=== PATIENT | female | born 1960 | race Caucasian/White ===

== ENCOUNTER 2016-07-09 17:07 | Emergency (ER) | payer MEDICAID ==
[~2016-07-09] VITALS: Ht 160 cm; Wt 125.0 kg
[~2016-07-09 17:07] MED LIST changes: -ACET-2890 PO; -ACET-62 PO; -CHLO25TA2 PO; -DOXY100T2 PO; -FISH1CAP2 PO; -HYDR25TA85 PO; -INSU100I3 SQ; -METF500T4 PO; -METH500C8 PO; -METO25TA6 PO; -TRIA15CR4 TOP; -[UNRECOGNIZED DRUG - CODE] PO
--- OUTSIDE RECORDS SUMMARY | 2016-07-09 17:11 | XMS REPORT ---
Author Author Shanta Wang Organization [employer] Address Unknown Phone Unavailable Care Team Providers Care Member Services Coordinator Name Role Phone Shanta Wang CP Unavailable Allergies No Known Allergies Problems Problem Type Condition Code Onset Dates Condition Status Problem Morbid obesity 278.01 Active Problem Atherosclerosis of other arteries I70.8 Active Problem Atherosclerosis of other specified arteries 440.8 Active Problem Pain in right knee M25.561 Active Problem Atherosclerotic heart disease of [place] coronary artery without angina pectoris I25.10 Active Problem Postprocedural hypertension I97.3 Active Problem Type 2 diabetes mellitus without complications E11.9 Active Problem Morbid (severe) obesity due to excess calories E66.01 Active Problem Essential (primary) hypertension I10 Active Problem Mixed hyperlipidemia E78.2 Active Problem 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 Active Problem Pain in joint, pelvic region and thigh 719.45 Active Problem Mixed hyperlipidemia 272.2 Active Problem Diabetes Mellitus Type 2, not stated as uncontrolled 250.00 Active Problem Hypertension, benign 401.1 Active Problem Unspecified hearing loss 389.9 Active Medications No Known Medications Results No Known Results Summary Purpose [employer]Clinical[employer] Submission
--- OUTSIDE RECORDS SUMMARY | 2016-07-09 17:11 | XMS REPORT ---
Author Author Shanta Wang [facility] e[employer] Address Unknown Phone Unavailable Care Team Providers Care Real Estate Processor Name Role Phone Shanta Wang CP Unavailable Allergies No Known Allergies Problems Problem Type Condition ICD-9 Code Onset Dates Condition Status Problem Mixed hyperlipidemia 272.2 Active Assessment Diabetes Mellitus Type 2, not stated as uncontrolled 250.00 Active Problem Morbid obesity 278.01 Active Problem Unspecified hearing loss 389.9 Active Problem Atherosclerosis of other specified arteries 440.8 Active Problem 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 Active Problem Hypertension, benign 401.1 Active Problem Diabetes Mellitus Type 2, not stated as uncontrolled 250.00 Active Problem Pain in joint, pelvic region and thigh 719.45 Active Medications Medication Code System Code Instructions Start Date End Date Status Dosage Levemir Flexpen [facility] [address]-30 100 UNIT/ML Subcutaneous at bedtime May 27, 2013 33 units at bedtime daily Results No Known Results Summary Purpose [employer]Clinical[employer] Submission
--- OUTSIDE RECORDS SUMMARY | 2016-07-09 17:11 | XMS REPORT ---
Author Author Shanta Wang Organization [employer] Address Unknown Phone Unavailable Care Team Providers Care Microsoft Dynamics Developer Name Role Phone Shanta Wang CP Unavailable Allergies No Known Allergies Problems Problem Type Condition Code Onset Dates Condition Status Problem Mixed hyperlipidemia 272.2 Active Problem Morbid obesity 278.01 Active Problem Unspecified hearing loss 389.9 Active Problem Atherosclerosis of other specified arteries 440.8 Active Problem 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 Active Problem Hypertension, benign 401.1 Active Problem Diabetes Mellitus Type 2, not stated as uncontrolled 250.00 Active Problem Pain in joint, pelvic region and thigh 719.45 Active Medications No Known Medications Results No Known Results Summary Purpose [employer]Clinical[employer] Submission
--- OUTSIDE RECORDS SUMMARY | 2016-07-09 17:11 | XMS REPORT ---
Author Abram Bear Organization [employer] Address Unknown Phone Unavailable Care Team Providers Care Field Nurse Case Manager Name Role Phone Abram Sutton CP Unavailable Allergies No Known Allergies Problems Problem Type Condition Code Onset Dates Condition Status Problem Morbid obesity 278.01 Active Problem Atherosclerosis of other arteries I70.8 Active Problem Atherosclerosis of other specified arteries 440.8 Active Problem Pain in right knee M25.561 Active Problem Atherosclerotic heart disease of [place] coronary artery without angina pectoris I25.10 Active Problem Postprocedural hypertension I97.3 Active Problem Type 2 diabetes mellitus without complications E11.9 Active Problem Morbid (severe) obesity due to excess calories E66.01 Active Problem Essential (primary) hypertension I10 Active Problem Mixed hyperlipidemia E78.2 Active Assessment Postprocedural hypertension I97.3 Active Assessment Type 2 diabetes mellitus without complications E11.9 Active Assessment Atherosclerosis of [place] arteries of extremities with intermittent claudication, bilateral legs I70.213 Active Assessment Hyperlipidemia, mixed E78.2 Active Problem 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 Active Problem Pain in joint, pelvic region and thigh 719.45 Active Problem Mixed hyperlipidemia 272.2 Active Problem Diabetes Mellitus Type 2, not stated as uncontrolled 250.00 Active Problem Hypertension, benign 401.1 Active Problem Unspecified hearing loss 389.9 Active Medications Medication Code System Code Instructions Start Date End Date Status Dosage Metoprolol Tartrate [facility] [address]-02 25 MG Orally Twice a day 1/ 2 tablet Lisinopril [facility] [address]-66 10 MG Orally Once a day 1 tablet MSM [facility] [address] 1500 MG Orally 2 in am, 1 hs as directed Fish Oil [facility] [address]-85 1000 MG Orally Once a day 1 capsule Levemir FlexTouch [facility] 3434[address]-25 100 units/mL Subcutaneous Once a day Feb 13, 2015 36 units at bedtime Multivitamins [facility] [address]-56 Orally as directed Tylenol Extra Strength [facility] [address]-97 500 MG Orally every 6 hrs 1 tablet as needed Simvastatin [facility] [address]-81 40 MG Orally Once a day 1 tablet in the evening OneTouch Ultra 2 [facility] [address]-65 w/Device Dx E11.9 qid. Include strips, glucometer June 12, 2015 as directed Aspirin [facility] [address]-71 325 MG Orally Once a day 1 tablet Vitamin C [facility] [address]00 500 MG Orally as directed NovoLog Flexpen [facility] [address]-49 100 UNIT/ML Subcutaneous three times a day May 27, 2013 14 units with breakfast and lunch and 25 units with supper Chlorthalidone [facility] [address]-15 25 MG Orally Once a day 1 tablet in the morning Metformin HCl [facility] [address]-39 500 MG Orally Twice a day Mar 23, 2015 1 tablet with meals Procedures Procedure Coding System Code Date IH MicroAlb/Creat Ratio, Urine CPT-4 85398 Dec 10, 2015 COMPLETE CBC W/AUTO DIFF WBC CPT-4 66740 Dec 10, 2015 IH MicroAlb/Creat Ratio, Urine CPT-4 59316 Dec 10, 2015 IH CMP CPT-4 84545 Dec 10, 2015 URINALYSIS WITH MICROSCOPIC CPT-4 25813 Dec 10, 2015 IH LIPID PANEL CPT-4 88247 Dec 10, 2015 Results No Known Results Summary Purpose eClinicalWorks Submission
--- OUTSIDE RECORDS SUMMARY | 2016-07-09 17:11 | XMS REPORT ---
Author Author Shanta aWng Organization [employer] Address Unknown Phone Unavailable Care Team Providers Care Newswriter Name Role Phone Shanta Wang CP Unavailable Allergies No Known Allergies Problems Problem Type Condition Code Onset Dates Condition Status Problem Morbid obesity 278.01 Active Problem Atherosclerosis of other arteries I70.8 Active Problem Atherosclerosis of other specified arteries 440.8 Active Problem Pain in right knee M25.561 Active Problem Atherosclerotic heart disease of [place] coronary artery without angina pectoris I25.10 Active [...]
--- OUTSIDE RECORDS SUMMARY | 2016-07-09 17:11 | XMS REPORT ---
Author Author Shanta Wang [facility] eClinicalWorks Address Unknown Phone Unavailable Care Team Providers Care Fountain Waitress/Waiter Name Role Phone Shanta Wang CP Unavailable Allergies No Known Allergies Problems Problem Type Condition Code Onset Dates Condition Status Problem Pain in joint, pelvic region and thigh 719.45 Active Problem Unspecified hearing loss 389.9 Active Problem Diabetes Mellitus Type 2, not stated as uncontrolled 250.00 Active Problem Mixed hyperlipidemia E78.2 Active Problem Type 2 diabetes mellitus without complications E11.9 Active Problem Essential (primary) hypertension I10 Active Problem Atherosclerosis of other specified arteries 440.8 Active Problem Morbid obesity 278.01 Active Problem Morbid (severe) obesity due to excess calories E66.01 Active Problem Atherosclerosis of other arteries I70.8 Active Problem Mixed hyperlipidemia 272.2 Active Problem Hypertension, benign 401.1 Active Problem 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
--- OUTSIDE RECORDS SUMMARY | 2016-07-09 17:11 | XMS REPORT ---
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
--- OUTSIDE RECORDS SUMMARY | 2016-07-09 17:12 | XMS REPORT | Continuity of Care Document ---
Author Author [facility] Organization [facility] Address Unknown Phone Unavailable Care Team Providers Care Mortgage Operations Manager Name Role Phone LEN RENE Primary Care Physician [phone] Insurance Providers Payer Name Policy Number Subscriber Name Relationship [facility] Plan [id number] Latisha Felder 16 Self Advance Directives Directive Response Recorded Date/Time Advanced Directives Type None 02/03/14 9:30pm Problems Medical Problems Problem Onset Date Status Cellulitis Unknown Active Medications Medication Dose Route Sig Days/Qty Instructions Order Date Discontinued Date Status Insulin Glargine 10 Unit SQ BEDTIME 08/26/10 11/10/11 Discontinued Insulin Aspart 12-23 U SQ DIRECTED 12 WITH BREAKFAST 08/26/10 Active Simvastatin 40 Mg PO BEDTIME 08/26/10 Active Aspirin 325 Mg PO DAILY 11/10/11 Active Insulin Detemir 33 U SQ BEDTIME 11/10/11 Active Lisinopril 5 Mg PO DAILY 11/10/11 Active Multivitamins 1 Tab PO DAILY 11/10/11 Active Ascorbic Acid 1,000 Mg PO DAILY 11/10/11 Active [place]-3 Fatty Acids/Fish Oil 1,000 Mg PO DAILY 01/10/14 Active Gluc HCl/MSM/C/Mn/Greer/Ging 1 Tab PO TWICE A DAY 01/10/14 Active Amoxicillin/Potassium Clav 1 Tab PO Q12H 10 Days 02/03/14 Active Social History Social History Problem Response Recorded Date/Time Chewing Tobacco Status No 11/11/2011 9:40am Hx Substance Use No 02/03/2014 9:30pm Hx Alcohol Use No 02/03/2014 9:30pm Has the pt used tobacco in the last 12 months No 01/10/2014 10:30am Query Response Start Date Stop Date Smoking Status Never smoker Hospital Discharge Instructions No hospital discharge instructions. Plan of Care No plan of care. Functional Status Query Response Date Recorded Physical Hygiene Self February 03, 2014 9:30pm Disabilities Visual February 03, 2014 9:30pm Devices Used Glasses Walker February 03, 2014 9:30pm Dressing Self February 03, 2014 9:30pm Ambulation Self February 03, 2014 9:30pm Diet Self February 03, 2014 9:30pm Mental Status Alert Oriented February 03, 2014 9:30pm Disabilities Visual February 03, 2014 9:30pm Devices Used Glasses Walker February 03, 2014 9:30pm Physical Hygiene Self February 03, 2014 9:30pm Dressing Self February 03, 2014 9:30pm Ambulation Self February 03, 2014 9:30pm Diet Self February 03, 2014 9:30pm Allergies, Adverse Reactions, Alerts Allergen Type Severity Reaction Status Last Updated Ibuprofen Allergy Intermediate KIDNEY FAILURE Active 02/03/14 Immunizations Name Given Type Hx Influenza Vaccination Y FALL 2013 Historical Hx Pneumococcal Vaccination No Historical Hx Influenza Vaccination Y FALL 2013 Historical Vital Signs Acute Vital Signs Vital Response Date/Time Temperature (Fahrenheit) 97.6 deg F (96.8 - 99.1) Temperature (Calculated Celsius) 36.37613 degrees C (36.0 - 37.3) Pulse Rate (adult) 88 bpm (60 - 100) Respiratory Rate 20 breaths/min (10 - 20) O2 Sat by Pulse Oximetry 96 % (90 - 100) Blood Pressure 140/76 mm Hg Height 5 ft 4 in Weight 279 lb Body Mass Index 47.0 kg/m^2 Results Test Source Date Result Interp. Ref. Range Comments Activated Partial Thromboplast Time August 26, 2010 10:35am 26.5 SEC N 24- 36 Alanine Aminotransferase (ALT/SGPT) January 21, 2012 10:15am 31 U/L N 9 -52 Albumin January 21, 2012 10:15am 4.0 G/DL N 3.5-5.0 Albumin/Globulin Ratio January 21, 2012 10:15am 1.4 RATIO N 1.1-2.2 Alkaline Phosphatase January 21, 2012 10:15am 113 U/L N 38-126 Amylase Level August 26, 2010 10:40am 36 U/L N 30-110 Anion Gap January 21, 2012 10:15am 10 MEQ/L N 5-15 Aspartate Amino Transf (AST/SGOT) January 21, 2012 10:15am 31 U/L N 14- 36 B-Type Natriuretic Peptide August 26, 2010 10:35am 406 PG/ML H 15-100 BUN/Creatinine Ratio January 21, 2012 10:15am 29 RATIO H 6-26 Basophils # (Auto) November 11, 2011 10:09am 0.0 T/MM3 N 0-0.2 COMMENT will call when pt arrives Basophils (%) (Auto) November 11, 2011 10:09am 0.9 % N 0-2 COMMENT will call when pt arrives Blood Urea Nitrogen January 21, 2012 10:15am 29.0 MG/DL H 7-17 Calcium Level January 21, 2012 10:15am 9.2 MG/DL N 8.4-10.2 Calculated Osmolality January 21, 2012 10:15am 279 MOSM/KG N 261-280 Carbon Dioxide Level January 21, 2012 10:15am 26 MEQ/L N 22-30 Chloride Level January 21, 2012 10:15am 105 MEQ/L N 98-107 Cholesterol Level January 21, 2012 10:15am 144 MG/DL N 132-199 Cholesterol/HDL Ratio January 21, 2012 10:15am 3.2 RATIO N 0-4.0 Conjugated Bilirubin October 25, 2010 10:00am 0.00 MG/DL N 0.00-0.30 Creatine Kinase MB August 26, 2010 1:50pm 66.8 NG/ML H 0-3.4 Creatinine January 21, 2012 10:15am 1.0 MG/DL N 0.7-1.2 Eosinophils # (Auto) November 11, 2011 10:09am 0.2 T/MM3 N 0-0.5 COMMENT will call when pt arrives Eosinophils (%) (Auto) November 11, 2011 10:09am 6.0 % H 0-4 COMMENT will call when pt arrives Globulin January 21, 2012 10:15am 2.8 G/DL N 2.4-3.6 Glucose Level January 21, 2012 10:15am 130 MG/DL H 65-110 Hematocrit November 11, 2011 10:09am 39.7 % N 36-46 COMMENT will call when pt arrives Hemoglobin November 11, 2011 10:09am 13.0 GM/DL N 12-16 COMMENT will call when pt arrives Hemoglobin A1c January 21, 2012 10:15am 5.9 % DL 6-7 <6.0 NON- DIABETIC RANGE6.0-7.0 ADA THERAPEUTIC RANGE >7.0 ACTION SUGGESTED LDL Cholesterol, Calculated January 21, 2012 10:15am 99 N 66-159 Lipase August 26, 2010 10:40am 77 U/L N 23-300 Lymphocytes # (Auto) November 11, 2011 10:09am 1.2 T/MM3 N 1-4.8 COMMENT will call when pt arrives Lymphocytes (%) (Auto) November 11, 2011 10:09am 33.0 % N 23-45 COMMENT will call when pt arrives Mean Corpuscular Hemoglobin November 11, 2011 10:09am 28.4 UUG N 26-34 COMMENT will call when pt arrives Mean Corpuscular Hemoglobin Concent November 11, 2011 10:09am 32.7 GM/DL N 31-37 COMMENT will call when pt arrives Mean Corpuscular Volume November 11, 2011 10:09am 86.9 UM3 N 80-100 COMMENT will call when pt arrives Mean Platelet Volume November 11, 2011 10:09am 8.9 UM3 L 9.4-12.4 COMMENT will call when pt arrives Monocytes # (Auto) November 11, 2011 10:09am 0.3 T/MM3 N 0-0.8 COMMENT will call when pt arrives Monocytes (%) (Auto) November 11, 2011 10:09am 7.7 % N 0-9.0 COMMENT will call when pt arrives Neutrophils # (Auto) November 11, 2011 10:09am 1.8 T/MM3 N 1.8-7.7 COMMENT will call when pt arrives Neutrophils (%) (Auto) November 11, 2011 10:09am 52.1 % N 33-66 COMMENT will call when pt arrives Platelet Count November 11, 2011 10:09am 154 T/MM3 N 130-400 COMMENT will call when pt arrives Potassium Level January 21, 2012 10:15am 4.9 MEQ/L N 3.6-5 Prothromb Time International Ratio August 26, 2010 10:35am 1.11 H 0.86- 1.10 THERAPUTIC RANGE=2.00-3.00 FOR ANTI-THROMBOSIS THERAPUTIC RANGE=2.50- 3.50 FOR IMPLANTED VALVE RDW Standard Deviation November 11, 2011 10:09am 42.0 FL N 36.9-50.2 COMMENT will call when pt arrives Red Blood Count November 11, 2011 10:09am 4.57 M/MM3 N 4.00-5.20 COMMENT will call when pt arrives Sodium Level January 21, 2012 10:15am 141 MEQ/L N 134-144 Thyroid Stimulating Hormone (TSH) October 23, 2011 12:55pm 0.99 MIU/L N 0.47-4.68 Total Bilirubin January 21, 2012 10:15am 0.30 MG/DL N 0.20-1.30 Total Creatine Kinase August 26, 2010 1:50pm 667 U/L H 30-135 Total Protein January 21, 2012 10:15am 6.8 G/DL N 6.3-8.2 Triglycerides Level January 21, 2012 10:15am 116 MG/DL N 35-135 Troponin I August 26, 2010 1:50pm 9.270 ng/ml DPH 0-0.12 Unconjugated Bilirubin October 25, 2010 10:00am 0.30 MG/DL N 0.00- 1.10 Urine Microalbumin January 26, 2012 12:15pm < 5.0 MG/L 0-17 Urine Random Microalbumin January 31, 2011 10:42am Ref lab rpt scanned - --- 02/03/11914 ---ALBR previously reported as: SEND OUT VLDL Cholesterol January 21, 2012 10:15am 23.2 MG/DL N 0-28 White Blood Count November 11, 2011 10:09am 3.5 T/MM3 L 4.5-11.0 COMMENT will call when pt arrives Glucometer January 11, 2014 7:32am 111 mg/dL H 65-110 Lab Scanned Report January 26, 2012 9:09pm LAB TEST FORM REQUEST [id number] - HDL Cholesterol Direct January 21, 2012 10:15am 45 MG/DL N 40-60 Glomerular Filtration Rate Calc January 21, 2012 10:15am 58 - Immature Granulocyte # (Auto) November 11, 2011 10:09am 0.01 T/MM3 N 0.00-0.03 COMMENT will call when pt arrives Immature Granulocyte % (Auto) November 11, 2011 10:09am 0.3 % N 0.0- 0.5 COMMENT will call when pt arrives Procedures Procedure Status Date Provider(s) COMP SCREEN MAMMOGRAM ADD-ON completed 12/28/13 MAMMOGRAM SCREENING completed 12/28/13 LESION REMOVE COLONOSCOPY completed 01/11/14 SCOTT CALDERON MD REAGENT STRIP/BLOOD GLUCOSE completed 01/11/14 [id number]"RINGERS LACTATE INFUSION, UP TO 1000 CC" completed 01/11/14 Encounters Encounter Location Date/Time Departed Emergency Room [facility] 02/03/14 7:17pm Registered Clinic [facility] 12/28/13 9:22am Registered [facility] 12/22/13 9:30am Registered Clinic [facility] 11/28/13 11:28am Recent Diagnosis
--- OUTSIDE RECORDS SUMMARY | 2016-07-09 17:12 | XMS REPORT | Continuity of Care Document ---
Author Author [facility] Organization [facility] Address Unknown Phone Unavailable Care Team Providers Care Brick Mason Name Role Phone David MELLO MD Primary Care Physician [phone] Insurance Providers Guarantor Latisha Felder Address [address] [id number] C Email DENIED/NO TO PT PORTAL Payer [facility] Community Plan Policy Number [id number] Subscriber's Name JaxonAzulLatisha Slick Relationship 18 Self Effective Date 15 Expiration Date 15 Advance Directives Directive Response Recorded Date/Time Ordered Resuscitation Status Full Code 10/16/15 10:37am Resuscitation Documents on File No 10/16/15 12:13pm DPOA for Healthcare Only No 10/16/15 12:13pm Living Will No 10/16/15 12:13pm Problems Active Problems Medical Problem Onset Date Status Cellulitis Unknown Acute Cellulitis Unknown Acute Medications Current Home Medications Medication Dose Units Route Directions Days Qty Instructions Start Date Ascorbic Acid (Vitamin C) 500 Mg Tablet 1 Tab Oral Daily 10/16/15 Aspirin 325 Mg Tablet 325 Mg Oral Daily 11/10/11 Gluc Hcl/Msm/C/Mn/[place]/Ging (Msm Glucosamine Complex Tab) 1 Each Tablet 1 Tab Oral Twice A Day 01/10/14 Insulin Aspart (Novolog) 100 U/Ml Cartridge 12-23 U Sub-Q As Directed 14 WITH BREAKFAST 14 WITH LUNCH 23 WITH DINNER 08/26/10 Insulin Detemir (Levemir) 100 U/Ml Insuln.pen 35 U Sub-Q Bedtime 11/10/11 Lisinopril 10 Mg Tablet 10 Mg Oral Daily for Hypertension Multivitamins (Multivitamin) 1 Tab Tablet 1 Tab Oral Daily [place]-3S/Dha/Epa/Fish Oil (Fish Oil 1,200 Mg Softgel) 1 Each Capsule 1,200 Mg Oral Daily 10/16/15 Simvastatin 40 Mg Tablet 40 Mg Oral Bedtime 08/26/10 Past Home Medications Medication Directions Ordered Status Insulin Glargine (Lantus Solostar) 1 Unit Pen, 10 Unit Sub-Q Bedtime Discontinued Social History Social History Problem Response Recorded Date/Time Onset Date Status Reason for Hospitalization [facility] 10/16/2015 6:54pm Not Applicable Not Applicable Chewing Tobacco Status No 11/11/2011 9:40am Not Applicable Not Applicable Hx Substance Use No 10/16/2015 12:22pm Not Applicable Not Applicable Hx Alcohol Use No 10/16/2015 12:22pm Not Applicable Not Applicable Has the pt used tobacco in the last 12 months No 10/16/2015 12:22pm Not Applicable Not Applicable Query Response Start Date Stop Date Smoking Status Former smoker Hospital Discharge Instructions Instructions: Care Instructions: Reason for Hospitalization: [facility] I was in the hospital because (patient own words): "CHECK MY ARTERIES" Discharge Activity: Light Activity for: 1 week Lift no more than 10 pounds for: 1 week (includes no pulling, pushing, tugging) Follow Up Appointments: FOLLOW UP WITH DR. BULLOCK IN HIS OFFICE ON 11/13/2015 AT 11:50 AM. Pending Lab / Results: No Pending Lab Patient Instructions: Do not drive, operate machinery, drink alcohol for: 1 week Wound/Incision Care: Keep clean and dry Notify Physician If: develop redness, swelling or drainage at site or for fever more than 101.5 degrees Condition at time of discharge: Good Plan of Care Discharge Date 10/16/15 8:10pm Instructions/Education Provided [facility] [place] Heart Cath Prescriptions See Medication Section Functional Status Query Response Date Recorded Mobility Status Ambulatory October 16, 2015 12:18pm Assistive Devices Standard Walker October 16, 2015 12:18pm Activity Limitations None October 16, 2015 12:18pm Feeding Ability Independent October 16, 2015 12:18pm Toileting Ability Independent October 16, 2015 12:18pm Grooming Ability Independent October 16, 2015 12:18pm Dressing Ability Independent October 16, 2015 12:18pm Driving Ability Independent October 16, 2015 12:18pm Housework Ability Assist October 16, 2015 12:18pm Meal Preparation Ability Assist October 16, 2015 12:18pm Stair Climbing Ability Assist October 16, 2015 12:18pm Ability to complete ADL's impeded by No change October 16, 2015 12:18pm Cognitive/Perceptual Impairments Impaired vision October 16, 2015 12:18pm Visual Assistive Devices Glasses October 16, 2015 12:18pm Preferred Method of Learning Reading Listening October 16, 2015 12:18pm Allergies, Adverse Reactions, Alerts Allergen Type Severity Reaction Status Last Updated Ibuprofen Allergy Intermediate KIDNEY FAILURE Active 10/16/15 Immunizations Query Response on File Recorded Date/Time Hx Influenza Vaccination Y fall 201410/16/15 12:22pm Hx Pneumococcal Vaccination No 10/16/15 12:22pm Hx Influenza Vaccination Y fall 201410/16/15 12:22pm Influenza Vaccine Hx fall 201410/16/15 12:21pm Vital Signs Acute Vital Signs Vital Response Date/Time Temperature (Fahrenheit) 97.4 deg F (96.8 - 99.1) 10/16/2015 7:42pm Temperature (Calculated Celsius) 36.48766 degrees C (36.0 - 37.3) 10/16/2015 7:42pm Temperature Source Oral 10/16/2015 7:42pm Pulse Rate (adult) 97 bpm (60 - 100) 10/16/2015 7:42pm Respiratory Rate 25 breaths/min (10 - 20) 10/16/2015 7:42pm O2 Sat by Pulse Oximetry 96 % (90 - 100) 10/16/2015 7:42pm Oxygen Delivery Method Room Air 10/16/2015 7:42pm Oxygen Delivery Method Room Air 10/16/2015 12:29pm Blood Pressure 115/59 mm Hg 10/16/2015 7:42pm Blood Pressure Source Automatic Cuff 10/16/2015 7:42pm Height (Feet) 5 feet 10/16/2015 12:12pm Height (Inches) 4.00 inches 10/16/2015 12:12pm Weight (Kilograms) 126.000 kg 10/16/2015 12:21pm Body Mass Index (BMI) 47.7 10/16/2015 12:12pm Results Laboratory Results Test Name Result Units Flags Reference Collection Date/Time Result Date/ Time Comments White Blood Count 4.0 T/MM3 L 4.5-11.0 10/16/2015 12:50pm 10/16/2015 1: 18pm Red Blood Count 4.13 M/MM3 4.00-5.20 10/16/2015 12:50pm 10/16/2015 1: 18pm Hemoglobin 12.3 GM/DL 12-16 10/16/2015 12:50pm 10/16/2015 1:18pm Hematocrit 38.3 % 36-46 10/16/2015 12:50pm 10/16/2015 1:18pm Mean Corpuscular Volume 92.7 UM3 80-100 10/16/2015 12:50pm 10/16/2015 1 :18pm Mean Corpuscular Hemoglobin 29.8 UUG 26-34 10/16/2015 12:50pm 2015 1:18pm Mean Corpuscular Hemoglobin Concent 32.1 GM/DL 31-37 10/16/2015 12:50pm 10/16/2015 1:18pm RDW Standard Deviation 45.5 FL 36.9-50.2 10/16/2015 12:50pm 10/16/2015 1:18pm Platelet Count 170 T/MM3 130-400 10/16/2015 12:50pm 10/16/2015 1:18pm Mean Platelet Volume 9.4 UM3 9.4-12.4 10/16/2015 12:50pm 10/16/2015 1: 18pm Neutrophils (%) (Auto) 53.4 % 33-66 10/16/2015 12:50pm 10/16/2015 1: 18pm Lymphocytes (%) (Auto) 34.7 % 23-45 10/16/2015 12:50pm 10/16/2015 1: 18pm Monocytes (%) (Auto) 7.3 % 0-9.0 10/16/2015 12:50pm 10/16/2015 1:18pm Eosinophils (%) (Auto) 3.5 % 0-4 10/16/2015 12:50pm 10/16/2015 1:18pm Basophils (%) (Auto) 0.8 % 0-2 10/16/2015 12:50pm 10/16/2015 1:18pm Immature Granulocyte % (Auto) 0.3 % 0.0-0.5 10/16/2015 12:50pm 2015 1:18pm Absolute Neutrophils (auto) 2.1 T/MM3 1.8-7.7 10/16/2015 12:50pm 2015 1:18pm Absolute Lymphocytes (auto) 1.4 T/MM3 1-4.8 10/16/2015 12:50pm 2015 1:18pm Absolute Monocytes (auto) 0.3 T/MM3 0-0.8 10/16/2015 12:50pm 2015 1:18pm Absolute Eosinophils (auto) 0.1 T/MM3 0-0.5 10/16/2015 12:50pm 2015 1:18pm Absolute Basophils (auto) 0.0 T/MM3 0-0.2 10/16/2015 12:50pm 2015 1:18pm Absolute Immature Granulocyte (auto 0.01 T/MM3 0.00-0.03 10/16/2015 12: 50pm 10/16/2015 1:18pm Icterus Index < 2 0-7 10/16/2015 12:50pm 10/16/2015 1:26pm Chemistry Specimen Hemolysis < 15 0-25 10/16/2015 12:50pm 10/16/2015 1:26pm 0-25: Specimen Exhibited No Hemolysis. Turbidity < 20 0-20 10/16/2015 12:50pm 10/16/2015 1:26pm Sodium Level 143 MEQ/L 134-144 10/16/2015 12:50pm 10/16/2015 1:26pm Potassium Level 4.4 MEQ/L 3.6-5 10/16/2015 12:50pm 10/16/2015 1:26pm Chloride Level 106 MEQ/L 98-107 10/16/2015 12:50pm 10/16/2015 1:26pm Carbon Dioxide Level 24 MEQ/L 22-30 10/16/2015 12:50pm 10/16/2015 1: 26pm Anion Gap 13 MEQ/L 5-15 10/16/2015 12:50pm 10/16/2015 1:26pm Blood Urea Nitrogen 19.0 MG/DL H 7-17 10/16/2015 12:50pm 10/16/2015 1: 26pm Creatinine 0.8 MG/DL 0.7-1.2 10/16/2015 12:50pm 10/16/2015 1:26pm BUN/Creatinine Ratio 24 RATIO 6-26 10/16/2015 12:50pm 10/16/2015 1: 26pm Glomerular Filtration Rate Calc 74 10/16/2015 12:50pm 10/16/2015 1: 26pm Glucose Level 130 MG/DL H 65-110 10/16/2015 12:50pm 10/16/2015 1:26pm Calculated Osmolality 279 MOSM/KG 261-280 10/16/2015 12:50pm 2015 1:26pm Calcium Level 9.5 MG/DL 8.4-10.2 10/16/2015 12:50pm 10/16/2015 1:26pm Procedures Procedure Status Date Provider(s) LOWER EXTREMITY STUDY Completed 08/15/15 EXTREMITY STUDY Completed 08/15/15 Encounters Encounter Location Arrival/Admit Date Discharge/Depart Date Attending Provider Departed [facility] 10/16/15 11:55am 10/16/15 8:10pm MARCE BULLOCK MD Registered [facility] 08/15/15 2:35pm DANI CALIX DO
--- OUTSIDE RECORDS SUMMARY | 2016-07-09 17:12 | XMS REPORT ---
Author Author Shanta Wang [facility] eClinicalWorks Address Unknown Phone Unavailable Care Team Providers Care Jewelry Setter Name Role Phone Shanta Wang CP Unavailable [...] Instructions Start Date End Date Status Dosage oger Blood Glucose Test [facility] [address] none In Vitro Four times a day Dx E11.9 Jan 17, 2015 as directed Results No Known Results Summary Purpose Your Energy[employer] Submission
--- OUTSIDE RECORDS SUMMARY | 2016-07-09 17:12 | XMS REPORT ---
Author Author Shanta Wang eClinicalWorks Address Unknown Phone Unavailable Care Team Providers Care Clerical Dentist Assistant Name Role Phone Shanta Wang CP Unavailable Allergies, Adverse Reactions, Alerts Substance Reaction Event Type Ibuprofen kidney failure Drug Allergy Problems Problem Type Condition Code Onset Dates [...] Atherosclerosis of other arteries I70.8 Active Assessment Atherosclerosis of other arteries I70.8 Active Assessment Morbid (severe) obesity due to excess calories E66.01 Active Assessment Encounter for screening for malignant neoplasm of cervix Z12.4 Active Assessment Encounter for immunization Z23 Active Assessment Essential (primary) hypertension I10 Active Problem Mixed hyperlipidemia 272.2 Active Assessment Type 2 diabetes mellitus without complications E11.9 Active Problem Hypertension, benign 401.1 Active Assessment Mixed hyperlipidemia E78.2 Active Problem 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 Active Medications Medication Code System Code Instructions Start Date End Date Status Dosage Metoprolol Tartrate [facility] [address]-96 25 MG Orally Twice a day 1/ 2 tablet Simvastatin [facility] [address]-18 40 MG Orally Once a day 1 tablet in the evening NovoLog Flexpen [facility] [address]-71 100 UNIT/ML Subcutaneous three times a day May 27, 2013 14 units with breakfast and lunch and 23 units with supper MSM [facility] [address] 1500 MG Orally 2 in am, 1 hs as directed [employer] Blood Glucose Test [facility] [address] none In Vitro Four times a day Dx E11.9 Jan 17, 2015 as directed Aspirin [facility] [address]-66 325 MG Orally Once a day 1 tablet Victoza [facility] [address]-11 18 MG/3ML Subcutaneous Once a day Mar 05, 2015 July 03, 2015 0.6mg for 1 week then 1.2 mg for 1 week then 1.8 mg daily Levemir FlexTouch [facility] 1639-4[address]-77 100 units/mL Subcutaneous Once a day Feb 13, 2015 35 units at bedtime Vitamin C [facility] [address] 500 MG Orally as directed Multivitamins [facility] [address]-91 Orally as directed Tylenol Extra Strength [facility] [address]-49 500 MG Orally every 6 hrs 1 tablet as needed Fish Oil [facility] [address]-29 1000 MG Orally Once a day 1 capsule Chlorthalidone [facility] [address]-73 25 MG Orally Once a day 1 tablet in the morning Lisinopril [facility] [address]-45 10 MG Orally Once a day 1 tablet Procedures Procedure Coding System Code Date OFFICE VISIT, EST-MOD. COMPLEXITY (25 MIN) CPT-4 61559 Mar 05, 2015 URINALYSIS, IN HOUSE CPT-4 66413 Mar 05, 2015 HEMOGLOBIN A1C, IN [place] CPT-4 00066 Mar 05, 2015 IH LIPID PANEL CPT-4 16797 Mar 05, 2015 IH CMP CPT-4 98192 Mar 05, 2015 ADMINISTRATION, 1ST IMMUNIZATION CPT-4 28955 Mar 05, 2015 FLU VACCINE NO PRESERV 3 & > CPT-4 91712 Mar 05, 2015 Vital Signs Date/Time: Mar 05, 2015 Height 65 in Weight 260 lbs Temperature 97.5 F Blood Pressure Diastolic 67 mm Hg Blood Pressure Systolic 104 mm Hg Cardiac Monitoring Heart Rate 79 /min BMI 43.26 Index Respiratory Rate 16 /min Results Name Result Date Reference Range Unit Abnormality Flag In House CMP ----AST 21 20150306 11 - 38 u/L ----ALT 26 20150306 10 - 47 u/L ----CO2 26 20150306 18 - 33 mmol/L ----Chloride 102 20150306 98 - 108 mmol/L ----Glucose 176* 20150306 73 - 118 mg/DL ----Calcium 9.5 20150306 8.0 - 10.3 mg/DL ----BUN 25* 20150306 7 - 22 mg/DL ----Total Protein 7.3 20150306 6.4 - 8.1 G/DL ----Creatinine 1.0 59542143 0.6 - 1.2 mg/DL ----Sodium 149* 20150306 128 - 145 mmol/L ----Alkaline Phosphatase 96 20150306 53 - 128 u/L ----Albumin 3.7 58308357 3.3 - 5.5 g/DL ----Potassium >8.5* 16695501 3.6 - 5.1 mmol/L ----Total Bilirubin 0.6 21209499 0.2 - 1.6 mg/DL In House Lipid Panel ----Chol/HDL Ratio 3.6 20150306 ----nHDLc 112 20150306 ----VLDL 47 20150306 ----LDL 66 20150306 ----Cholesterol 156 20150306 ----Triglycerides 234 20150306 ----HDL 43 20150306 In House HB A1c ----Hemoglobin A1c 7.7 20150305 In [place] Urinalysis, automated ----ANY small 20150305 ----BLO negative 20150305 ----NIT negative 20150305 ----SG >=1.030 20150305 ----PRO 30 20150305 ----URO 0.2 20150305 ----pH 5.0 20150305 ----CHANELLE negative 20150305 ----KET negative 20150305 ----Clarity clear 20150305 ----GLU negative 20150305 ----Color yellow 20150305 Immunizations Vaccine Administration Date Influenza shot 4 y.o. and older Mar 05, 2015 Summary Purpose eClinicalWorks Submission
--- OUTSIDE RECORDS SUMMARY | 2016-07-09 17:12 | XMS REPORT ---
Author Author Shanta Wang [facility] eClinicalWorks Address Unknown Phone Unavailable Care Team Providers Care Calculating Machine Operator Name Role Phone Shanta Wang CP Unavailable [...] Instructions Start Date End Date Status Dosage Metformin HCl [facility] [address]-04 500 MG Orally Twice a day Mar 23, 2015 1 tablet with meals Results No Known Results Summary Purpose eClinicalWorks Submission
--- OUTSIDE RECORDS SUMMARY | 2016-07-09 17:12 | XMS REPORT | Continuity of Care Document ---
Author Author [facility] Organization [facility] Address Unknown Phone Unavailable Care Team Providers Care Bottom Liner Name Role Phone LEN RENE Primary Care Physician [phone] Insurance Providers Payer Name Policy Number Subscriber Name Relationship [facility] Community Plan [id number] Latisha Felder 18 Self Advance Directives Directive [...] Acid 1,000 Mg PO DAILY 11/10/11 Active [place]-3 Fatty Acids/Fish Oil 1,000 Mg PO DAILY 01/10/14 Active Gluc HCl/MSM/C/Mn/[place]/Ging 1 Tab PO TWICE A DAY 01/10/14 [...] F (96.8 - 99.1) Temperature (Calculated Celsius) 36.14268 degrees C (36.0 - 37.3) Pulse Rate [...] 26, 2012 9:09pm LAB TEST FORM REQUEST [id number] - HDL Cholesterol Direct January 21, 2012 [...] CALDERON MD REAGENT STRIP/BLOOD GLUCOSE completed 01/11/14 [id number]"RINGERS LACTATE INFUSION, UP TO 1000 CC" completed 01/11/14 Encounters Encounter Location Date/Time Departed Emergency Room [facility] 02/03/14 7:17pm Registered Clinic [facility] 12/28/13 9:22am Discharged Recurring [facility] 12/22/13 9:30am Registered Clinic [facility] 11/28/13 11:28am Recent Diagnosis
--- OUTSIDE RECORDS SUMMARY | 2016-07-09 17:12 | XMS REPORT | Continuity of Care Document ---
Author Author [facility] Organization [facility] Address Unknown Phone Unavailable Care Team Providers Care Junior Software Developer Name Role Phone LEN RENE Primary Care Physician [phone] Insurance Providers Payer Name Policy Number Subscriber Name Relationship [facility] Community Plan [id number] Latisha Felder 16 Self Advance Directives Directive Response Recorded Date/Time Ordered Resuscitation Status Full Code 01/10/14 12:08pm Resuscitation Documents on File No 01/10/14 10:30am Problems No known problems or medical conditions. Medications Medication Dose Route Sig Days/Qty Instructions [...] Acid 1,000 Mg PO DAILY 11/10/11 Active [place]-3 Fatty Acids/Fish Oil 1,000 Mg PO DAILY 01/10/14 Active Gluc HCl/MSM/C/Mn/[place]/Ging 1 Tab PO TWICE A DAY 01/10/14 Active Social History Social History Problem Response Recorded Date/Time Smoking Status Former smoker 01/10/2014 10:30am When did patient STOP smoking? AGE 48 01/10/2014 10:30am Chewing Tobacco Status No 11/11/2011 9:40am Hx Substance Use No 01/10/2014 10:30am Hx Alcohol Use No 01/10/2014 10:30am Has the pt used tobacco in the last 12 months No 01/10/2014 10:30am Query Response Start Date Stop Date Smoking Status Former smoker Hospital Discharge Instructions No hospital discharge instructions. Plan of Care No plan of care. Functional Status No functional status results. Allergies, Adverse Reactions, Alerts Allergen Type Severity Reaction Status Last Updated Ibuprofen Allergy Intermediate KIDNEY FAILURE Active 08/26/10 Immunizations Name Given Type Hx Influenza Vaccination Y FALL 2013 Historical Hx Pneumococcal Vaccination No Historical Hx Influenza Vaccination Y FALL 2013 Historical Vital Signs Acute Vital Signs Vital Response Date/Time Temperature (Fahrenheit) 98.8 deg F (96.8 - 99.1) Temperature (Calculated Celsius) 37.42181 degrees C (36.0 - 37.3) Temperature Source Temporal Pulse Rate (adult) 95 bpm (60 - 100) Respiratory Rate 16 breaths/min (10 - 20) O2 Sat by Pulse Oximetry 95 % (90 - 100) Oxygen Delivery Method Room Air Blood Pressure 117/77 mm Hg Blood Pressure Source Automatic Cuff Height 5 ft 4 in Weight 273 lb Body Mass Index 46.0 kg/m^2 Results Test Source Date Result Interp. [...] 21, 2012 10:15am 2.8 G/DL N 2.4-3.6 Glomerular Filtration Rate Calc January 21, 2012 10:15am 58 - Glucometer January 11, 2014 7:32am 111 mg/dL H 65-110 Glucose Level January 21, 2012 10:15am 130 MG/DL H 65-110 HDL Cholesterol Direct January 21, 2012 10:15am 45 MG/DL N 40-60 Hematocrit November 11, 2011 10:09am 39.7 % N 36-46 COMMENT will call when pt arrives Hemoglobin November 11, 2011 10:09am 13.0 GM/DL N 12-16 COMMENT will call when pt arrives Hemoglobin A1c January 21, 2012 10:15am 5.9 % DL 6-7 <6.0 NON- DIABETIC RANGE6.0-7.0 ADA THERAPEUTIC RANGE >7.0 ACTION SUGGESTED Immature Granulocyte # (Auto) November 11, 2011 10:09am 0.01 T/MM3 N 0.00-0.03 COMMENT will call when pt arrives Immature Granulocyte % (Auto) November 11, 2011 10:09am 0.3 % N 0.0- 0.5 COMMENT will call when pt arrives LDL Cholesterol, Calculated January 21, 2012 10:15am 99 N 66-159 Lab Scanned Report January 26, 2012 9:09pm LAB TEST FORM REQUEST [id number] - Lipase August 26, 2010 10:40am 77 U/L [...] Ref lab rpt scanned - --- 02/03/11914 ---UMALBR previously reported as: SEND OUT VLDL Cholesterol January 21, 2012 10:15am 23.2 MG/DL N 0-28 White Blood Count November 11, 2011 10:09am 3.5 T/MM3 L 4.5-11.0 COMMENT will call when pt arrives Procedures Procedure Status Date Provider(s) COMP SCREEN MAMMOGRAM ADD-ON completed 12/28/13 MAMMOGRAM SCREENING completed 12/28/13 Colonoscopy completed 01/11/14 SCOTT CALDERON MD Encounters Encounter Location Date/Time Registered [facility] 12/28/13 9:22am Registered [facility] 11/28/13 11:28am
--- OUTSIDE RECORDS SUMMARY | 2016-07-09 17:12 | XMS REPORT ---
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 Problem Mixed hyperlipidemia E78.2 Active Problem Type 2 diabetes mellitus without complications E11.9 Active Problem Atherosclerotic heart disease of [place] coronary artery without angina pectoris I25.10 Active Problem Essential (primary) hypertension I10 Active Assessment Dysuria R30.0 Active Problem Mixed hyperlipidemia 272.2 Active Problem Pain in joint, pelvic region and thigh 719.45 Active Problem Diabetes Mellitus Type 2, not stated as uncontrolled 250.00 Active Problem Hypertension, benign 401.1 Active Problem Unspecified hearing loss 389.9 Active Problem 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
--- OUTSIDE RECORDS SUMMARY | 2016-07-09 17:12 | XMS REPORT ---
Author Author Shanta Wang eClinicalWorks Address Unknown Phone Unavailable Care Team Providers Care Physicist Astrophysics Name Role Phone Shanta Wang CP Unavailable Allergies, Adverse Reactions, Alerts Substance Reaction Event Type Ibuprofen kidney failure Drug Allergy Problems Problem Type Condition ICD-9 Code Onset Dates Condition Status Assessment Hypertension, benign 401.1 Active Problem Mixed hyperlipidemia 272.2 Active Assessment Mixed hyperlipidemia 272.2 Active Assessment Atherosclerosis of other specified arteries 440.8 Active Assessment Diabetes Mellitus Type 2, not [...] Instructions Start Date End Date Status Dosage NovoLog Flexpen [facility] [address]-67 100 UNIT/ML Subcutaneous three times a day May 27, 2013 14 units with breakfast and lunch and 23 units with supper Lisinopril [facility] [address]-84 10 MG Orally Once a day 1 tablet MSM [facility] [address] 1500 MG Orally 2 in am, 1 hs as directed Tylenol Extra Strength [facility] [address]-45 500 MG Orally every 6 hrs 1 tablet as needed Aspirin [facility] [address]-80 325 MG Orally Once a day 1 tablet Multivitamins [facility] [address]-46 Orally as directed Vitamin C [facility] [address] 500 MG Orally as directed Amlodipine Besylate [facility] [address]-12 5 MG Orally Twice a day 1/2 tablet Fish Oil [facility] [address]-95 1000 MG Orally Once a day 1 capsule Levemir Flexpen [facility] [address]-12 100 UNIT/ML Subcutaneous at bedtime May 27, 2013 35 units at bedtime daily Simvastatin [facility] [address]-02 40 MG Orally Once a day 1 tablet in the evening Procedures Procedure Coding System Code Date OFFICE VISIT, EST-LOW COMPLEXITY (15 MIN.) CPT-4 25189 September 12, 2014 HEMOGLOBIN A1C, IN HOUSE CPT-4 47787 September 12, 2014 Vital Signs Date/Time: September 12, 2014 Height 65 in Weight 267 lbs Temperature 97.8 F Blood Pressure Diastolic 64 mm Hg Blood Pressure Systolic 107 mm Hg Cardiac Monitoring Heart Rate 81 /min BMI 44.43 Index Respiratory Rate 16 /min Results Name Result Date Reference Range Unit Abnormality Flag In House HB A1c Summary Purpose eClinicalWorks Submission
--- OUTSIDE RECORDS SUMMARY | 2016-07-09 17:12 | XMS REPORT ---
Author Shanta Braswell e[employer] Address Unknown Phone Unavailable Care Team Providers Care Molder Hand Name Role Phone Shanta Wang CP Unavailable Allergies, Adverse Reactions, Alerts Substance Reaction Event Type Ibuprofen kidney failure Drug Allergy Problems Problem Type Condition Code Onset Dates Condition Status Assessment Hypertension, benign 401.1 Active Problem Mixed hyperlipidemia 272.2 Active Assessment Diabetes [...] joint, pelvic region and thigh 719.45 Active Assessment Morbid obesity 278.01 Active Assessment Atherosclerosis of other specified arteries 440.8 Active Assessment Pain in joint, multiple sites 719.49 Active Assessment Mixed hyperlipidemia 272.2 Active Medications Medication Code System Code Instructions Start Date End Date Status Dosage Fish Oil [facility] [address]-15 1000 MG Orally Once a day 1 capsule Levemir Flexpen [facility] [address]-96 100 UNIT/ML Subcutaneous at bedtime May 27, 2013 33 units at bedtime daily Lisinopril [facility] [address]-87 10 MG Orally Once a day 1 tablet Vitamin C [facility] 35903-[address]90 500 MG Orally as directed Simvastatin [facility] [address]-28 40 MG Orally Once a day 1 tablet in the evening Multivitamins [facility] [address]-34 Orally as directed MSM [facility] [address]31[address] 1500 MG Orally 2 in am, 1 hs as directed Tylenol Extra Strength [facility] [address]-64 500 MG Orally every 6 hrs 1 tablet as needed NovoLog Flexpen [facility] [address]-68 100 UNIT/ML Subcutaneous three times a day May 27, 2013 12 units with breakfast and lunch and 23 units with supper Aspirin [facility] [address]-25 325 MG Orally Once a day 1 tablet Procedures Procedure Coding System Code Date OFFICE VISIT, EST-LOW COMPLEXITY (15 MIN.) CPT-4 25247 June 08, 2014 [facility] MicroAlb/Creat Ratio, Urine CPT-4 23725 June 08, 2014 HEMOGLOBIN A1C, IN HOUSE CPT-4 52236 June 08, 2014 URINALYSIS, IN HOUSE CPT-4 60872 June 08, 2014 [facility] MicroAlb/Creat Ratio, Urine CPT-4 83285 June 08, 2014 [facility] RENAL FUNCTION PANEL CPT-4 88301 June 08, 2014 LIPID PANEL CPT-4 23406 June 08, 2014 Vital Signs Date/Time: June 08, 2014 Height 65 in Weight 266.0 lbs Temperature 97.6 F Blood Pressure Diastolic 78 mm Hg Blood Pressure Systolic 114 mm Hg Cardiac Monitoring Heart Rate 85 /min BMI 44.26 Index Respiratory Rate 16 /min Results No Known Results Summary Purpose eClinicalWorks Submission
--- OUTSIDE RECORDS SUMMARY | 2016-07-09 17:12 | XMS REPORT ---
Author Abram Bear Organization [employer] Address Unknown Phone Unavailable Care Team Providers Care Radio Interference Expert Name Role Phone Abram Sutton CP Unavailable Allergies, Adverse Reactions, Alerts Substance Reaction Event Type Ibuprofen kidney failure Drug Allergy Problems Problem Type Condition Code Onset Dates Condition Status Problem Diabetes Mellitus Type 2, not stated as uncontrolled 250.00 Active Assessment Osteoarthritis of knee, unspecified M17.9 Active Problem Unspecified hearing loss 389.9 Active Assessment Osteoarthritis of hip, unspecified M16.9 Active Problem Morbid obesity 278.01 Active Problem Atherosclerosis of other arteries I70.8 Active Problem Atherosclerosis of other specified arteries 440.8 Active Problem Pain in right knee M25.561 Active Problem Atherosclerotic heart disease of [place] coronary artery without angina pectoris I25.10 Active Assessment Pain in right hip M25.551 Active Assessment Pain in right knee M25.561 Active Problem Postprocedural hypertension I97.3 Active Assessment Encounter for screening mammogram for malignant neoplasm of breast Z12.31 Active Problem Type 2 diabetes mellitus without complications E11.9 Active Problem Morbid (severe) obesity due to excess calories E66.01 Active Problem Essential (primary) hypertension I10 Active Problem Mixed hyperlipidemia E78.2 Active Assessment Postprocedural hypertension I97.3 Active Assessment Type 2 diabetes mellitus without complications E11.9 Active Assessment Atherosclerosis of [place] arteries of extremities with intermittent claudication, bilateral legs I70.213 Active Assessment Hyperlipidemia, mixed E78.2 Active Problem 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 Active Problem Pain in joint, pelvic region and thigh 719.45 Active Problem Mixed hyperlipidemia 272.2 Active Problem Hypertension, benign 401.1 Active Medications Medication Code System Code Instructions Start Date End Date Status Dosage MSM [facility] [address] 1500 MG Orally 2 in am, 1 hs as directed Multivitamins [facility] [address]-03 Orally as directed Metformin HCl [facility] [address]-32 500 MG Orally Twice a day Mar 23, 2015 1 tablet with meals Chlorthalidone [facility] [address]-96 25 MG Orally Once a day 1 tablet in the morning Vitamin C [facility] [address] 500 MG Orally as directed Simvastatin [facility] [address]-26 40 MG Orally Once a day 1 tablet in the evening Lisinopril [facility] [address]-39 10 MG Orally Once a day [address] [facility] [address]-89 25 MG Orally Twice a day 1/ [address] [facility] [address]-25 1000 MG Orally Once a day [address] [facility] [address]-62 100 UNIT/ML Subcutaneous three times a day May 27, 2013 14 units with breakfast and lunch and 25 units with supper OneTouch Ultra 2 [facility] [address]-30 w/Device Dx E11.9 qid. Include strips, glucometer June 12, 2015 as directed Tylenol Extra Strength [facility] [address]-05 500 MG Orally every 6 hrs 1 tablet as needed Aspirin [facility] [address]-81 325 MG Orally Once a day [address] [facility] 1445[address]-73 100 units/mL Subcutaneous Once a day Feb 13, 2015 36 units at bedtime Procedures Procedure Coding System Code Date OFFICE VISIT, EST-LOW COMPLEXITY (15 MIN.) CPT-4 99581 September 12, 2015 Vital Signs Date/Time: September 12, 2015 Temperature 97.0 F Height 65 in Weight 283.4 lbs Blood Pressure Diastolic 72 mm Hg Blood Pressure Systolic 126 mm Hg Cardiac Monitoring Heart Rate 72 /min BMI 47.16 Index Oximetry 92 % Respiratory Rate 22 /min Results No Known Results Summary Purpose eClinicalWorks Submission
--- OUTSIDE RECORDS SUMMARY | 2016-07-09 17:12 | XMS REPORT ---
Author Author Shanta Wang [facility] eClinicalWorks Address Unknown Phone Unavailable Care Team Providers Care Embroidery Supervisor Name Role Phone Shanta Wang CP [...] Instructions Start Date End Date Status Dosage OneTouch Ultra 2 [facility] [address]-88 w/Device Dx E11.9 qid. Include strips, glucometer June 12, 2015 as directed Results No Known Results Summary Purpose eClinicalWorks Submission
--- OUTSIDE RECORDS SUMMARY | 2016-07-09 17:12 | XMS REPORT ---
Author Author Shanta Wang Organization [employer] Address Unknown Phone Unavailable Care Team Providers Care Corporate Sales Manager Name Role Phone Shanta Wang CP Unavailable Allergies No Known Allergies Problems Problem Type Condition Code Onset Dates Condition Status Problem Morbid obesity 278.01 Active Problem Atherosclerosis of other arteries I70.8 Active Problem Atherosclerosis of other specified arteries 440.8 Active Problem Pain in right knee M25.561 Active Problem Atherosclerotic heart disease of [place] coronary artery without angina pectoris I25.10 Active [...]
--- OUTSIDE RECORDS SUMMARY | 2016-07-09 17:12 | XMS REPORT ---
Author Author Shanta Wang Organization [employer] Address Unknown Phone Unavailable Care Team Providers Care Metallurgist Helper Name Role Phone Shanta Wang CP Unavailable [...]
--- OUTSIDE RECORDS SUMMARY | 2016-07-09 17:12 | XMS REPORT ---
Author Author Shanta Wang [facility] eClinicalWorks Address Unknown Phone Unavailable Care Team Providers Care Field Examiner Name Role Phone Shanta Wang CP Unavailable Allergies No Known Allergies Problems Problem Type Condition ICD-9 Code Onset Dates Condition Status Assessment Mixed hyperlipidemia 272.2 Active Problem Mixed hyperlipidemia 272.2 Active Assessment Hypertension, benign 401.1 Active Problem Morbid obesity 278.01 Active Problem [...] Instructions Start Date End Date Status Dosage Lisinopril [facility] [address]-92 10 MG Orally Once a day 1 tablet Simvastatin [facility] [address]-62 40 MG Orally Once a day 1 tablet in the evening Results No Known Results Summary Purpose eClinicalWorks Submission
--- OUTSIDE RECORDS SUMMARY | 2016-07-09 17:12 | XMS REPORT ---
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 Problem Postprocedural hypertension I97.3 Active 15845606 Problem Essential (primary) hypertension I10 Active 74707675 Problem Mixed hyperlipidemia E78.2 Active 065260254 Problem Pain in right knee M25.561 Active 565021375609277 Problem Atherosclerotic heart disease of [place] coronary artery without angina pectoris I25.10 Active 295827195944126 Problem Mixed hyperlipidemia 272.2 Active 453659676 Problem Hypertension, benign 401.1 Active 31000471 Assessment Hematuria, unspecified R31.9 13 Jan, 2016 Active 14275153 Problem Diabetes Mellitus Type 2, not stated as uncontrolled 250.00 Active 929004502 Problem Unspecified hearing loss 389.9 Active 78063306 Problem 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 Active 42458149 Problem Morbid obesity 278.01 Active 341049294 Problem Pain in joint, pelvic region and thigh 719.45 Active 357329431 Problem Atherosclerosis of other specified arteries 440.8 Active 70090986 ALLERGIES Unknown Allergies SOCIAL HISTORY No smoking Hx information available PLAN OF CARE Activity Details Pending Test Urine Culture ,Reason: VITAL SIGNS MEDICATIONS Medication Instructions Dosage Frequency Start Date End Date Duration Status Tylenol Extra Strength 500 MG Orally every 6 hrs 1 tablet as needed 6h Active Metoprolol Tartrate 25 MG Orally Twice a day 1/2 tablet 12h Active Vitamin C 500 MG as directed Active MSM 1500 MG Orally 2 in am, 1 hs as directed Active Fish Oil 1000 MG Orally Once a day 1 capsule 24h Active Lisinopril 10 MG Orally Once a day 1 tablet 24h 90 days Active Pushing InnovationTouch Ultra 2 w/Device Dx E11.9 qid. Include strips, glucometer as directed May, 90 days Active Aspirin 325 MG Orally Once a day 1 tablet 24h 30 day(s) Active Chlorthalidone 25 MG Orally Once a day 1 tablet in the morning 24h Active Levemir FlexTouch 100 units/mL Subcutaneous Once a day 36 units at bedtime 24h Jan, Active Metformin HCl 500 MG Orally Twice a day 1 tablet with meals 12h Feb, 30 day(s) Active Multivitamins as directed Active NovoLog Flexpen 100 UNIT/ML Subcutaneous three times a day 14 units with breakfast and lunch and 25 units with supper 8h May, Active Simvastatin 40 MG Orally Once a day 1 tablet in the evening 24h 90 days Active RESULTS Name Result Date Reference Range Urine Culture 2016-02-05 Urine Culture Source: Urine Collected: 02/05/16 15:32 PROCEDURES Procedure Date Ordered Related Diagnosis Body Site URINE CULTURE Feb 05, 2016 IMMUNIZATIONS No Known Immunizations
--- OUTSIDE RECORDS SUMMARY | 2016-07-09 17:12 | XMS REPORT ---
Author Author Shanta Wang [facility] eClinicalWorks Address Unknown Phone Unavailable Care Team Providers Care Tour Sales Representative Name Role Phone Shanta Wang Unavailable Allergies No Known Allergies Problems Problem Type Condition ICD-9 Code Onset Dates Condition Status Problem Unspecified hearing loss 389.9 Active Problem Diabetes Mellitus Type 2, not stated as uncontrolled 250.00 Active Problem Morbid obesity 278.01 Active Problem Hypertension, benign 401.1 Active Problem Mixed hyperlipidemia 272.2 Active Problem Pain in joint, pelvic region and thigh 719.45 Active Problem 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 Active Medications Medication Code System Code Instructions Start Date End Date Status Dosage NovoLog Flexpen [facility] [address]-54 100 UNIT/ML Subcutaneous three times a day May 27, 2013 12 units with breakfast and lunch and 23 units with supper Results No Known Results Summary Purpose eClinicalWorks Submission
--- OUTSIDE RECORDS SUMMARY | 2016-07-09 17:13 | XMS REPORT ---
Author Author Abram Sutton Organization [employer] Address Unknown Phone Unavailable Care Team Providers Care Design Printing Machine Set Up Operator Name Role Phone Abram Sutton CP Unavailable Allergies No Known Allergies Problems Problem Type Condition Code Onset Dates Condition Status Problem Morbid obesity 278.01 Active Problem Atherosclerosis of other arteries I70.8 Active Problem Atherosclerosis of other specified arteries 440.8 Active Problem Pain in right knee M25.561 Active Problem Atherosclerotic heart disease of [place] coronary artery without angina pectoris I25.10 Active [...] Date End Date Status Dosage Metformin HCl [facility] [address]-39 500 MG Orally Twice a day Mar 23, 2015 1 tablet with meals Results No Known Results Summary Purpose eClinicalWorks Submission
--- OUTSIDE RECORDS SUMMARY | 2016-07-09 17:13 | XMS REPORT ---
Author Author Shanta Wang [facility] eClinicalWorks Address Unknown Phone Unavailable Care Team Providers Care Radial Arm Saw Operator Name Role Phone Shanta Wang CP [...] Instructions Start Date End Date Status Dosage Simvastatin [facility] [address]-87 40 MG Orally Once a day 1 tablet in the evening Lisinopril [facility] [address]-16 10 MG Orally Once a day 1 tablet Results No Known Results Summary Purpose eClinicalWorks Submission
--- OUTSIDE RECORDS SUMMARY | 2016-07-09 17:13 | XMS REPORT ---
Author Author Shanta Wang [facility] eClinicalWorks Address Unknown Phone Unavailable Care Team Providers Care Podiatry Teacher Name Role Phone Shanta Wang CP Unavailable [...] Date End Date Status Dosage NovoLog Flexpen [facility] [address]-84 100 UNIT/ML Subcutaneous three times a day May 27, 2013 12 units with breakfast and lunch and 23 units with supper Results No Known Results Summary Purpose eClinicalWorks Submission
--- OUTSIDE RECORDS SUMMARY | 2016-07-09 17:13 | XMS REPORT ---
Author Abram Bear Organization [employer]ClinicalWorks Address Unknown Phone Unavailable Care Team Providers Care Mill Order Scheduler Name Role Phone Abram Sutton CP Unavailable Allergies, Adverse Reactions, Alerts Substance Reaction Event Type Ibuprofen kidney failure Drug Allergy Problems Problem Type Condition Code Onset Dates Condition Status Problem Unspecified hearing loss 389.9 Active Assessment Polyp of colon K63.5 Active Problem Morbid obesity 278.01 Active Assessment Encounter for screening mammogram for malignant neoplasm of breast Z12.31 Active Problem Atherosclerosis of other specified arteries 440.8 Active Problem Morbid (severe) obesity due to excess calories E66.01 Active Problem Atherosclerosis of other arteries I70.8 Active Problem Postprocedural hypertension I97.3 Active Problem Pain in right knee M25.561 Active Assessment Atherosclerotic heart disease of [place] coronary artery without angina pectoris I25.10 Active Assessment Hematuria, unspecified R31.9 Active Problem 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 Assessment Encounter for immunization Z23 Active Problem Mixed hyperlipidemia E78.2 Active Problem Type 2 diabetes mellitus without complications E11.9 Active Problem Atherosclerotic heart disease of [place] coronary artery without angina pectoris I25.10 Active Problem Essential (primary) hypertension I10 Active Assessment Type 2 diabetes mellitus without complications E11.9 Active Problem Mixed hyperlipidemia 272.2 Active Assessment 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 Assessment Essential (primary) hypertension I10 Active Problem Pain in joint, pelvic region and thigh 719.45 Active Problem Diabetes Mellitus Type 2, not stated as uncontrolled 250.00 Active Problem Hypertension, benign 401.1 Active Problem 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 Active Medications Medication Code System Code Instructions Start Date End Date Status Dosage Lisinopril [facility] [address]-17 10 MG Orally Once a day 1 tablet Metoprolol Tartrate [facility] [address]-42 25 MG Orally Twice a day 1/ 2 tablet Aspirin [facility] [address]-29 325 MG Orally Once a day 1 tablet Fish Oil [facility] [address]-09 1000 MG Orally Once a day 1 capsule Simvastatin [facility] [address]-35 40 MG Orally Once a day 1 tablet in the evening Levemir FlexTouch [facility] [address]86[address]-73 100 units/mL Subcutaneous Once a day Feb 13, 2015 36 units at bedtime NovoLog Flexpen [facility] [address]-41 100 UNIT/ML Subcutaneous three times a day May 27, 2013 14 units with breakfast and lunch and 25 units with supper Tylenol Extra Strength [facility] [address]-11 500 MG Orally every 6 hrs 1 tablet as needed MSM [facility] [address] 1500 MG Orally 2 in am, 1 hs as directed Multivitamins [facility] [address]-61 Orally as directed Chlorthalidone [facility] [address]-83 25 MG Orally Once a day 1 tablet in the morning OneTouch Ultra 2 [facility] [address]-61 w/Device Dx E11.9 qid. Include strips, glucometer June 12, 2015 as directed Metformin HCl [facility] [address]-44 500 MG Orally Twice a day Mar 23, 2015 1 tablet with meals Vitamin C [facility] [address] 500 MG Orally as directed Procedures Procedure Coding System Code Date OFFICE VISIT, EST-LOW COMPLEXITY (15 MIN.) CPT-4 03300 Dec 26, 2015 Fluzone/Fluarix IIV4 Pfree (age 3yr & older) CPT-4 91038 Dec 26, 2015 HEMOGLOBIN A1C, IN HOUSE CPT-4 22384 Dec 26, 2015 ADMINISTRATION, 1ST IMMUNIZATION CPT-4 77550 Dec 26, 2015 Vital Signs Date/Time: Dec 26, 2015 Temperature 97.0 F Height 65 in Weight 273.8 lbs Blood Pressure Diastolic 76 mm Hg Blood Pressure Systolic 120 mm Hg Cardiac Monitoring Heart Rate 68 /min BMI 45.56 Index Oximetry 98 % Respiratory Rate 18 /min Results Name Result Date Reference Range Unit Abnormality Flag In House HB A1c ----Hemoglobin A1c 6.9 [id number] Immunizations Vaccine Administration Date Fluzone/Fluarix IIV4 Pfree (age 3yr & older) Dec 26, 2015 Summary Purpose eClinicalWorks Submission
--- OUTSIDE RECORDS SUMMARY | 2016-07-09 17:13 | XMS REPORT ---
Author Author Annie Moreno [facility] eClinicalWorks Address Unknown Phone Unavailable Care Team Providers Care Exhibit Cleaner Name Role Phone Annie Moreno CP Unavailable Allergies, Adverse Reactions, Alerts Substance Reaction Event Type Ibuprofen kidney failure Drug Allergy Problems Problem Type Condition Code Onset Dates Condition Status Problem Morbid obesity 278.01 Active Problem Atherosclerosis of other arteries I70.8 Active Problem Atherosclerosis of other specified arteries 440.8 Active Problem Pain in right knee M25.561 Active Problem Atherosclerotic heart disease of [place] coronary artery without angina pectoris I25.10 Active Problem Postprocedural hypertension I97.3 Active Problem Type 2 diabetes mellitus without complications E11.9 Active Problem Morbid (severe) obesity due to excess calories E66.01 Active Problem Essential (primary) hypertension I10 Active Problem Mixed hyperlipidemia E78.2 Active Assessment Atherosclerotic heart disease of [place] coronary artery without angina pectoris I25.10 Active Assessment Type 2 diabetes mellitus without complications E11.9 Active Assessment Corns and callosities L84 Active Assessment Tinea unguium B35.1 Active Problem 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 Active Problem Pain in joint, pelvic region and thigh 719.45 Active Problem Mixed hyperlipidemia 272.2 Active Problem Diabetes Mellitus Type 2, not stated as uncontrolled 250.00 Active Problem Hypertension, benign 401.1 Active Problem Unspecified hearing loss 389.9 Active Medications Medication Code System Code Instructions Start Date End Date Status Dosage Lisinopril [facility] [address]-26 10 MG Orally Once a day 1 tablet NovoLog Flexpen [facility] [address]-78 100 UNIT/ML Subcutaneous three times a day May 27, 2013 14 units with breakfast and lunch and 25 units with supper MSM [facility] [address] 1500 MG Orally 2 in am, 1 hs as directed Vitamin C [facility] [address] 500 MG Orally as directed Levemir FlexTouch [facility] [address]01[address]-50 100 units/mL Subcutaneous Once a day Feb 13, 2015 36 units at bedtime Fish Oil [facility] [address]-60 1000 MG Orally Once a day 1 capsule Tylenol Extra Strength [facility] [address]-68 500 MG Orally every 6 hrs 1 tablet as needed Metformin HCl [facility] [address]-30 500 MG Orally Twice a day Mar 23, 2015 1 tablet with meals Aspirin [facility] [address]-64 325 MG Orally Once a day 1 tablet Simvastatin [facility] [address]-92 40 MG Orally Once a day 1 tablet in the evening Multivitamins [facility] [address]-03 Orally as directed Metoprolol Tartrate [facility] [address]-63 25 MG Orally Twice a day 1/ 2 tablet Chlorthalidone [facility] [address]-04 25 MG Orally Once a day 1 tablet in the morning OneTo[place] Ultra 2 [facility] [address]-67 w/Device Dx E11.9 qid. Include strips, glucometer June 12, 2015 as directed Procedures Procedure Coding System Code Date OFFICE VISIT, EST-LOW COMPLEXITY (15 MIN.) CPT-4 80651 Oct 22, 2015 REDUCTION OF CALLOUS, 1-4 CPT-4 78254 Oct 22, 2015 Vital Signs Date/Time: Oct 22, 2015 Temperature 97.4 F Height 65 in Weight 278.5 lbs Blood Pressure Diastolic 80 mm Hg Blood Pressure Systolic 132 mm Hg Cardiac Monitoring Heart Rate 74 /min BMI 46.34 Index Oximetry 94 % Respiratory Rate 20 /min Results No Known Results Summary Purpose eClinicalWorks Submission
--- OUTSIDE RECORDS SUMMARY | 2016-07-09 17:13 | XMS REPORT ---
Author Author Shanta Wang [facility] eClinicalWorks Address Unknown Phone Unavailable Care Team Providers Care Electric Shovel Operator Name Role Phone Shanta Wang Unavailable Allergies No Known Allergies Problems Problem Type Condition ICD-9 Code Onset Dates Condition Status Assessment Other abnormal blood chemistry 790.6 Active Problem Unspecified hearing loss 389.9 Active Problem Diabetes Mellitus Type 2, not stated as uncontrolled 250.00 Active Problem Morbid obesity 278.01 Active Problem Hypertension, benign 401.1 Active Problem Mixed hyperlipidemia 272.2 Active Problem Pain in joint, pelvic region and thigh 719.45 Active Problem 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 Active Medications Medication Code System Code Instructions Start Date End Date Status Dosage Multivitamins [facility] [address] Orally as directed MSM [facility] [address] 1500 MG Orally 2 in am, 1 hs as directed Lisinopril [facility] [address]-16 10 MG Orally Once a day 1 tablet Levemir Flexpen [facility] [address]-73 100 UNIT/ML Subcutaneous at bedtime May 27, 2013 33 units at bedtime daily Vitamin C [facility] [address] 500 MG Orally as directed Tylenol Extra Strength [facility] [address]-02 500 MG Orally every 6 hrs 1 tablet as needed Simvastatin [facility] [address]-53 40 MG Orally Once a day 1 tablet in the evening NovoLog Flexpen [facility] [address]-02 100 UNIT/ML Subcutaneous three times a day May 27, 2013 12 units with breakfast and lunch and 23 units with supper Fish Oil [facility] [address]-30 1000 MG Orally Once a day 1 capsule Aspirin [facility] [address]-35 325 MG Orally Once a day 1 tablet Procedures Procedure Coding System Code Date COMPLETE CBC W/AUTO DIFF WBC CPT-4 13236 Mar 27, 2014 Vital Signs Date/Time: Mar 09, 2014 Height 65 inches Weight 280.8 lbs Temperature 97.6 F Blood Pressure Diastolic 86 mm Hg Blood Pressure Systolic 126 mm Hg Cardiac Monitoring Heart Rate 92 Beats per Minute BMI 46.72 Index Respiratory Rate 18 per Minute Results No Known Results Summary Purpose eClinicalWorks Submission
--- OUTSIDE RECORDS SUMMARY | 2016-07-09 17:13 | XMS REPORT ---
Author Author Shanta Wang [facility] eClinicalWorks Address Unknown Phone Unavailable Care Team Providers Care Laborer Carpentry Dock Name Role Phone Shanta Wang CP Unavailable [...] Start Date End Date Status Dosage Levemir FlexTouch [facility] 4531-5661-32 100 units/mL Subcutaneous Once a day Feb 13, 2015 35 units at bedtime Results No Known Results Summary Purpose eClinicalWorks Submission
--- OUTSIDE RECORDS SUMMARY | 2016-07-09 17:13 | XMS REPORT ---
Author Author Annie Moreno [facility] eClinicalWorks Address Unknown Phone Unavailable Care Team Providers Care Sock Drier Name Role Phone Annie Moreno CP Unavailable Allergies, Adverse Reactions, Alerts Substance Reaction Event Type Ibuprofen kidney failure Drug Allergy Problems Problem Type Condition Code Onset Dates Condition Status Problem Morbid obesity 278.01 Active Problem Atherosclerosis of other arteries I70.8 Active Problem Atherosclerosis of other specified arteries 440.8 Active Problem Pain in right knee M25.561 Active Problem Atherosclerotic heart disease of [place] coronary artery without angina pectoris I25.10 Active Problem Postprocedural hypertension I97.3 Active Problem Type 2 diabetes mellitus without complications E11.9 Active Problem Morbid (severe) obesity due to excess calories E66.01 Active Problem Essential (primary) hypertension I10 Active Problem Mixed hyperlipidemia E78.2 Active Assessment Tinea unguium B35.1 Active Assessment Type 2 diabetes mellitus without complications E11.9 Active Assessment Corns and callosities L84 Active Problem 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 Active Problem Pain in joint, pelvic region and thigh 719.45 Active Problem Mixed hyperlipidemia 272.2 Active Problem Diabetes Mellitus Type 2, not stated as uncontrolled 250.00 Active Problem Hypertension, benign 401.1 Active Problem Unspecified hearing loss 389.9 Active Medications Medication Code System Code Instructions Start Date End Date Status Dosage Simvastatin [facility] [address]-07 40 MG Orally Once a day 1 tablet in the evening Metoprolol Tartrate [facility] [address]-42 25 MG Orally Twice a day 1/ 2 tablet Tylenol Extra Strength [facility] [address]-02 500 MG Orally every 6 hrs 1 tablet as needed Levemir FlexTouch [facility] 1108-0205-76 100 units/mL Subcutaneous Once a day Feb 13, 2015 36 units at bedtime Lisinopril [facility] [address]-47 10 MG Orally Once a day 1 tablet NovoLog Flexpen [facility] [address]-87 100 UNIT/ML Subcutaneous three times a day May 27, 2013 14 units with breakfast and lunch and 25 units with supper Fish Oil [facility] [address]-16 1000 MG Orally Once a day 1 capsule Multivitamins [facility] [address]-12 Orally as directed Vitamin C [facility] 30106-[address]44 500 MG Orally as directed MSM [facility] [address]39-[address]167 1500 MG Orally 2 in am, 1 hs as directed Chlorthalidone [facility] [address]-94 25 MG Orally Once a day 1 tablet in the morning Metformin HCl [facility] [address]-79 500 MG Orally Twice a day Mar 23, 2015 1 tablet with meals OneTouch Ultra 2 [facility] [address]-13 w/Device Dx E11.9 qid. Include strips, glucometer June 12, 2015 as directed Aspirin [facility] [address]-85 325 MG Orally Once a day 1 tablet Procedures Procedure Coding System Code Date OFFICE VISIT, EST-LOW COMPLEXITY (15 MIN.) CPT-4 17891 Dec 24, 2015 REDUCTION OF CALLOUS, 1-4 CPT-4 52894 Dec 24, 2015 Vital Signs Date/Time: Dec 24, 2015 Cardiac Monitoring Heart Rate 63 /min Temperature 97.3 F Height 65 in Oximetry 94 % Respiratory Rate 18 /min Blood Pressure Diastolic 68 mm Hg Blood Pressure Systolic 120 mm Hg Results No Known Results Summary Purpose eClinicalWorks Submission
--- OUTSIDE RECORDS SUMMARY | 2016-07-09 17:13 | XMS REPORT ---
Author Author Kay Ledesma [facility] eClinicalWorks Address Unknown Phone Unavailable Care Team Providers Care Infection Control Rn Name Role Phone Kay Ledesma CP Unavailable Allergies No Known Allergies Problems [...] status V45.81 Active Medications No Known Medications Vital Signs Date/Time: Dec 19, 2013 Height 65 inches Weight 279.1 lbs Temperature 97.5 F Blood Pressure Diastolic 82 mm Hg Blood Pressure Systolic 128 mm Hg Cardiac Monitoring Heart Rate 94 Beats per Minute BMI 46.44 Index Respiratory Rate 22 per Minute Results No Known Results Summary Purpose eClinicalWorks Submission
--- OUTSIDE RECORDS SUMMARY | 2016-07-09 17:13 | XMS REPORT ---
Author Author Shanta Wang Organization eClinicalWorks Address Unknown Phone Unavailable Care Team Providers Care Intranet Specialist Name Role Phone Shanta Wang CP Unavailable [...] Date End Date Status Dosage Levemir Flexpen [facility] [address]-35 100 UNIT/ML Subcutaneous at bedtime May 27, 2013 33 units at bedtime daily MSM [facility] [address] 1500 MG Orally 2 in am, 1 hs as directed Simvastatin [facility] [address]-46 40 MG Orally Once a day 1 tablet in the evening Aspirin [facility] [address]-86 325 MG Orally Once a day 1 tablet Tylenol Extra Strength [facility] [address]-50 500 MG Orally every 6 hrs 1 tablet as needed Multivitamins [facility] [address]-90 Orally as directed Lisinopril [facility] [address]-01 10 MG Orally Once a day 1 tablet Fish Oil [facility] [address]-38 1000 MG Orally Once a day 1 capsule NovoLog Flexpen [facility] [address]-69 100 UNIT/ML Subcutaneous three times a day May 27, 2013 12 units with breakfast and lunch and 23 units with supper Vitamin C [facility] [address]3420 500 MG Orally as directed Procedures Procedure Coding System Code Date COMPLETE CBC W/AUTO DIFF WBC CPT-4 37894 June 08, 2014 Results No Known Results Summary Purpose eClinicalWorks Submission
--- OUTSIDE RECORDS SUMMARY | 2016-07-09 17:13 | XMS REPORT ---
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 Active Medications Medication Code System Code Instructions Start Date End Date Status Dosage Anh Contour Test [facility] [address]-61 1 strip in meter QID June 05, 2015 1 strip Metformin HCl [facility] [address]-31 500 MG Orally Twice a day Mar 23, 2015 1 tablet with meals Metoprolol Tartrate [facility] [address]-45 25 MG Orally Twice a day 1/ 2 tablet Tylenol Extra Strength [facility] [address]-80 500 MG Orally every 6 hrs 1 tablet as needed Fish Oil [facility] [address]-58 1000 MG Orally Once a day 1 capsule Chlorthalidone [facility] [address]-13 25 MG Orally Once a day 1 tablet in the morning Levemir FlexTouch [facility] [address]-54 100 units/mL Subcutaneous Once a day Feb 13, 2015 36 units at bedtime Vitamin C [facility] 33[address]47 500 MG Orally as directed MSM [facility] 985[address]2338 1500 MG Orally 2 in am, 1 hs as directed Aspirin [facility] [address]-53 325 MG Orally Once a day 1 tablet NovoLog Flexpen [facility] [address]-30 100 UNIT/ML Subcutaneous three times a day May 27, 2013 14 units with breakfast and lunch and 25 units with supper Simvastatin [facility] [address]-79 40 MG Orally Once a day 1 tablet in the evening Lisinopril [facility] [address]-65 10 MG Orally Once a day 1 tablet Multivitamins [facility] [address]-33 Orally as directed Procedures Procedure Coding System Code Date OFFICE VISIT, EST-LOW COMPLEXITY (15 MIN.) CPT-4 46499 June 05, 2015 Vital Signs Date/Time: June 05, 2015 Temperature 97.4 F Height 65 in Weight 289.25 lbs Blood Pressure Diastolic 80 mm Hg Blood Pressure Systolic 120 mm Hg Cardiac Monitoring Heart Rate 93 /min BMI 48.13 Index Respiratory Rate 20 /min Results No Known Results Summary Purpose eClinicalWorks Submission
--- OUTSIDE RECORDS SUMMARY | 2016-07-09 17:13 | XMS REPORT ---
Author Author Kay Ledesma eClinicalWorks Address Unknown Phone Unavailable Care Team Providers Care Instrumentation Manager Name Role Phone Kay Ledesma CP Unavailable Allergies, Adverse Reactions, Alerts Substance Reaction Event Type Ibuprofen Info Not Available Drug Allergy Problems Problem Type Condition ICD-9 Code Onset Dates Condition Status Assessment Candidiasis of skin and nails 112.3 Active Assessment Routine gynecological examination V72.31 Active Assessment Colon cancer screening V76.51 Active Assessment Need for prophylactic vaccination and inoculation, Influenza V04.81 Active Problem Unspecified hearing loss 389.9 Active Problem Diabetes Mellitus Type 2, not stated as uncontrolled 250.00 Active Problem Morbid obesity 278.01 Active Problem Hypertension, benign 401.1 Active Problem Mixed hyperlipidemia 272.2 Active Problem Pain in joint, pelvic region and thigh 719.45 Active Problem 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 Active Medications Medication Code System Code Instructions Start Date End Date Status Dosage Multivitamins [facility] [address] Orally Active as directed Vitamin C [facility] 78[address] 500 MG Orally Active as directed Levemir Flexpen [facility] [address]-79 100 UNIT/ML Subcutaneous at bedtime May 27, 2013 Active 33 units at bedtime daily NovoLog Flexpen [facility] [address]-40 100 UNIT/ML Subcutaneous three times a day May 27, 2013 Active 12 units with breakfast and lunch and 23 units with supper Aspirin [facility] [address]-66 325 MG Orally Once a day Active 1 tablet Tylenol Extra Strength [facility] [address]-22 500 MG Orally every 6 hrs Active 1 tablet as needed Simvastatin [facility] [address]-89 40 MG Orally Once a day Active 1 tablet in the evening Fish Oil [facility] [address]-22 1000 MG Orally Once a day Active 1 capsule Lisinopril [facility] [address]-12 10 MG Orally Once a day Active 1 tablet Nystatin [facility] [address]-78 089322 UNIT/GM Externally Twice a day until rash has been gone for 2 days Dec 19, 2013 Jan 02, 2014 Active 1 application to affected area [facility] [address]60 1500 MG Orally Active as directed Procedures Procedure Coding System Code Date Preventive Care Est Pt. Age 40-64 CPT-4 35873 Dec 19, 2013 FLU VACCINE NO PRESERV 3 & > CPT-4 26857 Dec 19, 2013 SPECIMEN HANDLING FEE CPT-4 81386 Dec 19, 2013 ADMINISTRATION, 1ST IMMUNIZATION CPT-4 96867 Dec 19, 2013 Vital Signs Date/Time: Dec 19, 2013 Height 65 inches Weight 279.1 lbs Temperature 97.5 F Blood Pressure Diastolic 82 mm Hg Blood Pressure Systolic 128 mm Hg Cardiac Monitoring Heart Rate 94 Beats per Minute BMI 46.44 Index Respiratory Rate 22 per Minute Results Name Result Date Reference Range Unit Pap with HPV Immunizations Vaccine Administration Date Influenza shot 4 y.o. and older Dec 19, 2013 Summary Purpose eClinicalWorks Submission
--- OUTSIDE RECORDS SUMMARY | 2016-07-09 17:13 | XMS REPORT ---
Author Author Kay Ledesma eClinicalWorks Address Unknown Phone Unavailable Care Team Providers Care Natural Developer Name Role Phone Kay Ledesma CP Unavailable Allergies, Adverse Reactions, Alerts Substance Reaction Event Type Ibuprofen Info Not Available Drug Allergy Problems Problem Type Condition ICD-9 Code Onset Dates Condition Status Assessment Diabetes Mellitus Type 2, not stated as uncontrolled 250.00 Active Assessment Morbid obesity 278.01 Active Assessment Hypertension, benign 401.1 Active Assessment Unspecified hearing loss 389.9 Active Assessment Pain in joint, pelvic region and thigh [...] Start Date End Date Status Dosage Multivitamins [facility] 93[address] Orally Active as directed Aspirin [facility] [address]-41 325 MG Orally Once a day Active 1 tablet NovoLog Flexpen [facility] [address]-64 100 UNIT/ML Subcutaneous three times a day May 27, 2013 Active 12 units with breakfast and lunch and 23 units with supper Simvastatin [facility] [address]-91 40 MG Orally Once a day Active 1 tablet in the evening MSM [facility] [address] 1500 MG Orally Active as directed Vitamin C [facility] [address]4964 500 MG Orally Active as directed Lisinopril [facility] [address]-22 10 MG Orally Once a day Active 1 tablet Fish Oil [facility] [address]-46 1000 MG Orally Once a day Active 1 capsule Levemir Flexpen [facility] [address]-69 100 UNIT/ML Subcutaneous at bedtime May 27, 2013 Active 33 units at bedtime daily Tylenol Extra Strength [facility] [address]-57 500 MG Orally every 6 hrs Active 1 tablet as needed Procedures Procedure Coding System Code Date OFFICE VISIT, EST-MOD. COMPLEXITY (25 MIN) CPT-4 14585 Nov 30, 2013 Vital Signs Date/Time: Nov 30, 2013 Height 65 inches Weight 277.8 lbs Temperature 97.7 F Blood Pressure Diastolic 80 mm Hg Blood Pressure Systolic 118 mm Hg Cardiac Monitoring Heart Rate 100 Beats per Minute BMI 46.22 Index Respiratory Rate 26 per Minute Results No Known Results Summary Purpose eClinicalWorks Submission
[2016-07-09 17:15] VITALS: Ht 160 cm; Wt 125.0 kg
--- NOTE | 2016-07-09 17:34 | ERPDOC ---
Departure Disposition Decision Date: July 09, 2016 Disposition Decision Time: 19:14 Disposition: 01 DISCHARGED HOME, SELF-CARE Impression Impression Impression: Primary Impression: Cellulitis Site of cellulitis: extremity Site of cellulitis of extremity: lower extremity Laterality: left Qualified Codes: L03.116 - Cellulitis of left lower limb Severity: Moderate Condition: Stable Seen By: Mid-level only Referrals: David MELLO MD (PCP) DANI CALIX DO (Family) Patient Instructions: Cellulitis (ED) Problems/Meds/Labs Reviewed?: Yes Medications reviewed and manag: Yes Additional Instructions: You do not have have a blood clot in your left leg. Take the doxycycline that Dr. Calix prescribed for you as directed. Take the hydroxyzine that Dr. Calix prescribed for you for itching. Follow with Dr. Calix if not improving in the next 48-72 hours. Follow treatment plan. Follow up care ordered?: Yes Mental Status: Alert, Oriented HPI - Lower Extremity General Chief Complaint: Lower Extremity Pain Stated Complaint: POSS CLOT Time Seen by Provider: 17:26 Source: patient HPI - Lower Extremity Initial Comments 56-year-old female presents to ER with left lateral calf pain for approximately 1 week. Patient was sent in from PCPs office for ultrasound to rule out a DVT. Patient normally states she has swelling to the left thigh and leg since she had bypass surgery and they took the saphenous vein. States that she thinks her problem is multiple bed bug bites. [facility], says prescription was sent to pharmacy but she has not picked it up yet. Pain/Severity Scale: Now: 7/10 Pain/Injury Location: left leg Quality: burning Allergies: Coded Allergies: ibuprofen (Verified Allergy, Intermediate, KIDNEY FAILURE, 07/09/16) Past History Past Medical History Metabolic: diabetes, hypertension Cardiac: CAD Respiratory: DENIES: asthma GI: pancreatitis Female: renal failure, renal insufficiency Neurological: DENIES: seizures Musculoskeletal: osteoarthritis Psychological: DENIES: depression Surgical History Cardiac: cardiac bypass Reproductive/: , tubal ligation Family History Family PMH: FOUND: CAD, other (noncontributory) Vaccines Hx Influenza Vaccination: Yes (FALL 2014) Hx Pneumococcal Vaccination: No Social History Sexuality: male partner Review of Systems Constitutional Constitutional: DENIES: chills, dizziness, fever, weakness Eyes General: DENIES: erythema, exudate Lids/Accessories: DENIES: erythema, swelling ENMT Ears: DENIES: pain Sinuses: DENIES: congestion, rhinorrhea Mouth/Throat: DENIES: sore throat Cardiovascular Cardiac: DENIES: chest pain Pulmonary Respiratory: DENIES: cough, dyspnea GI Upper Abdomen: DENIES: nausea, pain, vomiting Lower Abdomen: DENIES: diarrhea, pain General: DENIES: dysuria, pain Musculoskeletal General: DENIES: joint pain, pain, tenderness Integumentary Skin: DENIES: color change, itching, rash Neurological General: DENIES: ataxia, change in strength, numbness, paralysis/paresis, weakness Psychiatric Psychiatric: DENIES: anxiety, depression, nervousness Physical Exam General General Nourishment: well nourished, well developed, no acute distress, adult, obese Vitals and Pain First Documented Vital Signs Date Time Temp Pulse Resp B/P Pulse Ox O2 Delivery O2 Flow Rate FiO2 07/09/16 17:15 97.9 104 24 144/66 97 Room Air Weight: Kilograms: Height (feet): 5 Height (inches): 4.00 Triage Pain Scale: Eyes (brief) Eyes Brief: found: EOMI ENMT (brief) ENMT Brief: NOT FOUND: nasal exudate, nasal swelling Neck (brief) Neck: FOUND: trachea midline Respiratory (brief) Respiratory: FOUND: clear all casarez, equal bilaterally, symmetrical Cardiovascular Auscultation: FOUND: S1, S2, rate (96), regular Peripheral Pulses : Peripheral Pulses Location: Dorsalis Pedis Pulses Strength: 2+ Edema : Edema Site: bilateral Edema Location: leg Edema Degree: 2+ Musculoskeletal Extremity : Side: Left Extremity: thigh, leg Comments Left leg and thigh are larger than right. Patient has TTP over left lateral calf where she has multiple excoriations with linear papules (see below). Integumentary General: FOUND: dry, warm Comments Patient has erythematous linear papules on face, trunk, upper and lower extremities. Papules are confluent on lower legs with large josephine of excoriated epidermis. Increased warmth to touch surround excoriated area on left leg. Neurologic (brief) Neurological Brief: FOUND: motor-no gross deficits, sensory-no gross deficits Psychiatric (brief) Psychiatric Brief: FOUND: alert, normal affect, oriented Differential Diagnoses Considering: Cellulitis, DVT, Sprain, Strain, Other (Bug bites) Progress Results/Orders Orders Procedure Category Date Status Time Us Venous Duplex, US 07/09/16 Resulted Lower Ext Lt Progress Progress I discussed US findings with patient. Patient was given Rx. for hydroxyzine and doxycycline by PCP. I discussed that antibiotic will treat infection and hydroxyzine is for the itching. Patient encouraged to avoid scratching. Patient verbalized understanding of treatment plan, follow up with PCP and return precautions. Ultrasound US : Ultrasound: Venous Doppler Interpretation: Normal (no DVT), Faxed Report BRUCE FONTANA SLIDE FASTENERS INSPECTOR July 09, 2016 17:34
--- NOTE | 2016-07-09 17:35 | NUR ---
RAJ WARD IN
--- NOTE | 2016-07-09 17:40 | NUR ---
REPORT TO GARY HARO
--- OUTSIDE RECORDS SUMMARY | 2016-07-09 17:51 | XMS REPORT | Continuity of Care Document ---
Author Author [facility] Organization [facility] Address Unknown Phone Unavailable Care Team Providers Care Scheduling Assistant Name Role Phone LEN RENE Primary Care Physician [phone] Insurance Providers Payer Name Policy Number Subscriber Name Relationship [facility] Community Plan [id number] Latisha Felder 16 Self Advance Directives Directive [...] Acid 1,000 Mg PO DAILY 11/10/11 Active [place]-3 Fatty Acids/Fish Oil 1,000 Mg PO DAILY 01/10/14 Active Gluc HCl/MSM/C/Mn/[place]/Ging 1 Tab PO TWICE A DAY 01/10/14 [...] F (96.8 - 99.1) Temperature (Calculated Celsius) 36.63406 degrees C (36.0 - 37.3) Pulse Rate [...] 26, 2012 9:09pm LAB TEST FORM REQUEST [id number] - HDL Cholesterol Direct January 21, 2012 [...] CALDERON MD REAGENT STRIP/BLOOD GLUCOSE completed 01/11/14 [id number]"RINGERS LACTATE INFUSION, UP TO 1000 CC" completed 01/11/14 Encounters Encounter Location Date/Time Departed Emergency Room [facility] 02/03/14 7:17pm Registered Clinic [facility] 12/28/13 9:22am Discharged Recurring [facility] 12/22/13 9:30am Registered Clinic [facility] 11/28/13 11:28am Recent Diagnosis
--- OUTSIDE RECORDS SUMMARY | 2016-07-09 17:51 | XMS REPORT | Continuity of Care Document ---
Author Author [facility] Organization [facility] Address Unknown Phone Unavailable Care Team Providers Care Rn Orthopaedic Name Role Phone LEN RENE Primary Care Physician [phone] Insurance Providers Payer Name Policy Number Subscriber Name Relationship [facility] Community Plan [id number] Latisha Felder 16 Self Advance Directives Directive [...] Acid 1,000 Mg PO DAILY 11/10/11 Active [place]-3 Fatty Acids/Fish Oil 1,000 Mg PO DAILY 01/10/14 Active Gluc HCl/MSM/C/Mn/[place]/Ging 1 Tab PO TWICE A DAY 01/10/14 [...] F (96.8 - 99.1) Temperature (Calculated Celsius) 36.16931 degrees C (36.0 - 37.3) Pulse Rate [...] 26, 2012 9:09pm LAB TEST FORM REQUEST [id number] - HDL Cholesterol Direct January 21, 2012 [...] CALDERON MD REAGENT STRIP/BLOOD GLUCOSE completed 01/11/14 [id number]"RINGERS LACTATE INFUSION, UP TO 1000 CC" completed 01/11/14 Encounters Encounter Location Date/Time Departed Emergency Room [facility] 02/03/14 7:17pm Registered Clinic [facility] 12/28/13 9:22am Registered [facility] 12/22/13 9:30am Registered Clinic [facility] 11/28/13 11:28am Recent Diagnosis
--- OUTSIDE RECORDS SUMMARY | 2016-07-09 17:51 | XMS REPORT | Continuity of Care Document ---
Author Author [facility] Organization [facility] Address Unknown Phone Unavailable Care Team Providers Care Warehouse Foreman Name Role Phone LEN RENE Primary Care Physician [phone] Insurance Providers Payer Name Policy Number Subscriber Name Relationship [facility] Community Plan [id number] Latisha Felder 16 Self Advance Directives Directive [...] Acid 1,000 Mg PO DAILY 11/10/11 Active [place]-3 Fatty Acids/Fish Oil 1,000 Mg PO DAILY 01/10/14 Active Gluc HCl/MSM/C/Mn/[place]/Ging 1 Tab PO TWICE A DAY 01/10/14 [...] F (96.8 - 99.1) Temperature (Calculated Celsius) 37.47739 degrees C (36.0 - 37.3) Temperature Source [...] 26, 2012 9:09pm LAB TEST FORM REQUEST [id number] - Lipase August 26, 2010 10:40am 75 [...] CALDERON MD Encounters Encounter Location Date/Time Registered [facility] 12/28/13 9:22am Registered [facility] 11/28/13 11:28am
[2016-07-09] MEDS ORDERED: [UNRECOGNIZED DRUG - CODE] PO (18:09)
[2016-07-09] MEDS ORDERED: METH500C8 PO (18:12)
[2016-07-09] MEDS ORDERED: INSU100I3 SQ ×2 (18:12)
[2016-07-09] MEDS ORDERED: HYDR25TA85 PO (18:14)
[2016-07-09] MEDS ORDERED: TRIA15CR4 TOP (18:16)
[2016-07-09] MEDS ORDERED: DOXY100T2 PO (18:16)
[2016-07-09] MEDS ORDERED: CHLO25TA2 PO (18:16)
[2016-07-09] MEDS ORDERED: ACET-2890 PO (18:22)
[2016-07-09] MEDS ORDERED: FISH1CAP2 PO (18:22)
[2016-07-09] MEDS ORDERED: ACET-62 PO (18:22)
[2016-07-09] MEDS ORDERED: METF500T4 PO (18:22)
[2016-07-09] MEDS ORDERED: METO25TA6 PO (18:22)
[2016-07-09 19:31] VITALS: BP 124/82; PULSE 102; RESP 24; TEMP 97.9; O2SAT 98
--- NOTE | 2016-07-10 08:38 | DI ---
Indication: ITS.REASON: swelling and pain in left calf PROCEDURE: US VENOUS DUPLEX, LOWER EXT LT: Encounter: Initial Comparison: August 15, 2015 Technique: Color Doppler duplex and grayscale sonographic imaging of the left lower extremity was performed. Findings: There is no evidence for acute deep venous thrombosis in the left thigh. Specifically, serial graded compression was performed from the inguinal ligament to the popliteal bifurcation, on the left thigh, demonstrating appropriate compressibility of the deep venous system. In addition, color and pulsed Doppler demonstrate appropriate spontaneous flow, variation with respiration, and augmentation with calf compression. At the ankle, normal flow is identified in the posterior tibial veins; these vessels are also normal in caliber. Impression: No evidence of acute DVT in the left lower limb. There is a preliminary report by [facility]. .
--- NOTE | 2016-07-10 14:20 | NUR ---
ED FOLLOW UP THIS WORKER RECEIVED CALL FROM [facility], CASE MANAGEMENT, LASHAWN. LASHAWN REPORTED THAT HE WILL BE FOLLOWING ON THE BED BUG ISSUE. Addendum: 07/10/16 at 1429 by PETER TAPIA Amended: Links added.
== END 2016-07-09 19:31 | disposition home or self-care (01) ==
LOC: ED 17:07
DX: L03.116 Cellulitis of left lower limb (principal)

== ENCOUNTER → 2016-07-09 | Outpatient (CLI) | payer MEDICAID ==
[~2016-07-09] MED LIST: ACET-2890 PO; ACET-62 PO; ASCO500T9 PO; ASPI-730 PO; CHLO25TA2 PO; DOXY100T2 PO; FISH1CAP2 PO; GLUC1TAB40 PO; HYDR25TA85 PO; INSU100C8 SQ; INSU100I3 SQ; INSU100I4 SQ; LISI10TA7 PO; METF500T4 PO; METH500C8 PO; METO25TA6 PO; MULT-806 PO; OMEG-34 PO; SIMV40TA82 PO; TRIA15CR4 TOP; [UNRECOGNIZED DRUG - CODE] PO
== END ==
LOC: LAB 14:53
PROVIDERS: ATTEND Internal Medicine
DX: R22.42 Localized swelling, mass and lump, left lower limb (principal)
CPT/HCPCS: 36415; 85379

== ENCOUNTER 2017-02-25 12:30 | Inpatient (IN) ==
--- OUTSIDE RECORDS SUMMARY | 2017-02-25 13:53 | External Medical Summary ---
:1960 Author Organization [employer] Care Team Providers Name Role Phone Shanta Wang Provider Role Unavailable Allergies No Known Allergies Problems Problem Type Condition Code Onset Dates Condition Status Problem Pain in joint, pelvic region and 719.45 Active thigh Problem Unspecified hearing loss 389.9 Active Problem Diabetes Mellitus Type 2, not stated 250.00 Active as uncontrolled Problem Mixed hyperlipidemia E78.2 Active Problem Type 2 diabetes mellitus without E11.9 Active complications Problem Essential (primary) hypertension I10 Active Problem Atherosclerosis of other specified 440.8 Active arteries Problem Morbid obesity 278.01 Active Problem Morbid (severe) obesity due to E66.01 Active excess calories Problem Atherosclerosis of other arteries I70.8 Active Assessment Type 2 diabetes mellitus without E11.9 Active complications Problem Mixed hyperlipidemia 272.2 Active Problem Hypertension, benign 401.1 Active Problem Postprocedural aortocoronary bypass V45.81 Active status Medications Medication Code System Code Instructions Start Date End Date Status Dosage Victoza [facility] [address] 18 MG/3ML Mar 05, July 09, 0.6mg for 1 0-12 Subcutaneous Once 20152015 then a day 1.2 mg for 1 week then 1.8 mg daily Results No Known Results Summary Purpose [employer] Submission
--- OUTSIDE RECORDS SUMMARY | 2017-02-25 13:53 | External Medical Summary ---
:1960 Author Organization [employer] Care Team Providers Name Role Phone Felipe, Shanta Provider Role Unavailable Allergies No Known Allergies [...] Postprocedural aortocoronary bypass V45.81 Active status Medications No Known Medications Results No Known Results Summary Purpose [employer] Submission
--- OUTSIDE RECORDS SUMMARY | 2017-02-25 13:53 | External Medical Summary ---
:1960 Author Organization [employer] Care Team Providers Name Role Phone Shanta Wang Provider Role Unavailable Allergies No Known Allergies Problems Problem Type Condition ICD-9 Code Onset Dates Condition Status Problem Mixed hyperlipidemia 272.2 Active Assessment Diabetes Mellitus Type 2, not 250.00 Active stated as uncontrolled Problem Morbid obesity 278.01 Active Problem Unspecified hearing loss 389.9 Active Problem Atherosclerosis of other 440.8 Active specified arteries Problem Postprocedural aortocoronary V45.81 Active bypass status Problem Hypertension, benign 401.1 Active Problem Diabetes Mellitus Type 2, not 250.00 Active stated as uncontrolled Problem Pain in joint, pelvic region and 719.45 Active thigh Medications Medication Code System Code Instructions Start End Date Status Dosage Date Levemir Flexpen [facility] 10901-48 100 UNIT/ML May 27, 33 units at 39-10 Subcutaneous at 2013 bedtime bedtime daily Results No Known Results Summary Purpose [employer] Submission
--- OUTSIDE RECORDS SUMMARY | 2017-02-25 13:53 | External Medical Summary ---
:1960 Author Organization [employer] Care Team Providers Name Role Phone Shanta Wang Provider Role Unavailable Allergies No Known Allergies Problems Problem Type Condition Code Onset Dates Condition Status Problem Morbid obesity 278.01 Active Problem Atherosclerosis of other arteries I70.8 Active Problem Atherosclerosis of other specified 440.8 Active arteries Problem Pain in right knee M25.561 Active Problem Atherosclerotic heart disease of I25.10 Active [place] coronary artery without angina pectoris Problem Postprocedural hypertension I97.3 Active Problem Type 2 diabetes mellitus without E11.9 Active complications Problem Morbid (severe) obesity due to E66.01 Active excess calories Problem Essential (primary) hypertension I10 Active Problem Mixed hyperlipidemia E78.2 Active Problem Postprocedural aortocoronary bypass V45.81 Active status Problem Pain in joint, pelvic region and 719.45 Active thigh Problem Mixed hyperlipidemia 272.2 Active Problem Diabetes Mellitus Type 2, not 250.00 Active stated as uncontrolled Problem Hypertension, benign 401.1 Active Problem Unspecified hearing loss 389.9 Active Medications No Known Medications Results No Known Results Summary Purpose [employer] Submission
--- OUTSIDE RECORDS SUMMARY | 2017-02-25 13:53 | External Medical Summary ---
:1960 Author Organization [employer] Care Team Providers Name Role Phone Felipe Shanta Provider Role Unavailable Allergies No Known Allergies Problems Problem Type Condition Code Onset Dates Condition Status Problem Mixed hyperlipidemia 272.2 Active Problem Morbid obesity 278.01 Active Problem Unspecified hearing loss 389.9 Active Problem Atherosclerosis of other specified 440.8 Active arteries Problem Postprocedural aortocoronary bypass V45.81 Active status Problem Hypertension, benign 401.1 Active Problem Diabetes Mellitus Type 2, not stated 250.00 Active as uncontrolled Problem Pain in joint, pelvic region and 719.45 Active thigh Medications No Known Medications Results No Known Results Summary Purpose [employer] Submission
--- OUTSIDE RECORDS SUMMARY | 2017-02-25 13:53 | External Medical Summary ---
[...] Problem Atherosclerotic heart disease of I25.10 Active [place] coronary artery without angina pectoris Problem Postprocedural [...] Medications Results No Known Results Summary Purpose [employer] Submission
[2017-02-25] MEDS: HYDROCODONE/APAP 5mg/325mg TABLET PO PRN (16:56)
[2017-02-25] MEDS ORDERED: GLUCOSE ORAL GEL 40% 37.5gm PO PRN (17:14)
[2017-02-25] MEDS ORDERED: DEXTROSE 50% SYRINGE 50ml (1 AMP) IVP PRN (17:14)
--- NOTE | 2017-02-25 17:23 | History & Physical Report ---
History of Present Illness Date: 02/25/17 Chief complaint: left lower extremity cellulitis refractory to outpatient therapy. HPI: patient is a pleasant 56yo female known to our clinic. she has a known history of chronic lower extremity venous insufficiency and stasis. her issues started about 2 to 3 weeks ago when he left lower extremity became more weepy and red as well as swollen and painful. right lower extremity generally remained unchanged. she was seen in clinic by one of our nurse practitioners and put on keflex and leg was cultured. this grew out MSSA. she hasn't noticed much improvement over that period of time and in fact she's noticed a bit of worsening. she doesn't feel systemically unwell. no new or changing numbness/weakness/tingling in legs bilaterally. no claudication or pseudoclaudication symptoms. no falls, trauma, injuries. she does admit to a great deal of sodium intake daily. she notes eating fox and eggs for breakfast daily and sometimes for another meal during the day. many of her other meals she notes come in the form of microwave meals. she denies fluctuance/pustulance from the lesions in left lower extremity. she has chronic osteoarthritis in her right hip but this isn't acutely worse in regards to pain. she denies inflammed or boggy joints. no fevers, chills, body aches, fatigue, weakness. he LLE and ankle are swollen but still movable and ROS negative for compartments syndrome there. patient's vitals have been stable. she is otherwise stable. patient was admitted to [facility] as she has failed outpatient antibiotics and now requires inpatient therapy. no headaches, stroke symptoms, focal neurologic deficits, ear pain, sinus pain, sore throat. no recent travel, camping, sick exposures, [place] exposures, outdoor exposures. no IV drug use. no vision changes, chest pain, SOA, orthopnea, PND, changes in exertional tolerance, cough, sputum production, hemoptysis, dizziness, syncope, near-syncope, unintentional weight loss, night sweats, appetite changes, constitutional symptoms, orthostatic symptoms, abdominal pain, GERD symptoms, nausea, vomiting, hematemesis, coffee ground emesis, melena, BRBPR, constipation, bloody/black stools, dysphagia, GI warning symptoms, diarrhea. no boggy or inflammed joints or muscle issues otherwise at this time other than noted above. no dysuria, hematuria, urinary frequency, flank pain, nocturia, urinary/bowel incontinance, urinary retention, mood changes, depression symptoms, changes in cognition, delerium symptoms. no other skin changes or new rashes other than noted above. no purpura, crepitus or other sympoms of necrotizing process. see above and below for other review of systems. Review of Systems - Constitutional Constitutional: Present: as per HPI - EENMT Eyes: Present: as per HPI Ears: Present: as per HPI Balance: Present: as per HPI Nose: Present: as per HPI Mouth/Throat: Present: as per HPI - Cardiovascular Cardiovascular: Present: as per HPI Vascular: Present: see HPI - Respiratory Respiratory: Present: as per HPI - Gastrointestinal Gastrointestinal: Present: as per HPI - Genitourinary Genitourinary: Present: as per HPI - Musculoskeletal Musculoskeletal: Present: as per HPI - Integumentary/Breasts Integumentary: Present: as per HPI - Neurological Neurological: Present: as per HPI - Psychiatric Psychiatric: Present: as per HPI - Endocrine Endocrine: Present: as per HPI - Hematologic/Lymphatic Hematologic/Lymphatic: Present: as per HPI - Allergic/Immunologic Allergic/Immunologic: Present: as per HPI (see above for allergies and ADR's. ) Past Medical History Patient Stated Medical History Cataracts Yes: start of Coronary Artery Disease Yes Hypertension Yes Myocardial Infarction Yes Diabetes Mellitus Type 2 Yes Hx Incontinence Yes Anemia Yes Osteoarthritis Yes Cellulitis Yes Clinic Medical History (Last Updated 02/03/17 @ 13:15 by Katina Esquivel) HTN Diabetes, Type II Osteoarthritis Venous insufficiency Obesity Surgical History: * Colonoscopy - 01/11/[address] Winkler at [facility] in [place], [place]. Endoscopy revealed 2 polyps 1 was mixed tubular adenoma/HP with minimal grandular dysplasia. 1 HP polyp. * CABG x 4 - [address] Simon Perrin in [place], [place]. * Sinus surgery - 2004 in [place], [place]. Family History: Family History (Last Updated 02/03/17 @ 14:12 by Katina Esquivel) Sister , at 60 Heart attack Brother HTN (hypertension) Mother Heart disease Type 2 diabetes mellitus Father Heart disease HTN (hypertension) High cholesterol Arthritis Daughter Type 2 diabetes mellitus Maternal Grandmother Breast cancer Family History Updates: see above. - Social History Smoking status: Never smoker Social history: -no tobacco use -no significant alcohol use -no illicit substance use -lives at home. Medications Home Medications Medication Instructions Recorded Confirmed Type Simvastatin 40 mg PO HS #0 08/26/10 02/25/17 History Aspirin 325 mg PO DAILY #0 11/10/11 History Multivitamins (Multivitamin) 1 tab PO DAILY #0 11/10/11 02/25/17 History Ascorbic Acid [Vitamin C] 500 mg PO DAILY #0 tab 10/16/15 02/25/17 History Acetaminophen 1,000 mg PO Q8H PRN #0 07/09/16 02/25/17 History Acetaminophen [Acetaminophen 8 650 mg PO BID PRN #0 07/09/16 02/25/17 History Hour] Chlorthalidone [Hygroton] 25 mg PO DAILY #0 07/09/16 02/25/17 History Insulin Aspart [Novolog Flexpen] 14 unit SQ BIDBL #0 07/09/16 02/25/17 History Insulin Aspart [Novolog Flexpen] 23 dose SQ WS #0 07/09/16 02/25/17 History Metformin HCl 500 mg PO BID #0 07/09/16 02/25/17 History Methylsulfonylmethane [MSM] 500 mg PO QAM #0 07/09/16 02/25/17 History Methylsulfonylmethane [MSM] 500 mg PO TID #0 07/09/16 02/25/17 History Metoprolol Tartrate 12.5 mg PO BID #0 07/09/16 02/25/17 History [place]-3 Fatty Acids/Fish Oil [Fish 1,000 mg PO DAILY #0 07/09/16 02/25/17 History Oil 1,000 mg Capsule] Insulin Detemir (Levemir) 36 u SQ HS #0 02/03/17 02/25/17 History lisinopril 10 mg tablet 20 mg PO DAILY #0 tab 02/03/17 History Allergies Allergy/AdvReac Type Severity Reaction Status Date / Time ibuprofen Allergy Intermediate KIDNEY Verified 02/03/17 13:28 FAILURE Exam Vital Signs: Pulse Rate 86 02/25/17 16:51 Respiratory Rate 16 02/25/17 16:51 Blood Pressure 122/65 02/25/17 14:01 Pulse Oximetry 98 02/25/17 16:51 Height/Weight/BMI: Height 1.6 m Weight 118.9 kg Body Mass Index 46.4 - Constitutional Present: no acute distress, morbidly obese, cooperative. Absent: thin, cachectic, diaphoretic, disheveled, combative, agitated, somnolent, obtunded - Routine HEENT Exam Head: Present: normocephalic, atraumatic ENT: Present: mucous membranes moist - Routine Neck Exam Present: supple, trachea midline. Absent: JVD, lymphadenopathy, thyromegaly, tenderness, tracheal deviation, trauma, meningismus Comments: no photophobia. no clinical evidence of meningitis at this time. - Routine Chest/Breast/Axilla Exam Comments: no chest wall tenderness. - Routine Respiratory Exam Present: CTA bilaterally. Absent: accessory muscle use, patient mechanically ventilated, dyspnea, decreased breath sounds, prolonged expiratory phase, rales , respiratory distress, rhonchi, stridor, wheezes, crackles, distant breath sounds, diminished air movement Comments: lung sounds heard in all lung casarez b/l at this time. all findings above bilateral unless otherwise noted. - Routine Cardiovascular Exam Present: RRR, no murmur. Absent: murmur, gallop, rubs, click, bradycardia, tachycardia, irregular rhythm, irregularly irregular, JVD Comments: no other stigmata or clinical evidence of heart failure at this time. left lower extremity examined. pulses normal and palpable throughout LLE at this time in all casarez. confluent erythema with small patches of skin noted extending up to about [address] up the lower leg. increased edema on that side. some scabbed over erosions and hyperkeratosis noted but nothing open at the moment. is is moderately tender to touch throughout this area but no more than would be expected. nicholsky sign negative. no purpura, crepitus. no clinical evidence of necrotizing process at this time. compartments of LLE more taut than usual but still soft overall and no clinical evidence of compartment syndrome there or in any other extremity at this time. no boggy or inflamed joints in extremities b/l X4. pulses otherwise normal as well in bilateral lower extremities. calibur of LLE is moderately larger than that of the right. right lower extremity with chronic changes as noted in progress notes from the clinic. right hip unchanged from usual baseline. otherwise no changes orthopedically from previous baseline. - Routine Abdominal Exam Present: soft (X4.), normoactive bowel sounds (X4.), non distended (X4.), non tender (X4.). Absent: tenderness (X4.), distended (X4.), rebound (X4.), guarding (X4.), firm, rigid, organomegaly, mass Comments: no ascites, jaundice, distension. - Routine Exam Comments: no tenderness over bladder area. - Routine Extremities Exam Absent: cyanosis, pallor - Routine Back/Spine/Pelvis Exam Comments: no clinical evidence of upper UTI at this time. - Routine Skin Exam Comments: see above. otherwise no skin changes from previous to uncovered areas. - Routine Neurological Exam Present: alert, oriented X3 no changes neurologically from previous baseline. no focal deficits grossly. no clinical evidence of depression, robert, altered mentation/sensorum/alertness , confusion, psychosis, delerium. - Routine Psychiatric Exam Present: normal affect, normal thought process, cooperative. Absent: auditory hallucinations, visual hallucinations, tactile hallucinations, depressed, anxious, agitated, paranoid, manic Results - Labs CBC & Chem 7: 02/25/17 16:13 02/25/17 16:13 Microbiology Results: Microbiology 02/25/17 16:18 Peripheral/Iv Start Blood Culture - Preliminary Culture Initiated - Results Pending 02/25/17 16:13 Peripheral/Iv Start Blood Culture - Preliminary Culture Initiated - Results Pending Assessment and Plan Assessment and Plan: acute left lower leg cellulitis secondary to MSSA, failure of outpatient antibiotic chronic venous insufficiency and venous stasis dermatitis T2DM HTN CAD hyperlipidemia high salt intake -admit to inpatient. start routine vitals with call parameters, I's and O's , daily weights, oxygen as needed, cardiac and diabetic low sodium diet, activity as tolerated, outline cellulitis and follow, wrap legs pending testing below, leg elevation. -cbc, cmp, mg, phos, blood cultures X2, wound gram stain and culture, coags , d-dimer, UA now. -b/l LE venous dopplar and arterial ultrasound pending the above. echocardiogram ordered. -cbc, cmp, tsh in the AM. -start ancef IV. start low dose norco prn for pain. continue current aspirin, multivitamin, vitamin C, metoprolol, chlorthalidone, novolog with meals, levamir qHS, lisinopril. start novolog s/s, GLUBS, hypoglycemia protocol. hold parameters put on bp meds. giving some lasix a consideration but hold for now and see if above therapies work. start colace prn while on the norco prn. -hold home metformin for now. discontinue previous keflex. no other tylenol products other than noted above. -Dr. Montgomery of surgery and wound care team consulted. will consult nutrition to instruct patient on diabetes and low salt diet. atopic dermatitis -hold clobetasol cream for now. all other chronic medical conditions stable and no other changes to plan of care at this time. ppx -no SCD's for DVT ppx as noted above. start SQ lovenox pending the above testing. -continue PO diet for GI ppx. -FULL CODE -dispo heavily dependent on the above. DVT Prophylaxis: Lovenox GI Prophylaxis: other (PO diet.) Resuscitation Status: Full Code - Time spent with patient Time with patient PN: 50 minutes Sepsis Assessment - Evaluation Severe Sepsis: none seen
[2017-02-25] MEDS: CEFAZOLIN 1 G in NS 100 ML IV SCH (18:41)
[2017-02-25] MEDS: INSULIN ASPART 100unit/ml INJECTION SQ SCH (18:56)
[2017-02-25] MEDS: SALINE FLUSH 10ml SYRINGE IV PRN (19:43)
[2017-02-25] MEDS: INSULIN DETEMIR 100unit/ml INJECTION SQ SCH (22:29)
[2017-02-25] MEDS ORDERED: INSULIN DETEMIR 100unit/ml INJECTION SQ ONE (22:30)
[2017-02-25] MEDS: SIMVASTATIN 40 MG TABLET PO SCH (22:34)
[2017-02-25] MEDS ORDERED: DOCUSATE SODIUM 100 MG CAPSULE PO PRN (23:00)
[2017-02-26] MEDS: CEFAZOLIN 1 G in NS 100 ML IV SCH ×3 (01:50→18:15)
[2017-02-26] MEDS: SALINE FLUSH 10ml SYRINGE IV PRN ×2 (02:30→06:08)
[2017-02-26] MEDS: HYDROCODONE/APAP 5mg/325mg TABLET PO PRN ×3 (04:41→21:09)
--- NOTE | 2017-02-26 07:56 | General Surgery Consult Note ---
Consult date: 02/26/17 Attending Physician: Abram Sutton DO Reason for consult: wound care (cellulitis left leg) PFS Patient Stated Medical History Cataracts Yes: start of Coronary Artery Disease Yes Hypertension Yes Myocardial Infarction Yes Diabetes Mellitus Type 2 Yes Hx Incontinence Yes Anemia Yes Osteoarthritis Yes Cellulitis Yes Clinic Medical History (Last Updated 02/03/17 @ 13:15 by Katina Esquivel) HTN (hypertension) (Chronic Medical) Diabetes (Chronic Medical) Joint pain (Chronic Medical) Back problem (Chronic Medical) Arthritis (Chronic Medical) Surgical History: * Colonoscopy - 01/11/[address] Winkler at [facility] in [place], [place]. Endoscopy revealed 2 polyps 1 was mixed tubular adenoma/HP with minimal grandular dysplasia. 1 HP polyp. * CABG x - [address] Simon Perrin in [place], [place]. * Sinus surgery - 2004 in [place], [place]. *Heart Cath 11/11/2011 EF 60%, Stenosis of LAD 80%, Diagonal 95%, RCA 80-90%. *Peripheral angiography Left anterior tibial artery occlusion, no significant PAD, posterior tibial patent Family History: Family History (Last Updated 02/03/17 @ 14:12 by Katina Esquivel) Sister , at 60 Heart attack Brother HTN (hypertension) Mother Heart disease Type 2 diabetes mellitus Father Heart disease HTN (hypertension) High cholesterol Arthritis Daughter Type 2 diabetes mellitus Maternal Grandmother Breast cancer - Social History Smoking status: Never smoker Medications Home Medications Medication Instructions Recorded Confirmed Type Simvastatin 40 mg PO HS #0 08/26/10 02/25/17 History Aspirin 325 mg PO DAILY #0 11/10/11 History Multivitamins (Multivitamin) 1 tab PO DAILY #0 11/10/11 02/25/17 History Ascorbic Acid [Vitamin C] 500 mg PO DAILY #0 tab 10/16/15 02/25/17 History Acetaminophen 1,000 mg PO Q8H PRN #0 07/09/16 02/25/17 History Acetaminophen [Acetaminophen 8 650 mg PO BID PRN #0 07/09/16 02/25/17 History Hour] Chlorthalidone [Hygroton] 25 mg PO DAILY #0 07/09/16 02/25/17 History Insulin Aspart [Novolog Flexpen] 14 unit SQ BIDBL #0 07/09/16 02/25/17 History Insulin Aspart [Novolog Flexpen] 23 dose SQ WS #0 07/09/16 02/25/17 History Metformin HCl 500 mg PO BID #0 07/09/16 02/25/17 History Methylsulfonylmethane [MSM] 500 mg PO QAM #0 07/09/16 02/25/17 History Methylsulfonylmethane [MSM] 500 mg PO TID #0 07/09/16 02/25/17 History Metoprolol Tartrate 12.5 mg PO BID #0 07/09/16 02/25/17 History [place]-3 Fatty Acids/Fish Oil [Fish 1,000 mg PO DAILY #0 07/09/16 02/25/17 History Oil 1,000 mg Capsule] Insulin Detemir (Levemir) 36 u SQ HS #0 02/03/17 02/25/17 History lisinopril 10 mg tablet 20 mg PO DAILY #0 tab 02/03/17 History Allergies Allergy/AdvReac Type Severity Reaction Status Date / Time ibuprofen Allergy Intermediate KIDNEY Verified 02/03/17 13:28 FAILURE Review of Systems 10-point ROS: negative except for HPI and the following: - Cardiovascular Cardiovascular: Present: edema/swelling (and weeping of leg, culture of fluid obtained in the office) - Musculoskeletal Musculoskeletal: Present: joint pain - Endocrine Endocrine: Present: diabetes - Vital Signs Last Vital Signs Temp 97.8 F 02/25/17 23:00 Pulse 103 H 02/25/17 23:00 Resp 19 02/25/17 23:00 BP 139/67 02/25/17 23:00 Pulse Ox 98 02/25/17 23:00 - Laboratory Result Diagrams: 02/26/17 04:04 02/26/17 04:04 - Microbiogy Microbiology 02/25/17 17:05 Leg, Left Lower Superficial Wound Culture - Preliminary Culture Initiated - Results Pending 02/25/17 16:18 Peripheral/Iv Start Blood Culture - Preliminary Culture Initiated - Results Pending 02/25/17 16:13 Peripheral/Iv Start Blood Culture - Preliminary Culture Initiated - Results Pending General Surgery Results - Results Labs: 02/26/17 04:04 02/26/17 04:04 Microbiology: Microbiology 02/25/17 17:05 Leg, Left Lower Superficial Wound Culture - Preliminary Culture Initiated - Results Pending 02/25/17 16:18 Peripheral/Iv Start Blood Culture - Preliminary Culture Initiated - Results Pending 02/25/17 16:13 Peripheral/Iv Start Blood Culture - Preliminary Culture Initiated - Results Pending Hospital Course Summary Disclaimer: The visit summary below is not to be considered part of the above Progress Note.
[2017-02-26] MEDS: INSULIN ASPART 100unit/ml INJECTION SQ SCH ×3 (08:28→18:14)
[2017-02-26] MEDS: LISINOPRIL 20 MG TABLET PO SCH (08:30)
[2017-02-26] MEDS: ASPIRIN 325 MG TABLET PO SCH (08:30)
[2017-02-26] MEDS: ASCORBIC ACID 500 MG TABLET PO SCH (08:30)
[2017-02-26] MEDS: MULTI-VITAMIN + MINERAL TABLET PO SCH (08:31)
[2017-02-26] MEDS: ENOXAPARIN 40 MG/0.4 ML INJECTION SQ SCH (08:31)
[2017-02-26] MEDS: OMEGA-3 ACID ESTERS 1 GM CAPSULE PO SCH (08:31)
[2017-02-26] MEDS: CHLORTHALIDONE 25 MG TABLET PO SCH (08:31)
--- NOTE | 2017-02-26 09:25 | Ultrasound Report ---
Indication: wound PROCEDURE: US venous doppler LE BI: Encounter: Initial Comparison: None Technique: Color Doppler duplex and grayscale sonographic imaging of both lower extremities was performed. Findings: There is no evidence for acute deep venous thrombosis in either thigh. Specifically, serial graded compression was performed from the inguinal ligament to the popliteal bifurcation, bilaterally, demonstrating appropriate compressibility of the deep venous system. In addition, color and pulsed Doppler demonstrate appropriate spontaneous flow, variation with respiration, and augmentation with calf compression. At the ankle, normal flow is identified in the posterior tibial veins; these vessels are also normal in caliber. Impression: No evidence of acute DVT in either lower limb. There is a preliminary report by virtual radiologic. .
--- NOTE | 2017-02-26 10:48 | Cardiology Consult Note ---
<Jocelyn Leach - Last Filed: 03/02/17 11:38> History of Present Illness Consult date: 02/26/17 Requesting physician: Abram Sutton Chief complaint: peripheral vascular disease History of present illness: Latisha is a 56 year old female known to Dr. Banks with a history of CAD of CABG, HTN, HLD, DM, type II, she is a patient of Dr. Campuzano and has a known history of chronic lower extremity venous insufficiency and stasis. About 2 to 3 weeks ago she reportedly started on Keflex and her leg was cultured. and grew MSSA. She was admitted to [facility] as she has failed outpatient antibiotics and now requires inpatient therapy. Dr. Banks is consulted to evaluate peripheral vascular disease and we appreciate the consult. Arterial duplex done this hospitalization shows worsened stenosis compared to Angiogram last September,. Review of Systems - Constitutional Constitutional: Absent: chills, fatigue, fever(s) - EENMT Eyes: Absent: change in vision Balance: Absent: vertigo Mouth/Throat: Absent: sore throat - Cardiovascular Cardiovascular: Present: edema. Absent: chest pain, palpitations, syncope, dyspnea on exertion Vascular: Present: pedal edema, unilateral swelling - Respiratory Respiratory: Absent: cough, dyspnea - Gastrointestinal Gastrointestinal: Absent: abdominal pain, diarrhea, nausea, vomiting - Genitourinary Genitourinary: Absent: dysuria - Integumentary/Breasts Integumentary: Present: erythema (LLE) - Neurological Neurological: Absent: dizziness - Endocrine Endocrine: Absent: palpitations PFSH Patient Stated Medical History Cataracts Yes: start of Coronary Artery Disease Yes Hypertension Yes Myocardial Infarction Yes Diabetes Mellitus Type 2 Yes Hx Incontinence Yes Anemia Yes Osteoarthritis Yes Cellulitis Yes Clinic Medical History (Last Updated 02/03/17 @ 13:15 by Katina Esquivel) HTN (hypertension) (Chronic Medical) Diabetes (Chronic Medical) Joint pain (Chronic Medical) Back problem (Chronic Medical) Arthritis (Chronic Medical) Surgical History: * Colonoscopy - 01/11/[address] Winkler at [facility] in [place], [place]. Endoscopy revealed 2 polyps 1 was mixed tubular adenoma/HP with minimal grandular dysplasia. 1 HP polyp. * CABG x 4 - [address] Simon Perrin in [place], [place]. * Sinus surgery - 2004 in [place], [place]. *Heart Cath 11/11/2011 EF 60%, Stenosis of LAD 80%, Diagonal 95%, RCA 80-90%. *Peripheral angiography Left anterior tibial artery occlusion, no significant PAD, posterior tibial patent Family History: Family History (Last Updated 02/03/17 @ 14:12 by Katina Esquivel) Sister , at 60 Heart attack Brother HTN (hypertension) Mother Heart disease Type 2 diabetes mellitus Father Heart disease HTN (hypertension) High cholesterol Arthritis Daughter Type 2 diabetes mellitus Maternal Grandmother Breast cancer - Social History Smoking status: Never smoker Substance use type: does not use Alcohol intake frequency: does not drink Current occupational status: disabled Current residence: Apartment/Private Home Medications Home Medications Medication Instructions Recorded Confirmed Type Simvastatin 40 mg PO HS #0 08/26/10 02/25/17 History Aspirin 325 mg PO DAILY #0 11/10/11 History Multivitamins (Multivitamin) 1 tab PO DAILY #0 11/10/11 02/25/17 History Ascorbic Acid [Vitamin C] 500 mg PO DAILY #0 tab 10/16/15 02/25/17 History Chlorthalidone [Hygroton] 25 mg PO DAILY #0 07/09/16 02/25/17 History Insulin Aspart [Novolog Flexpen] 14 unit SQ BIDBL #0 07/09/16 02/25/17 History Insulin Aspart [Novolog Flexpen] 23 dose SQ WS #0 07/09/16 02/25/17 History Metformin HCl 500 mg PO BID #0 07/09/16 02/25/17 History Metoprolol Tartrate 12.5 mg PO BID #0 07/09/16 02/25/17 History [place]-3 Fatty Acids/Fish Oil [Fish 1,000 mg PO DAILY #0 07/09/16 02/25/17 History Oil 1,000 mg Capsule] lisinopril 10 mg tablet 20 mg PO DAILY #0 tab 02/03/17 History Allergies Allergy/AdvReac Type Severity Reaction Status Date / Time ibuprofen Allergy Intermediate KIDNEY Verified 02/03/17 13:28 FAILURE Exam Vital signs: Temperature 97.8 F 02/25/17 23:00 Pulse Rate 94 02/26/17 08:00 Respiratory Rate 18 02/26/17 08:00 Blood Pressure 146/80 H 02/26/17 08:00 Pulse Oximetry 97 02/26/17 08:00 - Constitutional no acute distress, morbidly obese, cooperative - Routine HEENT Exam Head: Present: normocephalic ENT: Present: mucous membranes moist - Routine Neck Exam Absent: JVD, carotid bruit - Routine Chest/Breast/Axilla Exam Chest wall: Absent: tenderness - Routine Respiratory Exam Present: CTA bilaterally. Absent: rales, wheezes - Routine Cardiovascular Exam Present: RRR, no murmur. Absent: JVD - Routine Abdominal Exam Present: soft, normoactive bowel sounds - Routine Extremities Exam Present: edema, pulses intact - Detailed Extremities Exam: Vascular Peripheral pulses: 1+ dorsalis pedis (L) - Detailed Lower Extremity Exam Lower leg: Left swelling, Left tenderness, Left erythema, Left warmth - Routine Skin Exam Present: intact, erythema (LLE), dry, warm - Routine Neurological Exam Present: alert, oriented X3 - Routine Psychiatric Exam Present: normal affect, normal thought process Results 02/26/17 04:04 02/26/17 04:04 Cardiac Enzymes 02/25/17 02/26/17 Range/Units 16:13 04:04 AST 17 20 (14-36) U/L Coagulation 02/25/17 Range/Units 16:13 APTT 27.6 (24-36) SEC CBC 02/25/17 02/26/17 Range/Units 16:13 04:04 WBC 7.6 6.1 (4.5-11.0) T/MM3 RBC 3.96 L 3.98 L (4.00-5.20) M/MM3 Hgb 11.4 L 11.4 L (12-16) GM/DL Hct 36.7 37.1 (36-46) % Plt Count 290 273 (130-400) T/MM3 Neut # (Auto) 5.3 3.7 (1.8-7.7) T/MM3 Lymph # (Auto) 1.8 1.8 (1-4.8) T/MM3 [place] # (Auto) 0.4 0.4 (0-0.8) T/MM3 Eos # (Auto) 0.1 0.1 (0-0.5) T/MM3 Baso # (Auto) 0.0 0.0 (0-0.2) T/MM3 Comprehensive Metabolic Panel 02/25/17 02/26/17 Range/Units 16:13 04:04 Sodium 146 H 145 H (134-144) MEQ/L Potassium 4.7 4.9 (3.6-5) MEQ/L Chloride 107 106 (98-107) MEQ/L Carbon Dioxide 25 24 (22-30) MEQ/L BUN 24.0 H 23.0 H (7-17) MG/DL Creatinine 0.9 0.9 (0.7-1.2) MG/DL Glucose 116 H 115 H (65-110) MG/DL Calcium 9.9 9.6 (8.4-10.2) MG/DL AST 17 20 (14-36) U/L ALT 30 29 (9-52) U/L Alkaline Phosphatase 115 105 (38-126) U/L Total Protein 7.9 7.3 (6.3-8.2) G/DL Albumin 4.2 3.9 (3.5-5.0) G/DL Intake and Output 02/25/17 02/26/17 02/26/17 22:59 06:59 14:59 Intake Total 1140 / 1140 400 / 400 340 / 340 Output Total 300 / 300 Balance 840 / 840 400 / 400 340 / 340 Intake: IV 100 / 100 100 / 100 100 / 100 Cefazolin 1 g In Ns 100 ml @ 100 / 100 100 / 100 100 / 100 200 mls/hr IV Q8HR [facility] Rx#: [id number] Oral 1040 / 1040 300 / 300 240 / 240 Output: Urine 300 / 300 Other: Urine Appearance Clear Clear Urine Color Yellow Pale Yellow Urine Odor Normal Normal # Voids 1 Weight 263 lb 0.183 oz Patient Weight 02/27/17 06:59 Weight 263 lb 0.183 oz - Imaging and Cardiology Echo: pending Imaging & Cardiology Narrative: Date of Exam: 02/25/17 Ordering Provider: Abram Sutton MD Type of Exam(s): US arterial duplex LE BI Reason for Exam(s): cellulitis Indication: cellulitis PROCEDURE: US arterial duplex LE BI: Technique: Grayscale color and duplex Doppler imaging was performed of the arterial tree of both legs. Findings: RIGHT LEG (cm/sec) Common Femoral 190 Superficial Femoral Proximal 178 Mid 180 Distal 124 Popliteal 122 KAREN-prox 62.3 FUNDING ANALYST-prox 117 KAREN-dist 52.6 FUNDING ANALYST-dist 133 LEFT LEG (cm/sec) Common Femoral 205 Superficial Femoral Proximal 239 Mid 217 Distal 218 Popliteal 150 KAREN-prox 68.8 FUNDING ANALYST-prox 129 KAREN-dist 115 FUNDING ANALYST-dist 94.5 Elevated velocities in the left common and superficial femoral arteries with dampened waveforms in the anterior and posterior tibial arteries. This is consistent with a 50-75% stenosis in the common and superficial femoral arteries. There is quite diminished flow in the distal dorsalis pedis artery. No focal velocity elevation in the right lower extremity arteries with diffusely dampened waveforms and mildly decreased flow in the calf arteries. IMPRESSION: 1. 50-75% stenosis in the left common femoral and superficial femoral arteries with decreased flow in the calf arteries. No complete occlusion. 2. Mild, less than 50% stenosis in the right mid superficial femoral artery with slightly diminished flow in the right calf arteries. 02/26/17 12:31 Assessment and Plan - Assessment and Plan (1) Cellulitis of left lower extremity Status: Acute Arterial duplex done this hospitalization shows worsened stenosis compared to Angiogram last September,. - Plan LE angiogram with possible FUNDING ANALYST/stent tomorrow - Npo after breakfast if eaten before 0800. - EKG and telemetry to ensure no arrhythmia which could lead to embolic blockages (2) Atherosclerosis of coronary artery bypass graft without angina pectoris Status: Chronic Has outpatient adenosine myocardial perfusion test scheduled before next office visit. (3) HTN (hypertension) Status: Chronic Well controlled on current therapy, continue current therapy (4) Mixed hyperlipidemia Status: Chronic PCP manages (5) Type 2 diabetes mellitus without complications Status: Chronic PCP manages (6) Chronic venous insufficiency Status: Chronic - Assessment and Plan 02/27/16 Arterial duplex done this hospitalization shows worsened stenosis compared to Angiogram last September,. - Plan LE angiogram with possible FUNDING ANALYST/stent tomorrow - Npo after breakfast if eaten before 0800. - EKG and telemetry to ensure no arrhythmia which could lead to embolic blockages. Thank you for letting us participate in the care of this patient. Hospital Course Summary Disclaimer: The visit summary below is not to be considered part of the above Progress Note. <Jorge Banks - Last Filed: 03/04/17 09:17> [facility] Patient Stated Medical History Cataracts Yes: start of Coronary Artery Disease Yes Hypertension Yes Myocardial Infarction Yes Diabetes Mellitus Type 2 Yes Hx Incontinence Yes Anemia Yes Osteoarthritis Yes Cellulitis Yes Clinic Medical History (Last Updated 02/26/17 @ 11:24 by Derrell Winkler MD) HTN (hypertension) (Chronic Medical) Joint pain (Chronic Medical) Back problem (Chronic Medical) Arthritis (Chronic Medical) Coronary artery disease (Chronic Medical) Body Technician: Dr. Banks Type 2 diabetes mellitus treated with insulin (Chronic Medical) Adenomatous colon polyp (Resolved Medical) Mixed tubular adenoma/hyperplastic polyp with minimal glandular dysplasia removed 12/2016. Family History: Family History (Last Updated 02/03/17 @ 14:12 by Katina Esquivel) Sister , at 60 Heart attack Brother HTN (hypertension) Mother Heart disease Type 2 diabetes mellitus Father Heart disease HTN (hypertension) High cholesterol Arthritis Daughter Type 2 diabetes mellitus Maternal Grandmother Breast cancer Exam Vital signs: Temperature 98.2 F 03/01/17 15:23 Pulse Rate 89 03/01/17 15:46 Respiratory Rate 20 03/01/17 15:23 Blood Pressure 103/82 03/01/17 15:23 Pulse Oximetry 92 03/01/17 15:23 Results 03/01/17 04:08 03/01/17 04:08 Assessment and Plan - Attestation Attestation Narrative: 03/04/17 09:17 Recommendation After examining the patient I agree with the above assessment. I am involved in the formulation of the patient's plan of care. - Assessment and Plan (1) HTN (hypertension) Status: Chronic (2) Atherosclerosis of coronary artery bypass graft without angina pectoris Status: Chronic (3) Mixed hyperlipidemia Status: Chronic (4) Type 2 diabetes mellitus without complications Status: Chronic (5) Cellulitis of left lower extremity Status: Acute (6) Chronic venous insufficiency Status: Chronic Hospital Course Summary Disclaimer: The visit summary below is not to be considered part of the above Progress Note.
--- NOTE | 2017-02-26 11:30 | Ultrasound Report ---
Indication: cellulitis PROCEDURE: US arterial duplex LE BI: Technique: Grayscale color and duplex Doppler imaging was performed of the arterial tree of both legs. Findings: RIGHT LEG (cm/sec) Common Femoral 190 Superficial Femoral Proximal 178 Mid 180 Distal 124 Popliteal 122 KAREN-prox 62.3 ZYGLO INSPECTOR-prox 117 KAREN-dist 52.6 ZYGLO INSPECTOR-dist 133 LEFT LEG (cm/sec) Common Femoral 205 Superficial Femoral Proximal 239 Mid 217 Distal 218 Popliteal 150 KAREN-prox 68.8 ZYGLO INSPECTOR-prox 129 KAREN-dist 115 ZYGLO INSPECTOR-dist 94.5 Elevated velocities in the left common and superficial femoral arteries with dampened waveforms in the anterior and posterior tibial arteries. This is consistent with a 50-75% stenosis in the common and superficial femoral arteries. There is quite diminished flow in the distal dorsalis pedis artery. No focal velocity elevation in the right lower extremity arteries with diffusely dampened waveforms and mildly decreased flow in the calf arteries. IMPRESSION: 1. 50-75% stenosis in the left common femoral and superficial femoral arteries with decreased flow in the calf arteries. No complete occlusion. 2. Mild, less than 50% stenosis in the right mid superficial femoral artery with slightly diminished flow in the right calf arteries. .
[2017-02-26] MEDS: INSULIN ASPART 100unit/ml INJECTION SQ PRN (12:36)
--- NOTE | 2017-02-26 18:28 | Progress Note ---
- Date 02/26/17 Subjective: blood sugar noted to be 44 last night and long acting insulin cut to 18 units from 36. patient generally asymptomatic with this. sugars ok today. no acute issues overnight otherwise. cellulitis markedly improved on left lower extremity from previous. redness has receded a great deal from the line drawn yesterday. patient doesn't feel systemically unwell at all. no headaches, stroke symptoms, syncope, dizziness, near-syncope, falls, trauma, injuries, fatigue, weakness, fevers, chills, focal neurologic deficits, vision changes, ear pain, sinus pain, sore throat, runny nose. no other skin changes or rashes. no chest pain, SOA, orthopnea, PND. edema is greatly improved from yesterday. left leg far less tender. no new open areas and previous erosion is scabbing over. no palpitations, cough, sputum production, hemoptysis, abdominal pain, GERD symptoms, nausea, vomiting, hematemesis, coffee ground emesis, melena, BRBPR, constipation, diarrhea, bloody/black stools, dysphagia, GI warning symptoms. no mood changes, depression symptoms, altered mentation. no events called on telemetry. no dysuria, hematuria, urinary frequency, flank pain, nocturia, urinary/bowel incontinance, urinary retention, other urinary symptoms/changes. no changes in cognition. present for most of encounter today. no BM since admission but patient denies recent constipation as noted above. no events called on telemetry. appetite is ok. no new issues otherwise at this time. Objective Vital signs: Temperature 97.7 F 02/26/17 17:31 Pulse Rate 92 02/26/17 17:31 Respiratory Rate 16 02/26/17 17:31 Blood Pressure 129/72 02/26/17 17:31 Pulse Oximetry 100 02/26/17 17:31 Height/Weight/BMI: Height 1.6 m Weight 119.3 kg Body Mass Index 46.4 - Constitutional Present: no acute distress, morbidly obese, cooperative. Absent: thin, cachectic, diaphoretic, disheveled, combative, agitated, somnolent, obtunded - Routine HEENT Exam Head: Present: normocephalic, atraumatic Eye: Absent: periorbital ecchymosis, periorbital swelling ENT: Present: mucous membranes moist - Routine Respiratory Exam Present: CTA bilaterally. Absent: accessory muscle use, patient mechanically ventilated, dyspnea, decreased breath sounds, prolonged expiratory phase, rales , respiratory distress, rhonchi, stridor, wheezes, crackles, distant breath sounds, diminished air movement Comments: lung sounds heard in all lung casarez b/l at this time. all findings above bilateral unless otherwise noted. - Routine Cardiovascular Exam Present: RRR. Absent: bradycardia, tachycardia, irregular rhythm, irregularly irregular, JVD Comments: no new murmurs. cellulitis in left lower extremity about 70% improved from previous and previous LLE edema markedly improved also. pulses in LE's unchanged from previous baseline. no changes in perfusion status in lower extremities b/l at this time. callibur of left leg still greater than the right but this is improved from yesterday. tenderness of LLE improved significantly from 02/26/16 also. compartments soft b/l in LE's at this time. no clinical evidence of compartments syndrome in LE's b/l at this time. no clinical evidence of acute or worsening neurovascular or musculoskeletal compromise b/l in LE's at this time or other extremities for that matter. cardiac exam is otherwise unchanged from previous at this time. no clinical evidence of necrotizing process in LLE at this time. no crepitus or purpura. no new open areas there. no fluctuance/weeping/drainage at this time from this area. - Routine Abdominal Exam Present: soft (X4.), normoactive bowel sounds (X4.), non distended (X4.), non tender (X4.). Absent: tenderness (X4.), distended (X4.), rebound, guarding, firm, rigid, organomegaly, mass Comments: no ascites or distension. - Routine Exam Comments: no tenderness over bladder area. no clinical evidence of upper UTI at this time. - Routine Extremities Exam Comments: see above. - Routine Back/Spine/Pelvis Exam Comments: see above. - Routine Musculoskeletal Exam Musculoskeletal: Present: moving extremities well (range of motion in RLE and ankle/toes improved from yesterday. ) - Routine Skin Exam Comments: see above. no other new changes from previous to uncovered areas. - Routine Neurological Exam Present: alert, oriented X3. Absent: altered mental status no changes neurologically from previous baseline. affect and cognition unchanged from previous. no clinical evidence of altered mental status/sensorum /alertness. - Routine Psychiatric Exam Present: normal affect, normal thought process, cooperative. Absent: auditory hallucinations, visual hallucinations, tactile hallucinations, depressed, anxious, agitated, paranoid, manic Results - Labs CBC & Chem 7: 02/26/17 04:04 02/26/17 04:04 Microbiology Results: Microbiology 02/25/17 16:18 Peripheral/Iv Start Gram Stain - Final 02/25/17 16:18 Peripheral/Iv Start Blood Culture - Preliminary Staphylococcus species 02/25/17 16:13 Peripheral/Iv Start Blood Culture - Preliminary No Growth After 1 Day 02/25/17 17:05 Leg, Left Lower Gram Stain - Final 02/25/17 17:05 Leg, Left Lower Superficial Wound Culture - Preliminary Enterococcus species Assessment and Plan Assessment and Plan: acute left lower leg cellulitis secondary to MSSA, failure of outpatient antibiotics, marked clinical improvement today noted staphlococcus aureus growing in X1 of 2 blood cultures from admission enterococcus growing in wound culture thus far in small amount which I would surmise is contaminant peripheral vascular disease wound culture left lower extremity with MSSA done a few days ago as outpatient chronic venous insufficiency and venous stasis dermatitis X1 episode of asymptomatic hypoglycemia last night which has resolved multifactorial anemia T2DM HTN CAD hyperlipidemia high salt intake -continue inpatient, routine vitals with call parameters, I's and O's, daily weights, oxygen as needed, cardiac and diabetic low sodium diet, activity as tolerated, outlined cellulitis and following, leg elevation. given marked clinical improvement as well as MSSA growing in culture as outpatient there's no indication to switch abx for MRSA cover at this time. will continue as is noted below. small amount of enterococcus in wound culture is not likely infective organism. telemetry started by cardiovascular. -cbc's with mild multifactorial anemia and otherwise unremarkable. cmp's with sugars in 100's and otherwise unremarkable. mg/phos, coags ok. d-dimer elevation, UA unremarkable. b/l LE venous dopplar unremarkable. b/l LE arterial dopplar u/s with no hyperacute findings but lost of diffuse peripheral vascular disease and varying grades of stenosis. wound gram stain as noted above. blood cultures X2 as noted above. TSH normal. GLUBS generally in 100's. -echocardiogram ordered and pending. -cbc, cmp, CRP in the AM. -continue ancef IV day 2, norco prn for pain, aspirin, multivitamin, vitamin C, metoprolol, chlorthalidone, novolog with meals, lisinopril, novolog s/s, GLUBS, hypoglycemia protocol. continue hold parameters put on bp meds. given improvement in LE edema there's no need for lasix right now. continue colace prn. decreased home levamir from 36 units qHS to 18 units qHS for now given low blood sugar last night. -continue hold home metformin for now. -Dr. Montgomery of surgery and wound care team consulted. nutrition and education consulted. Dr. Banks of cardiovascular consulted and plans angiogram tomorrow. Dr. Stephanie Childers of infectious disease consulted and spoken with. she agrees with continuing ancef for now but if any clinically worsening would switch to vancomycin. -further management decisions pending the above. atopic dermatitis -hold clobetasol cream for now. all other chronic medical conditions stable and no other changes to plan of care at this time. ppx -continue SQ lovenox -continue PO diet for GI ppx. -FULL CODE -dispo continue inpatient today. DVT Prophylaxis: Lovenox GI Prophylaxis: other (continue PO diet. ) Resuscitation Status: Full Code - Time spent with patient Time with patient PN: 25 minutes - Physician Narrative Narrative: Date: 02/26/17 Time: 1827 Sepsis Assessment - Evaluation Severe Sepsis: none seen
--- NOTE | 2017-02-26 20:30 | Consultation ---
DATE OF CONSULTATION 02/26/2017 FINDINGS Mrs. Coates is a 56-year-old female whom I was asked to see as a result of cellulitis involving her left lower extremity. Patient informs me that she has had a longstanding history with "problems with her legs." Patient states she has had a prior infection involving her left lower extremity but "never to this extent". The patient apparently does have a longstanding history for chronic venous insufficiency with associated venous stasis. The patient states that about three weeks ago she began to develop some drainage from her leg. Her leg then became "red and very painful." Patient was attempted to be managed on an outpatient basis and was placed on Keflex. Cultures were obtained through [facility] and her culture did return revealing methicillin-sensitive Staph aureus. Despite the initiation of oral antibiotics on an outpatient basis her cellulitis involving her left lower extremity progressively became worse. The patient was subsequently admitted for further care. This evening the patient states that she continues to experience pain associated with her left lower extremity. She states that the redness, however, has markedly improved since her admission after initiating intravenous antibiotics. PAST MEDICAL HISTORY, PAST SURGICAL HISTORY, MEDICATIONS, ALLERGIES, SOCIAL HISTORY, FAMILY HISTORY, REVIEW OF SYSTEMS Performed by my nurse practitioner, Aníbal Lozada APRN. PHYSICAL EXAMINATION GENERAL: Mrs. Coates is a 56-year-old female who this evening does not appear to be in acute distress. VITAL SIGNS: Temperature 97.7, pulse 92, respirations 16, blood pressure 129/72, SAO2 100% on room air. HEENT: Normocephalic. Pupils are equally round and react to light and accommodation. CHEST: Clear to auscultation bilaterally. HEART: Regular rate and rhythm. Normal S1 and S2 without gallops, murmurs or clicks. ABDOMEN: Palpation of the abdomen reveals it to be soft and nontender. I do not appreciate any evidence for hepatosplenomegaly nor abnormal masses. EXTREMITIES: Attention was focused to the left lower extremity. One can see some ink booker upon the patient's thigh region. The patient stated that originally the "redness" extended to the edge of this ink gabbie. Now the erythema has significantly decreased and is localized overlying the distal tibial region and ankle region as well as slightly upon the dorsum of the foot. There has been a component of some epidermolysis with the epidermis being somewhat "sloughed." Fortunately, however, there is no large open wound or any evidence for significant necrotic tissue/skin at this time. Palpation of the thigh region as well as the proximal calf did not elicit significant pain to the patient. The patient was still quite tender overlying the area of erythema involving the distal tibial region as well as within the malleolar region. There is no evidence for subcutaneous crepitans. No evidence for fluctuance to suggest underlying abscess. NEURO: Cranial nerves II-XII grossly intact. Patient is without focal motor or sensory deficits. LABORATORY/RADIOGRAPHIC EVALUATION The patient had a CBC today and her white count 6.1. Hemoglobin is 11.4. CMP was obtained and found to be essentially within normal limits. BUN is elevated at 23.0. Glucose was elevated at 115. Sodium slightly elevated at 145. ASSESSMENT 56-year-old diabetic female with multiple associated medical comorbidities who presents with marked cellulitis involving left lower extremity. Patient has made marked improvement after initiation of intravenous antibiotics. PLAN Would continue with current ongoing intravenous antibiotics. Patient currently is on Ancef 1 g IV q.8h. From a surgical standpoint, fortunately I do not feel there is much for me to do at this juncture in time. There is no element of significant necrosis requiring debridement nor does the patient have an underlying abscess requiring drainage. Since there is no open wound at this point in time there is no need for specialized/advanced wound dressings. Would simply apply some vitamin A & D ointment to her left lower extremity to facilitate "sloughing" of the epidermolysis. Will continue to follow along in the patient's care intermittently. BEAR
[2017-02-26] MEDS: SIMVASTATIN 40 MG TABLET PO SCH (21:09)
[2017-02-26] MEDS ORDERED: INSULIN DETEMIR 100unit/ml INJECTION SQ ONE (21:26)
[2017-02-26] MEDS: INSULIN DETEMIR 100unit/ml INJECTION SQ SCH (21:27)
[2017-02-27] MEDS: CEFAZOLIN 1 G in NS 100 ML IV SCH ×3 (00:44→17:19)
[2017-02-27] MEDS: NS FLUSH BAG 500ml IV PRN (01:44)
--- NOTE | 2017-02-27 08:06 | Echocardiogram ---
DATE OF PROCEDURE February 27, [address] Abram Sutton This is a two-dimensional echo with spectral Doppler, color-flow and M-mode. It was obtained in a patient with pulmonary hypertension and coronary artery disease. Left atrial dimension is normal. Left ventricular end-diastolic dimension is normal. Left ventricle wall thickness is increased. LV systolic function is normal with ejection fraction of 67%. Right atrium is normal. Right ventricle is normal. Aortic root dimension is normal. Mitral valve is morphologically normal with mild mitral regurgitation. Aortic valve is a trileaflet structure with no stenosis or insufficiency. Tricuspid valve shows mild tricuspid regurgitation with moderate pulmonary hypertension with estimated pulmonary artery systolic pressure of 45. Pulmonary valve shows trace of pulmonary insufficiency. There is no pericardial effusion. IMPRESSION 1. Normal LV systolic function with ejection fraction of 67%. 2. Concentric left ventricular hypertrophy. 3. Mild mitral regurgitation. 4. Mild tricuspid regurgitation with moderate pulmonary hypertension with estimated pulmonary artery systolic pressure of 45. 5. Trace of pulmonary insufficiency. MTDD
[2017-02-27] MEDS: ASPIRIN 325 MG TABLET PO SCH (09:01)
[2017-02-27] MEDS: ENOXAPARIN 40 MG/0.4 ML INJECTION SQ SCH (09:01)
[2017-02-27] MEDS: LISINOPRIL 20 MG TABLET PO SCH (09:02)
--- NOTE | 2017-02-27 09:22 | Infectious Disease Consult ---
Infectious Disease Consult Date of Consultation: 02/27/17 Requesting Physician: Abram Sutton Reason for Consultation: antibiotic recs History of Present Illness: Ms. Coates is a 56 y/o woman who reports that she follows with Dr. Clay, although she denies to me that she has any skin problems. Her records indicate she has "atopic dermatitis." She reports that she developed problems with her skin last June when she had bedbugs. She states her home was treated and they haven't seen any bedbugs for "a long time." She reports that Dr. Clay gave her an ointment and a moisturizing lotion and after using this, she thinks her LLE skin got worse. She is a somewhat vague historian. Records indicate that she was seen recently for erythema LLE and had a wound culture obtained that grew MSSA. She is unable to tell me if she had a blister develop or a wound, or where exactly the wound culture was obtained on her leg. She was placed on keflex and her symptoms progressed. She was admitted here on 02/25/17 with LLE cellulitis. She states her L ankle was very swollen on admission, and it's now improved. She denies any fevers or chills, N/V or myalgias. She was placed on Ancef on admission 02/25 and her leg has been elevated and it's improved. One of two blood cultures drawn on admission grew a Staph species, thought to be S. aureus. After speaking with the micro lab, the aerobic bottle has CoNS and the anaerobic bottle has a Strep species. The other set is negative. She has not had fever. Her WBC, lactate and procalcitonin have been normal. Dr. Banks is consulted for PAD. Dr. Montgomery saw her yesterday,but did not feel that there was anything surgically indicated. Wound culture obtained here on 02/25 had light growth of Enterococcus species. Medications Home Medications Medication Instructions Recorded Confirmed Type Simvastatin 40 mg PO HS #0 08/26/10 02/25/17 History Aspirin 325 mg PO DAILY #0 11/10/11 History Multivitamins (Multivitamin) 1 tab PO DAILY #0 11/10/11 02/25/17 History Ascorbic Acid [Vitamin C] 500 mg PO DAILY #0 tab 10/16/15 02/25/17 History Acetaminophen 1,000 mg PO Q8H PRN #0 07/09/16 02/25/17 History Acetaminophen [Acetaminophen 8 650 mg PO BID PRN #0 07/09/16 02/25/17 History Hour] Chlorthalidone [Hygroton] 25 mg PO DAILY #0 07/09/16 02/25/17 History Insulin Aspart [Novolog Flexpen] 14 unit SQ BIDBL #0 07/09/16 02/25/17 History Insulin Aspart [Novolog Flexpen] 23 dose SQ WS #0 07/09/16 02/25/17 History Metformin HCl 500 mg PO BID #0 07/09/16 02/25/17 History Methylsulfonylmethane [MSM] 500 mg PO QAM #0 07/09/16 02/25/17 History Methylsulfonylmethane [MSM] 500 mg PO TID #0 07/09/16 02/25/17 History Metoprolol Tartrate 12.5 mg PO BID #0 07/09/16 02/25/17 History [place]-3 Fatty Acids/Fish Oil [Fish 1,000 mg PO DAILY #0 07/09/16 02/25/17 History Oil 1,000 mg Capsule] Insulin Detemir (Levemir) 36 u SQ HS #0 02/03/17 02/25/17 History lisinopril 10 mg tablet 20 mg PO DAILY #0 tab 02/03/17 History Allergies Allergy/AdvReac Type Severity Reaction Status Date / Time ibuprofen Allergy Intermediate KIDNEY Verified 02/03/17 13:28 FAILURE PFSH Patient Stated Medical History Cataracts Yes: start of Coronary Artery Disease Yes Hypertension Yes Myocardial Infarction Yes Diabetes Mellitus Type 2 Yes Hx Incontinence Yes Anemia Yes Osteoarthritis Yes Cellulitis Yes Clinic Medical History (Last Updated 02/26/17 @ 11:24 by Derrell Winkler MD) HTN (hypertension) (Chronic Medical) Joint pain (Chronic Medical) Back problem (Chronic Medical) Arthritis (Chronic Medical) Coronary artery disease (Chronic Medical) Change Coordinator: Dr. Banks Type 2 diabetes mellitus treated with insulin (Chronic Medical) Adenomatous colon polyp (Resolved Medical) Mixed tubular adenoma/hyperplastic polyp with minimal glandular dysplasia removed 12/2016. Surgical History: * Colonoscopy - 01/11/[address] Winkler at [facility] in [place], [place]. Endoscopy revealed 2 polyps 1 was mixed tubular adenoma/HP with minimal grandular dysplasia. 1 HP polyp. * CABG x 4 - [address] Simon Perrin in [place], [place]. * Sinus surgery - 2004 in [place], [place]. *Heart Cath 11/11/2011 EF 60%, Stenosis of LAD 80%, Diagonal 95%, RCA 80-90%. *Peripheral angiography Left anterior tibial artery occlusion, no significant PAD, posterior tibial patent Family History: Family History (Last Updated 02/03/17 @ 14:12 by Katina Esquivel) Sister , at 60 Heart attack Brother HTN (hypertension) Mother Heart disease Type 2 diabetes mellitus Father Heart disease HTN (hypertension) High cholesterol Arthritis Daughter Type 2 diabetes mellitus Maternal Grandmother Breast cancer - Social History Smoking status: Never smoker Substance use type: does not use Alcohol intake frequency: does not drink Current residence: Apartment/Private Home Review of Systems All systems PM: 10-point ROS was reviewed, no additional remarkable complaints except - Constitutional Constitutional: Absent: chills, fever(s) - EENMT Eyes: Absent: change in vision - Cardiovascular Cardiovascular: Absent: chest pain - Respiratory Respiratory: Absent: cough - Gastrointestinal Gastrointestinal: Absent: abdominal pain, diarrhea, nausea, vomiting - Genitourinary Genitourinary: Absent: dysuria - Musculoskeletal Musculoskeletal Comments: Hip pain "Rheumatoid arthritis in my hip" - Integumentary/Breasts Integumentary: Present: rash (on elbows, legs near ankles) - Neurological Neurological: Absent: headache(s) Exam Vital Signs: Temperature 97 F 02/27/17 07:50 Pulse Rate 94 02/27/17 07:50 Respiratory Rate 18 02/27/17 07:50 Blood Pressure 132/69 02/27/17 07:50 Pulse Oximetry 94 02/27/17 07:50 Height/Weight/BMI: Height 1.6 m Weight 119.3 kg Body Mass Index 46.4 - Constitutional Present: no acute distress, well nourished, well developed - Routine HEENT Exam Head: Present: normocephalic, atraumatic Eye: Present: EOMI, PERRL ENT: Present: mucous membranes moist, oropharynx clear, dentition normal - Routine Neck Exam Present: supple - Routine Respiratory Exam Present: CTA bilaterally - Routine Cardiovascular Exam Present: RRR - Routine Abdominal Exam Present: soft, normoactive bowel sounds, non distended, non tender - Routine Extremities Exam Present: edema (1+ LLE, no significant edema RLE). Absent: cyanosis, clubbing, joint swelling - Routine Skin Exam Present: rash (mild, on extensor surfaces of elbows) Comments: She has moderate erythema LLE just superior to her ankle, and this looks like she had a blister that ruptured, and her skin peeled off. She has some chronic- appearing crusting posterior lower leg that is very tender to the touch. There' s one linear area of cracking skin. This whole area appears fairly dry and without drainage or purulence. no fluctuance. She has a few erythematous spots RLE above her ankle - Routine Neurological Exam Present: alert, oriented X3, CN II-XII intact. Absent: motor deficit - Routine Psychiatric Exam Present: normal affect Results - Labs CBC & Chem 7: 02/27/17 04:32 02/27/17 04:32 Microbiology Results: Microbiology 02/25/17 17:05 Leg, Left Lower Gram Stain - Final 02/25/17 17:05 Leg, Left Lower Superficial Wound Culture - Preliminary Enterococcus species 02/25/17 16:18 Peripheral/Iv Start Gram Stain - Final 02/25/17 16:18 Peripheral/Iv Start Blood Culture - Preliminary Staphylococcus species 02/25/17 16:13 Peripheral/Iv Start Blood Culture - Preliminary No Growth After 1 Day Impression: LLE cellulitis, improving. Wound culture initially with MSSA. Positive blood culture 1/2 with CoNS and viridans Strep, likely contaminants. PAD CAD s/p CABG DM II, IR Atopic dermatitis Recommendation: Continue Ancef for now. I think her cellulitis is improving. She could probably be converted back to oral cephalexin in the next few days. I don't think she needs any treatment for her positive blood culture. I also doubt the light growth of Enterococcus in the wound culture is significant.
[2017-02-27] MEDS: ASCORBIC ACID 500 MG TABLET PO SCH (09:23)
[2017-02-27] MEDS: CHLORTHALIDONE 25 MG TABLET PO SCH (09:24)
[2017-02-27] MEDS: SALINE FLUSH 10ml SYRINGE IV PRN (09:24)
[2017-02-27] MEDS: MULTI-VITAMIN + MINERAL TABLET PO SCH (09:25)
[2017-02-27] MEDS: OMEGA-3 ACID ESTERS 1 GM CAPSULE PO SCH (09:26)
[2017-02-27 11:36] VITALS: BMI 46.5
--- NOTE | 2017-02-27 13:25 | Progress Note ---
- Date 02/27/17 Subjective: patient doing better overall. no acute issues overnight. no low blood sugars overnight. cellulitis on left lower leg continues to improve as does LLE edema and associated pain. no new or changing numbness/weakness/tingling in legs. no other skin changes or new rashes. no fevers, chills, headaches, stroke symptoms, focal neurologic deficits, fatigue, weakness, falls, trauma, injuries , vision changes, URI symptoms, sinus issues, appetite changes, night sweats, constitutional symptoms, dizziness, syncope, near-syncope, chest pain, SOA, orthopnea, PND. no palpitations, cough, sputum production. no hemoptysis. no abdominal pain, GERD symptoms, nausea, vomiting, hematemesis, coffee ground emesis, melena, BRBPR, constipation, diarrhea, bloody/black stools. no dysphagia. no new or changing muscle or joint aches. no boggy/inflammed or painful joints. ROM in left lower extremity and other joints normal now. no dysuria, hematuria, urinary frequency, flank pain, nocturia, urinary/bowel incontinance, polyuria, oliguria, urinary retention, other urinary symptoms/ changes. no mood changes, encephalopathic symptoms, depression symptoms, changes in cognition. no events called on telemetry. no new issues otherwise at this time. Objective Vital signs: Temperature 97 F 02/27/17 07:50 Pulse Rate 99 02/27/17 08:00 Respiratory Rate 18 02/27/17 07:50 Blood Pressure 132/69 02/27/17 07:50 Pulse Oximetry 94 02/27/17 07:50 Rhythm: Normal Sinus Rhythm Height/Weight/BMI: Height 1.6 m Weight 119.3 kg Body Mass Index 46.5 - Constitutional Present: no acute distress, morbidly obese, cooperative. Absent: thin, cachectic, diaphoretic, disheveled, combative, agitated, somnolent, obtunded - Routine HEENT Exam Head: Present: normocephalic, atraumatic Eye: Absent: periorbital ecchymosis, periorbital swelling ENT: Present: mucous membranes moist - Routine Respiratory Exam Present: CTA bilaterally. Absent: accessory muscle use, patient mechanically ventilated, dyspnea, decreased breath sounds, prolonged expiratory phase, rales , respiratory distress, rhonchi, stridor, wheezes, crackles, distant breath sounds, diminished air movement Comments: lung sounds heard in all lung casarez b/l at this time. all findings above bilateral unless otherwise noted. - Routine Cardiovascular Exam Present: RRR Comments: no new murmurs. cardiac exam unchanged from usual baseline. cellulitis and edema and pain to palpation in LLE continue to improve from yesterday modestly. pulses unchanged in LE's b/l at this time. no changes in perfusion status from previous baseline in LE's b/l at this time. compartments soft b/l in LE's at this time. no purpura, crepitus or clinical evidence of necrotizing process at this time. no new open areas from previous. no ulcers, blisters or other associated skin lesions. no new cellulitis or extending redness. no fluctuance /weeping/drainage/pustulance in area of cellulitis in LLE at this time. no new skin changes otherwise at this time and no changes from previous to uncovered areas. - Routine Abdominal Exam Present: soft (X4.), normoactive bowel sounds (X4.), non distended (X4.), non tender (X4.). Absent: tenderness (X4.), distended (X4.), rebound, guarding, firm, rigid, organomegaly, mass Comments: no ascites or jaundice. - Routine Exam Comments: no tenderness over bladder area. no clinical evidence of upper UTI at this time. - Routine Extremities Exam Comments: no changes from previous. - Routine Back/Spine/Pelvis Exam Comments: see the above. - Routine Musculoskeletal Exam Musculoskeletal: Present: moving extremities well - Routine Skin Exam Present: intact Comments: see the above. - Routine Neurological Exam Present: alert, oriented X3. Absent: altered mental status no changes neurologically from previous baseline. affect and cognition unchanged from usual baseline. no clinical evidence of photophobia, meningitis , encephalopathy at this time. - Routine Psychiatric Exam Present: normal affect, normal thought process, cooperative. Absent: auditory hallucinations, visual hallucinations, tactile hallucinations, depressed, anxious, agitated, paranoid, manic Comments: see the above. Results - Labs CBC & Chem 7: 02/27/17 04:32 02/27/17 04:32 Microbiology Results: Microbiology 02/25/17 16:18 Peripheral/Iv Start Gram Stain - Final 02/25/17 16:18 Peripheral/Iv Start Blood Culture - Preliminary Coag negative Staphylococcus Streptococcus viridans group 02/25/17 17:05 Leg, Left Lower Gram Stain - Final 02/25/17 17:05 Leg, Left Lower Superficial Wound Culture - Preliminary Enterococcus species 02/25/17 16:13 Peripheral/Iv Start Blood Culture - Preliminary No Growth After 1 Day Assessment and Plan Assessment and Plan: acute left lower leg cellulitis secondary to MSSA, failure of outpatient antibiotics, marked clinical improvement noted staphlococcus species growing in X1 of 2 blood cultures from admission enterococcus growing in wound culture thus far in small amount which I would surmise is contaminant peripheral vascular disease wound culture left lower extremity with MSSA done a few days ago as outpatient chronic venous insufficiency and venous stasis dermatitis X1 episode of asymptomatic hypoglycemia on the day of admission which has resolved multifactorial anemia T2DM HTN CAD hyperlipidemia high salt intake -continue inpatient, routine vitals with call parameters, I's and O's, daily weights, oxygen as needed, cardiac and diabetic low sodium diet, activity as tolerated, outlined cellulitis and following, leg elevation. given marked clinical improvement as well as MSSA growing in culture as outpatient there's no indication to switch abx for MRSA cover at this time. will continue as is noted below. small amount of enterococcus in wound culture is not likely infective organism. telemetry started by cardiovascular and will continue. -cbc's normal today. cmp's with sugars in 100's and otherwise unremarkable. GLUBS generally in 100's now. see above for blood and wound culture results. CRP at 33 and falling (was 39 on admission). see previous notes for other testing and results from this stay. -echocardiogram pending. -cbc, cmp in the AM. -continue ancef IV day 3, norco prn for pain, aspirin, multivitamin, vitamin C, metoprolol, chlorthalidone, novolog with meals, lisinopril, novolog s/s, GLUBS, hypoglycemia protocol. continue hold parameters put on bp meds. continue colace prn. continue levamir at 18 units qHS for now. -continue holding home metformin for now. -Dr. Montgomery of surgery and wound care team consulted. nutrition and education consulted. Dr. Banks of cardiovascular consulted and plans angiogram today. Dr. Stephanie Childers of infectious disease consulted and spoken with and she agrees with the above. it appears patient won't need terminal operations manager IV antibiotics. -further management decisions pending the above. atopic dermatitis -hold clobetasol cream for now. all other chronic medical conditions stable and no other changes to plan of care at this time. ppx -continue SQ lovenox. no SCD's secondary to cellulitis/vascular issues noted above. -continue PO diet for GI ppx. -FULL CODE -dispo continue inpatient today. possibly discharge to home tomorrow depending on how she does. DVT Prophylaxis: Lovenox GI Prophylaxis: other (continue PO diet.) Resuscitation Status: Full Code - Time spent with patient Time with patient PN: 25 minutes - Physician Narrative Narrative: Date: 02/27/17 Time: 1315 Sepsis Assessment - Evaluation Severe Sepsis: none seen
[2017-02-27] MEDS: INSULIN ASPART 100unit/ml INJECTION SQ SCH ×2 (13:50→17:20)
[2017-02-27] MEDS ORDERED: HEPARIN 1,000 UNITS/500 ML PREMIX (*CVL ONLY*) IV ONE (14:07)
[2017-02-27] MEDS ORDERED: LIDOCAINE 1% (10mg/ml) 30ml SDV INJ ONE (14:07)
[2017-02-27] MEDS ORDERED: FentaNYL 100 MCG/2 ML INJECTION ONE (14:10)
[2017-02-27] MEDS ORDERED: MIDAZOLAM 2mg/2ml INJECTION ONE (14:10)
[2017-02-27] MEDS ORDERED: NS 1,000 ML ONE (15:14)
[2017-02-27] MEDS ORDERED: ACETAMINOPHEN 325 MG TABLET PO PRN (15:53)
[2017-02-27] MEDS ORDERED: Bisacodyl EC TAB 5 MG TABLET PO PRN (15:53)
[2017-02-27] MEDS ORDERED: NITROGLYCERIN 0.4 MG SUBLINGUAL TABLET SL PRN (15:53)
[2017-02-27] MEDS ORDERED: MORPHINE SULFATE 4mg INJECTION IVP PRN ×2 (15:53)
[2017-02-27] MEDS ORDERED: ONDANSETRON 4 MG/2 ML INJECTION IVP PRN (15:53)
[2017-02-27] MEDS ORDERED: LORazepam 0.5 MG TABLET PO PRN (15:53)
[2017-02-27] MEDS ORDERED: ATROPINE 1 MG/ML INJECTION IVP PRN (15:53)
[2017-02-27] MEDS ORDERED: HYDROCODONE/APAP 7.5 MG/325 MG TABLET PO PRN (15:53)
[2017-02-27] MEDS ORDERED: PROMETHAZINE 25 MG INJECTION IVP PRN (15:53)
[2017-02-27] MEDS ORDERED: MAG-AL + SIM ORAL LIQUID 30ml PO PRN (15:53)
[2017-02-27] MEDS ORDERED: BISACODYL 10 MG SUPPOSITORY RECTALLY PRN (15:53)
[2017-02-27] MEDS ORDERED: METOCLOPRAMIDE 10mg/2ml INJECTION IVP PRN (15:53)
[2017-02-27] MEDS ORDERED: NS 1,000 ML IV SCH (16:15)
[2017-02-27] MEDS: HYDROCODONE/APAP 5mg/325mg TABLET PO PRN (16:25)
--- NOTE | 2017-02-27 17:02 | Progress Note ---
DATE OF SERVICE 02/27/2017 FINDINGS Ms. Coates was seen earlier today on afternoon rounds. The patient was complaining of still being n.p.o. for her upcoming peripheral arteriogram. The patient denied increasing pain or discomfort with her left lower extremity. EXAM VITAL SIGNS: Afebrile, normotensive. Last recorded vitals include temperature 97.0, pulse 92, respirations 18, blood pressure 105/63, SAO2 96% on room air. HEENT: Normocephalic. Pupils are equally round and react to light and accommodation. CHEST: Clear to auscultation bilaterally. HEART: Regular rate and rhythm. Normal S1 and S2 without gallops, murmurs or clicks. EXTREMITIES: Attention was focused to the left lower extremity. The erythema overall appears stable but did perhaps appear to have decreased from yesterday. Still without any evidence for open wound. The foot was warm to the touch. There is no significant pallor. The skin itself was fairly dry involving the distal calf as a result of a component of epidermolysis from her cellulitis. ASSESSMENT 56-year-old diabetic female with multiple medical comorbidities who presented with cellulitis involving the left lower extremity that failed outpatient medical therapy. PLAN The patient, as stated above, was to undergo a peripheral arteriogram earlier today. I did review the note performed by Infectious Disease. At this point in time I will go ahead and sign off from the patient's care. If the patient would develop an open wound or evidence for development of necrosis of the skin , please don't hesitate to recontact me if needed. [email or web address]
[2017-02-27] MEDS: INSULIN DETEMIR 100unit/ml INJECTION SQ SCH (21:54)
[2017-02-27] MEDS: SIMVASTATIN 40 MG TABLET PO SCH (21:54)
[2017-02-28] MEDS: CEFAZOLIN 1 G in NS 100 ML IV SCH ×3 (01:36→17:19)
[2017-02-28] MEDS: INSULIN ASPART 100unit/ml INJECTION SQ SCH ×3 (09:01→18:31)
[2017-02-28] MEDS: CHLORTHALIDONE 25 MG TABLET PO SCH (09:03)
[2017-02-28] MEDS: MULTI-VITAMIN + MINERAL TABLET PO SCH (09:03)
[2017-02-28] MEDS: LISINOPRIL 20 MG TABLET PO SCH (09:03)
[2017-02-28] MEDS: ASPIRIN 325 MG TABLET PO SCH (09:03)
[2017-02-28] MEDS: ENOXAPARIN 40 MG/0.4 ML INJECTION SQ SCH (09:04)
[2017-02-28] MEDS: ASCORBIC ACID 500 MG TABLET PO SCH (09:10)
[2017-02-28] MEDS: INSULIN ASPART 100unit/ml INJECTION SQ PRN (11:27)
[2017-02-28] MEDS: OMEGA-3 ACID ESTERS 1 GM CAPSULE PO SCH (11:27)
--- NOTE | 2017-02-28 12:59 | Cardiology Report ---
DATE OF PROCEDURE February 27, 2017 The patient is a pleasant 56-year-old lady who was admitted with nonhealing ulcer of the left foot and an abnormal lower extremity duplex study and was referred for further evaluation by angiography and possible intervention. Informed consent was obtained after explaining the procedure and the potential risks to the patient who agreed to proceed with the procedure. PROCEDURE 1. Abdominal aortography by placing catheter in abdominal aorta. 2. Selective left lower extremity angiogram using crossover technique and placing catheter in left SFA. 3. Runoffs of the right lower extremity through the right femoral sheath. 4. Successful Mynx deployment for hemostasis. TECHNIQUE She was prepped and draped in the usual sterile techniques. Conscious sedation was performed using Versed and fentanyl. 1% lidocaine was used for local anesthesia. Using modified Seldinger technique, arterial access was obtained into the right femoral artery with placement of a 6-English arterial sheath. Abdominal aortography showed smooth abdominal aorta with no significant lesions or aneurysms. Common iliacs, external and internal iliacs, and common femoral arteries were patent. Left renal artery was visualized which was patent. Right renal artery was not visualized. Selective left lower extremity angiogram showed patent profunda, SFA and popliteal artery. Left anterior tibial artery appeared to be occluded. However , this was an old one and it appears to be a small, nondominant vessel. Posterior tibial and peroneal arteries are large and dominant with no significant lesions. Runoffs of the right lower extremity showed patent profunda, SFA and right popliteal artery. Right anterior tibial artery is occluded. Right posterior tibial and peroneal arteries are patent with what appears to be a branch giving off of the peroneal artery towards the territory of the anterior tibial artery. The patient tolerated the procedure well with no complications. Mynx was used for hemostasis. IMPRESSION 1. Bilateral anterior tibial artery occlusion. However, the patient appears to be well vascularized. 2. Successful Mynx deployment for hemostasis. PLAN Medical management and wound care. BEAR
--- NOTE | 2017-02-28 20:38 | Progress Note ---
- Date 02/28/17 Subjective: no acute issues. no issues called on telemetry. cellulitis in left lower extremity about the same as yesterday. no new open lesions. no new extending cellulitis/weeping/drainage/fluctuance from that site in LLE. no new or changing numbness/weakness/tingling anywhere. cath site in groin doing well and no acute issues there. no extending cellulitis, weeping, drainage, fluctuance, pustulance, undue pain at that site. otherwise feels well. no headaches, stroke symptoms, syncope, dizziness, falls, trauma, injuries, ear pain, sinus pain, sore throat, fatigue, weakness, runny nose, near-syncope, chest pain, SOA, orthopnea, PND. edema about the same from yesterday. no vision changes, focal neurologic deficits, seizure symptoms, cranial nerve symptoms, palpitations, cough, sputum production, hemoptysis, abdominal pain, GERD symptoms, nausea, vomiting, diarrhea, constipation, hematemesis, coffee ground emesis, melena, BRBPR, dysphagia, GI warning symptoms, night sweats, appetite changes, encephalopathic symptoms, mood changes, depression symptoms. no dysuria, hematuria, nocturia, urinary/bowel incontinance, flank pain, urinary retention, polyuria, oliguria, other urinary symptoms/changes. no other muscle or joint aches from previous. no new back pain. no other skin changes or new rashes. no new or changing boggy/inflamed or painful joints. no BM since yesterday and patient notes this isn't uncommon at all. no new issues otherwise at this time. Objective Vital signs: Temperature 97.9 F 02/28/17 08:00 Pulse Rate 95 02/28/17 16:00 Respiratory Rate 20 02/28/17 16:00 Blood Pressure 113/75 02/28/17 16:00 Pulse Oximetry 95 02/28/17 16:00 Rhythm: Normal Sinus Rhythm Height/Weight/BMI: Height 1.6 m Weight 116.82 kg Body Mass Index 46.5 - Constitutional Present: no acute distress, morbidly obese, cooperative. Absent: thin, cachectic, diaphoretic, disheveled, combative, agitated, somnolent, obtunded - Routine HEENT Exam Head: Present: normocephalic, atraumatic Eye: Absent: periorbital ecchymosis, periorbital swelling ENT: Present: mucous membranes moist - Routine Respiratory Exam Present: CTA bilaterally. Absent: accessory muscle use, patient mechanically ventilated, dyspnea, decreased breath sounds, prolonged expiratory phase, rales , respiratory distress, rhonchi, stridor, wheezes, crackles, distant breath sounds, diminished air movement Comments: lung sounds heard in all lung casarez b/l at this time. all findings above bilateral unless otherwise noted. - Routine Cardiovascular Exam Present: RRR Comments: no new murmurs or changes. cardiac exam unchanged from usual baseline. no new edema from previous in LE's b/l at this time. cellulitis in LLE about the same from yesterday and unchanged. no new erosions/weeping/drainage/fluctuance/ pustulance/tenderness as compared to yesterday's exam. no blisters or other associated skin lesions. nicholsky sign negative. no changes in perfusion status of bilateral lower extremities at this time. IV sites look ok at this time. no clinical evidence of necrotizing process at this time. cath site in groin defered at this time as cardiology is following. - Routine Abdominal Exam Present: soft (X4.), normoactive bowel sounds (X4.), non distended (X4.), non tender (X4.). Absent: tenderness (X4.), distended (X4.), rebound, guarding, firm, rigid, organomegaly, mass Comments: no ascites or drainage. - Routine Exam Comments: no tenderness over bladder area. no clinical evidence of upper UTI at this time. - Routine Extremities Exam Comments: see above. no new edema from previous. compartments soft b/l in LE's at this time. - Routine Back/Spine/Pelvis Exam Comments: see above. - Routine Musculoskeletal Exam Musculoskeletal: Present: no joint swelling (no new joint swelling. ROM of left ankle and foot and lower leg unchanged from yesterday.) - Routine Skin Exam Comments: see above. no new skin changes from previous otherwise to uncovered areas. review of cath site in groin deferred as cardiology following and ROS negative for any issues there at this time. skin noted on previous exams in LLE has all been debrided. - Routine Neurological Exam Present: alert, oriented X3, moving all extremities. Absent: altered mental status no changes neurologically from previous baseline. no clinical evidence of depression, anxiety, altered mentation/sensorum/alertness, robert, anxiety, confusion, psychosis, delerium at this time. affect and cognition unchanged from usual baseline. - Routine Psychiatric Exam Present: normal affect, normal thought process, cooperative. Absent: auditory hallucinations, visual hallucinations, tactile hallucinations, depressed, anxious, agitated, paranoid, manic Comments: see above. Results - Labs CBC & Chem 7: 02/28/17 04:27 02/28/17 04:27 Microbiology Results: Microbiology 02/25/17 16:13 Peripheral/Iv Start Blood Culture - Preliminary No Growth After 3 Days 02/25/17 17:05 Leg, Left Lower Gram Stain - Final 02/25/17 17:05 Leg, Left Lower Superficial Wound Culture - Final Enterococcus faecalis Coag negative Staphylococcus 02/25/17 16:18 Peripheral/Iv Start Gram Stain - Final 02/25/17 16:18 Peripheral/Iv Start Blood Culture - Preliminary Coag negative Staphylococcus Streptococcus viridans group Assessment and Plan Assessment and Plan: acute left lower leg cellulitis secondary to MSSA, failure of outpatient antibiotics, overall improved. coag neagative/strep veridians staph growing in X1 of 2 blood cultures from admission which is not likely pathologic enterococcus faecalis, triana sensitive, growing in wound culture thus far in small amount which is very unlikely to be pathologic severe peripheral vascular disease with good apparent collateralization. medical management recommended by Dr. Banks. wound culture left lower extremity with MSSA done a few days ago as outpatient chronic venous insufficiency and venous stasis dermatitis X1 episode of asymptomatic hypoglycemia on the day of admission which has resolved multifactorial anemia T2DM HTN CAD hyperlipidemia high salt intake -continue inpatient, routine vitals with call parameters, telemetry per cardiology, I's and O's, daily weights, oxygen as needed, cardiac and diabetic low sodium diet, activity per cardiology, outlined cellulitis and following, leg elevation. continue care of cath site in groin as per cardiology. continue wound care orders, dressing changes and A&D ointment as per wound care team for LLE cellulitis. -cbc's normal. cmp's with stable blood sugars and otherwise unremarkable from previous baseline as well. GLUBS stable from previous. echocardiogram from earlier this stay with normal EF, notable concentric LVH and moderate pulmonary HTN and otherwise unremarkable. see previous notes for other testing and results from this stay. -cbc, cmp CRP in the AM. -continue ancef IV day 4, norco prn for pain, aspirin, multivitamin, vitamin C, metoprolol, chlorthalidone, novolog with meals, lisinopril, novolog s /s, GLUBS, hypoglycemia protocol. continue hold parameters put on bp meds. continue colace prn. continue levamir at 18 units qHS for now. continue zofran prn for nausea but d/c other meds from cath order set. -continue holding home metformin for now. -Dr. Montgomery of surgery and wound care team consulted and has signed off. nutrition and education consulted and have seen patient. Dr. Darren quintanilla cardiovascular consulted and angiogram notable for severe PVD with collateralization noted. medical management recommended. Dr. Stephanie Childers of infectious disease consulted and agrees with continuing ancef for now and agrees with interpretation of above culture results it would seem. it appears patient won't need termite control representative IV antibiotics and can be converted to oral antibiotics upon discharge. -further management decisions pending the above. atopic dermatitis -holding clobetasol cream for now. all other chronic medical conditions stable and no other changes to plan of care at this time. ppx -continue SQ lovenox. no SCD's secondary to cellulitis/vascular issues noted above. -continue PO diet for GI ppx. -FULL CODE -dispo continue inpatient today. I think patient needs one more day of IV antibiotics. compliance and follow up a concern. DVT Prophylaxis: Lovenox GI Prophylaxis: other (continue PO diet. ) Resuscitation Status: Full Code - Time spent with patient Time with patient PN: 25 minutes - Physician Narrative Narrative: Date: 02/28/17 Time: 2023 Sepsis Assessment - Evaluation Severe Sepsis: none seen
[2017-02-28] MEDS: SIMVASTATIN 40 MG TABLET PO SCH (20:50)
[2017-02-28] MEDS ORDERED: INSULIN DETEMIR 100unit/ml INJECTION SQ SCH (21:00)
--- NOTE | 2017-03-01 00:36 | Cardiology Progress Note ---
<Serina Rock - Last Filed: 03/01/17 15:51> Subjective Interval history: Pt is up to chair at beside, she denies discomfort. Reports feeling well. Exam Vital signs: Temperature 97.8 F 02/28/17 23:26 Pulse Rate 99 02/28/17 23:26 Respiratory Rate 15 02/28/17 23:26 Blood Pressure 103/64 02/28/17 23:26 Pulse Oximetry 95 02/28/17 23:26 - Constitutional no acute distress - Routine HEENT Exam Head: Present: normocephalic, atraumatic Eye: Present: PERRL - Routine Neck Exam Absent: JVD - Routine Respiratory Exam Present: CTA bilaterally - Routine Cardiovascular Exam Present: RRR, no murmur - Routine Abdominal Exam Present: soft - Routine Extremities Exam Present: edema (mild bilateral) - Routine Skin Exam Absent: cyanosis - Routine Neurological Exam Present: alert, oriented X3, CN II-XII intact - Routine Psychiatric Exam Present: normal affect, normal thought process Results 03/01/17 04:08 03/01/17 04:08 Cardiac Enzymes 02/28/17 Range/Units 04:27 AST 20 (14-36) U/L CBC 02/28/17 Range/Units 04:27 WBC 5.8 (4.5-11.0) T/MM3 RBC 4.32 (4.00-5.20) M/MM3 Hgb 12.4 (12-16) GM/DL Hct 39.8 (36-46) % Plt Count 298 (130-400) T/MM3 Neut # (Auto) 3.9 (1.8-7.7) T/MM3 Lymph # (Auto) 1.4 (1-4.8) T/MM3 [place] # (Auto) 0.3 (0-0.8) T/MM3 Eos # (Auto) 0.2 (0-0.5) T/MM3 Baso # (Auto) 0.0 (0-0.2) T/MM3 Comprehensive Metabolic Panel 02/28/17 Range/Units 04:27 Sodium 142 (134-144) MEQ/L Potassium 4.5 (3.6-5) MEQ/L Chloride 104 (98-107) MEQ/L Carbon Dioxide 26 (22-30) MEQ/L BUN 22.0 H (7-17) MG/DL Creatinine 0.8 (0.7-1.2) MG/DL Glucose 132 H (65-110) MG/DL Calcium 9.7 (8.4-10.2) MG/DL AST 20 (14-36) U/L ALT 23 (9-52) U/L Alkaline Phosphatase 103 (38-126) U/L Total Protein 8.1 (6.3-8.2) G/DL Albumin 4.4 (3.5-5.0) G/DL Intake and Output 02/28/17 02/28/17 03/01/17 14:59 22:59 06:59 Intake Total 890 / 890 300 / 300 700 / 700 Output Total 800 / 800 1200 / 1200 300 / 300 Balance 90 / 90 -900 / -900 400 / 400 Intake: IV 100 / 100 100 / 100 Cefazolin 1 g In Ns 100 ml @ 100 / 100 100 / 100 200 mls/hr IV Q8HR [facility] Rx#: [id number] Oral 790 / 790 200 / 200 700 / 700 Output: Urine 800 / 800 1200 / 1200 300 / 300 Other: Urine Appearance Clear Clear Clear Urine Color Bright Yellow Bright Yellow Bright Yellow Urine Odor Normal Stool Color Brown Stool Consistency Normal for Patient Size of Bowel Movement Moderate Weight 116.82 kg Patient Weight 03/01/17 06:59 Weight 116.82 kg - Imaging and Cardiology Imaging & Cardiology Narrative: 02/27/17 Selective left lower extremity angiogram showed patent profunda, SFA and popliteal artery. Left anterior tibial artery appeared to be occluded. However , this was an old one and it appears to be a small, nondominant vessel. Posterior tibial and peroneal arteries are large and dominant with no significant lesions. Runoffs of the right lower extremity showed patent profunda, SFA and right popliteal artery. Right anterior tibial artery is occluded. Right posterior tibial and peroneal arteries are patent with what appears to be a branch giving off of the peroneal artery towards the territory of the anterior tibial artery. The patient tolerated the procedure well with no complications. Mynx was used for hemostasis. IMPRESSION 1. Bilateral anterior tibial artery occlusion. However, the patient appears to be well vascularized. 2. Successful Mynx deployment for hemostasis. PLAN Medical management and wound care. 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 - Plan LE angiogram with possible CASINO PORTER/stent tomorrow - Npo after breakfast if eaten before 0800. - EKG and telemetry to ensure no arrhythmia which could lead to embolic blockages. 02/28/17 Angiogram done 02/27/17 shows diffuse disease below the knee, no high grade stenosis amendable to intervention; recommend maximize medical therapy. Continue antiplatelet therapy with ASA 81mg daily and home statin, zocor 20mg daily. Wound care per primary team. Hospital Course Summary Disclaimer: The visit summary below is not to be considered part of the above Progress Note. <Jorge Banks - Last Filed: 03/04/17 09:12> Exam Vital signs: Temperature 98.2 F 03/01/17 15:23 Pulse Rate 89 03/01/17 15:46 Respiratory Rate 20 03/01/17 15:23 Blood Pressure 103/82 03/01/17 15:23 Pulse Oximetry 92 03/01/17 15:23 Results 03/01/17 04:08 03/01/17 04:08 Assessment and Plan - Assessment and Plan (1) HTN (hypertension) Status: Chronic (2) Atherosclerosis of coronary artery bypass graft without angina pectoris Status: Chronic (3) Mixed hyperlipidemia Status: Chronic (4) Type 2 diabetes mellitus without complications Status: Chronic (5) Cellulitis of left lower extremity Status: Acute (6) Chronic venous insufficiency Status: Chronic - Attestation Attestation Narrative: 03/04/17 09:12 Recommendation After examining the patient I agree with the above assessment. I am involved in the formulation of the patient's plan of care. Hospital Course Summary Disclaimer: The visit summary below is not to be considered part of the above Progress Note.
[2017-03-01] MEDS: CEFAZOLIN 1 G in NS 100 ML IV SCH ×3 (00:49→17:38)
[2017-03-01] MEDS: HYDROCODONE/APAP 5mg/325mg TABLET PO PRN (02:12)
[2017-03-01] MEDS: MULTI-VITAMIN + MINERAL TABLET PO SCH (08:14)
[2017-03-01] MEDS: OMEGA-3 ACID ESTERS 1 GM CAPSULE PO SCH (08:14)
[2017-03-01] MEDS: ASCORBIC ACID 500 MG TABLET PO SCH (08:14)
[2017-03-01] MEDS: INSULIN ASPART 100unit/ml INJECTION SQ SCH ×3 (08:14→17:39)
[2017-03-01] MEDS: LISINOPRIL 20 MG TABLET PO SCH (08:14)
[2017-03-01] MEDS: ASPIRIN 325 MG TABLET PO SCH (08:14)
[2017-03-01] MEDS: CHLORTHALIDONE 25 MG TABLET PO SCH (08:14)
[2017-03-01] MEDS: ENOXAPARIN 40 MG/0.4 ML INJECTION SQ SCH (08:15)
[2017-03-01] MEDS: SALINE FLUSH 10ml SYRINGE IV PRN (08:15)
[2017-03-01] MEDS: NS FLUSH BAG 500ml IV PRN (09:09)
[2017-03-01 11:37] VITALS: RESP 20
[2017-03-01 15:23] VITALS: BP 103/82; TEMP 98.2; O2SAT 92
[2017-03-01 15:50] VITALS: PULSE 89
[2017-03-01] MEDS: INSULIN ASPART 100unit/ml INJECTION SQ PRN (17:39)
--- NOTE | 2017-03-01 18:36 | Progress Note ---
- Date 03/01/17 Subjective: patient doing well overall. no major issues. cath site in right groin healing well. denies any weeping/bleeding/drainage/fluctuance/pustulance/extending redness/cellulitis coming from this. no undue pain there. left lower extremity cellulitis continues to improve. some sluffing of skin and keratolysis continues with the A and D ointment and this is almost gone now. pain and edema in that extremity much improved as well. she's able to move her left lower extremity ankle/foot and other joints normally now. no new or changing numbness/weakness/tingling in any of the extremities. no new weeping/ pustulance/drainage/fluctuance/redness/new pain. no headaches, stroke symptoms , syncope, dizziness, near-syncope, falls, trauma, injuries, fatigue, weakness, URI symptoms, sinus issues, chest pain, SOA, orthopnea, PND. no new or changing issues in right lower extremity. no other new skin changes or rashes. no constitutional symptoms, cough, sputum production, hemoptysis, abdominal pain, palpitations, GERD symptoms, appetite changes. she's had X1 small BM since our last visit she says. no hematemesis, coffee ground emesis, melena, BRBPR, constipation, diarrhea, bloody/black stools, dysphagia. no new joint aches, muscle aches or other musculoskeletal issues. no focal neurologic deficits. no obtundation, altered mentation, changes in cognition, encephalopathy symptoms. no mood changes or depression symptoms. no boggy/ inflamed or swollen joints. no acute issues overnight. vitals have been stable. no events called on telemetry. no new issues otherwise at this time. Objective Vital signs: Temperature 98.2 F 03/01/17 15:23 Pulse Rate 89 03/01/17 15:46 Respiratory Rate 20 03/01/17 15:23 Blood Pressure 103/82 03/01/17 15:23 Pulse Oximetry 92 03/01/17 15:23 Rhythm: Normal Sinus Rhythm Height/Weight/BMI: Height 1.6 m Weight 115.7 kg Body Mass Index 46.5 - Constitutional Present: no acute distress, morbidly obese, cooperative. Absent: thin, cachectic, diaphoretic, disheveled, combative, agitated, somnolent, obtunded - Routine HEENT Exam Head: Present: normocephalic, atraumatic Eye: Absent: periorbital ecchymosis, periorbital swelling ENT: Present: mucous membranes moist - Routine Respiratory Exam Present: CTA bilaterally. Absent: accessory muscle use, patient mechanically ventilated, dyspnea, decreased breath sounds, prolonged expiratory phase, rales , respiratory distress, rhonchi, stridor, wheezes, crackles, distant breath sounds, diminished air movement Comments: lung sounds heard in all lung casarez b/l at this time. moving air well. all findings above bilateral unless otherwise noted. - Routine Cardiovascular Exam Present: RRR, no murmur Comments: cardiac exam unchanged from previous. no new edema in 's. groin exam deferred to cardiology as they've been following this and ROS unremarkable for that at this time. no changes in perfusion status of extremities b/l X4. pulses unchanged from previous in 's at this time. LLE edema and cellulitis moderately improved from yesterday. no new erosions/blisters or other associated lesions noted there. continuing keratolysis noted but no purpura, crepitus or clinical evidence of necrotizing process at this time. still with mild pain to palpation in that extremity but this is improved from yesterday as well. no clinical evidence of threatened limb b/l in LE's at this time. no changes neurovascularly and from a musculoskeletal standpoint from yesterday. - Routine Abdominal Exam Present: soft (X4.), normoactive bowel sounds (X4.), non distended (X4.), non tender (X4.). Absent: tenderness (X4.), distended (X4.), rebound, guarding, firm, rigid, organomegaly, mass, hernia Comments: no ascites or jaundice. - Routine Exam Comments: no tenderness over bladder area. no clinical evidence of upper UTI at this time. - Routine Extremities Exam Comments: no changes. previous IV site on back of right hand looks the same as yesterday. current IV site in right AC area looks normal too. no clinical evidence of infiltration, compartments syndrome, weeping, drainage, fluctuance, pustulance, edema, extending cellulitis from any of these areas. - Routine Back/Spine/Pelvis Exam Comments: see the above. - Routine Musculoskeletal Exam Musculoskeletal: Present: moving extremities well - Routine Skin Exam Present: intact Comments: no skin changes from previous otherwise to uncovered areas. see the above. - Routine Neurological Exam Present: alert, oriented X3. Absent: altered mental status no changes neurologically from usual baseline. no photophobia. no clinical evidence of meningitis at this time. no clinical evidence of robert, depression , anxiety, altered mentation/sensorum/alertness, psychosis, delerium. - Routine Psychiatric Exam Present: normal affect, normal thought process, cooperative. Absent: auditory hallucinations, visual hallucinations, tactile hallucinations, depressed, anxious, agitated, paranoid, manic Comments: see above. no clinical evidence of encephalopathy at this time. Results - Labs CBC & Chem 7: 03/01/17 04:08 03/01/17 04:08 Microbiology Results: Microbiology 02/25/17 16:13 Peripheral/Iv Start Blood Culture - Preliminary No Growth After 4 Days 02/25/17 17:05 Leg, Left Lower Gram Stain - Final 02/25/17 17:05 Leg, Left Lower Superficial Wound Culture - Final Enterococcus faecalis Coag negative Staphylococcus 02/25/17 16:18 Peripheral/Iv Start Gram Stain - Final 02/25/17 16:18 Peripheral/Iv Start Blood Culture - Preliminary Coag negative Staphylococcus Streptococcus viridans group Assessment and Plan Assessment and Plan: acute left lower leg cellulitis secondary to MSSA, failure of outpatient antibiotics, overall improved. coag neagative/strep veridians staph growing in X1 of 2 blood cultures from admission which is not likely pathologic enterococcus faecalis, triana sensitive, growing in wound culture thus far in small amount which is very unlikely to be pathologic infiltrated IV back of right hand, no evidence of complications at this time. right AC IV looks good. severe peripheral vascular disease with good apparent collateralization. medical management recommended by Dr. Banks. wound culture left lower extremity with MSSA done a few days ago as outpatient chronic venous insufficiency and venous stasis dermatitis X1 episode of asymptomatic hypoglycemia on the day of admission which has resolved multifactorial anemia T2DM HTN CAD hyperlipidemia high salt intake -continue inpatient, routine vitals with call parameters, telemetry per cardiology, I's and O's, daily weights, oxygen as needed, cardiac and diabetic low sodium diet, activity per cardiology, outlined cellulitis and following, leg elevation. continue care of cath site in groin as per cardiology. continue wound care orders, dressing changes and A&D ointment as per wound care team for LLE cellulitis. will likely discharge to home today. -cbc's normal. cmp's with stable blood sugars and otherwise unremarkable from previous baseline as well. GLUBS stable from previous. CRP down to 24. see previous notes for other testing and results from this stay. -continue ancef IV day 5, norco prn for pain, aspirin, multivitamin, vitamin C, metoprolol, chlorthalidone, novolog with meals, lisinopril, novolog s /s, GLUBS, hypoglycemia protocol. continue hold parameters put on bp meds. continue colace prn. continue levamir at 18 units qHS for now. continue zofran prn for nausea. likely convert ancef to keflex on discharge per infectious disease recommendations. -continue holding home metformin for now but ill restart on discharge and will restart tomorrow given she has recently had IV contrast. communication order sent in to nursing to inform patient of this. -Dr. Montgomery of surgery and wound care team consulted and has signed off. nutrition and education consulted and have seen patient. Dr. Banks of cardiovascular consulted and angiogram notable for severe PVD with collateralization noted. medical management recommended. Dr. Stephanie Childers of infectious disease consulted and agrees with continuing ancef for now and agrees with interpretation of above culture results it would seem. convert to PO keflex for 7 days. it appears patient won't need half-way IV antibiotics. atopic dermatitis -holding clobetasol cream for now. all other chronic medical conditions stable and no other changes to plan of care at this time. ppx -continue SQ lovenox. no SCD's secondary to cellulitis/vascular issues noted above. -continue PO diet for GI ppx. -FULL CODE -dispo discharge to home today. see discharge orders and summary for details. DVT Prophylaxis: Lovenox GI Prophylaxis: other (PO diet. ) Resuscitation Status: Full Code - Time spent with patient Time with patient PN: 50 minutes - Physician Narrative Narrative: Date: 03/01/17 Time: 1829 Sepsis Assessment - Evaluation Severe Sepsis: none seen
--- NOTE | 2017-03-04 14:27 | Discharge Summary ---
DATE OF ADMISSION: 02/25/2017 DATE OF DISCHARGE: 03/01/2017 MODE OF ADMISSION: Inpatient ATTENDING PHYSICIAN Dr. Sutton of [facility]. ADMITTING PHYSICIAN Dr. Sutton of [facility]. CONSULTING PHYSICIANS Dr. Shelly Childers of Infectious Disease. Dr. Jorge Banks of Cardiovascular Dr. Montgomery of Wound Care. ANCILLARY SERVICES DURING THE STAY Wound Care Nursing was consulted. Dietary was consulted. DISCHARGE DIAGNOSES 1. Acute left lower extremity cellulitis secondary to methicillin-sensitive Staph aureus, failure of outpatient antibiotics, overall vastly improved. 2. Coagulase-negative staph as well as Strep viridans growing x1 of two blood cultures from admission which are not likely pathologic and likely are contaminants. 3. Enterococcus faecalis, pansensitive, growing in wound culture from this stay which is likely not to be pathologic and likely represents a contaminant. 4. Infiltrated IV on the back of right hand which shows no other evidence of complications at this time. This is improving. 5. Severe peripheral vascular disease. 6. Chronic venous insufficiency and venous stasis dermatitis. 7. One episode of asymptomatic hypoglycemia on the day of admission. This is likely secondary to insulin. 8 . Multifactorial anemia which is resolved. 9. Type 2 diabetes. 10 Noncompliance with a low sodium and diabetic diet. 11. Atopic dermatitis. 12. Constipation. CONDITION ON DISCHARGE The patient is discharged to home in stable and good condition. DISCHARGE MEDICINES 1. Colace 100 mg p.o. b.i.d. p.r.n. constipation, #30 with no refills. 2. [place] 5/325, 1-2 tablets p.o. q.6h. p.r.n. pain x 14 days with no refills. The patient is not to take any other Tylenol products with this. 3. Levemir 18 units subcutaneously q.h.s. This was decreased from 36 units subcutaneously q.h.s. secondary to the patient's low blood sugar on the day of admission. 4. Keflex 500 mg p.o. q.6h. x 7 more days with no refills. 5. Zocor 40 mg p.o. q.h.s. 6. Vitamin C 500 mg p.o. daily. 7. NovoLog, 14 units with breakfast and lunch and then 23 units with supper. 8. Metformin 500 mg p.o. b.i.d. The patient told to restart this on Thursday of this week which will give her a full 2-3 days from when she received the contrast. 9. Metoprolol tartrate 12.5 mg p.o. b.i.d. 10. Fish Oil 1000 mg p.o. daily. 11. Aspirin 325 mg p.o. daily. 12. Multivitamin one tablet p.o. daily. 13. Chlorthalidone 25 mg p.o. daily. 14. Lisinopril 20 mg p.o. daily. 15. Patient's methylsulfonylmethane was discontinued as were any other Tylenol products. DIET Discharge diet is cardiac and diabetic with no more than 2 g of sodium daily. ACTIVITY/OTHER INSTRUCTIONS 1. The patient instructed in regard to the patient's catheterization site on groin. She will limit activity for 2 days. She will lift no more than 10 pounds and no pushing or pulling for 1 week. The patient will not drive or operate machinery for 2 days. She will be getting a call from Cardiac Rehab to schedule an appointment. The patient will resume normal activity levels after that time. 2. In regard to the leg infection. The patient will keep her legs elevated as much as possible as she has here at the hospital. The patient will apply A&D ointment daily to left lower extremity and change Kerlix gauze daily. 3. Pain management. The patient will continue [place] as noted above. 4. As far as wound care goes, please see above. 5. In regard to the patient's catheterization site in the right groin, the patient will remove the dressing after 24 hours. She will keep the site clean and dry. She will be go in any bathtubs or swimming for 1 week. She may shower. 6. Nursing did provide the Kerlix and A&D ointment for the patient. ADDITIONAL INSTRUCTIONS 1. To nursing. Nursing will discontinue all lines, IVs and telemetry before discharge that the patient didn't come in on. 2. If any issues worsen and/or new ones occur, the patient will be seen immediately. 3. If the patient can't access her medications or make her appointments, she will let us know right away. 4. The patient will check her blood sugars before meals and at bedtime daily until our followup visit. She will keep a log. She will send in this log to Dr. Sutton's nurses every 3 days. She will call the doctor right away for a blood sugar greater than 250 and/or less than 80 at any time. EXPECTED SYMPTOMS/SIGNS 1. There will be bruising and tenderness at the site with regards to her catheterization area. 2. The redness, swelling, pain in your left lower extremity should continue to improve and eventually resolve. Orders given to contact Dr. Sutton during business and after business hours. Dr. Banks did leave his contact information as well. For any pending lab results, the patient will follow up with provider. In regards to the KanQuit line: This not applicable as the patient does not use tobacco currently. FOLLOW-UPS 1. The patient will follow up with Dr. Banks of Cardiovascular in 2 weeks. 2. The patient will follow up with Dr. [facility] of [facility] in 1 week with a CBC and CMP done the day before and sent to him. PERTINENT VITAL SIGNS DURING THE STAY The patient was afebrile while here. Heart rate, telemetry, respiratory rate, blood pressures, oxygen saturations were all unremarkable. Respiratory rates as noted above were normal. There were no major issues with vital signs while here. PERTINENT LABORATORY DONE WHILE HERE The patient's white blood cell count was normal throughout. Hemoglobin was 11.4 when she came in. It trended up and was 12.2 by discharge. CBCs were otherwise unremarkable while here. PTT and INR were normal on admission. The patient's D-Dimer was elevated on the admission at 441. As far as the patient' s chemistries go, the patient's sodium, potassium, chloride, acid base status, renal function were all unremarkable while here. Blood sugars were generally in the low to mid-100s with a few outliers in the 200s. There was a blood sugar of 44 on the day of admission with which the patient was otherwise asymptomatic and the insulin adjusted as noted above. Calcium, calcium, magnesium, phosphorus were unremarkable while here. Liver functions tests were normal while here. C-reactive protein on admission was 39.2 and it trended down to 24 by discharge. Protein indices were otherwise unremarkable. Lactic acid and procalcitonin were normal on admission. TSH was normal on admission. Urinalysis was normal on admission. As far as microbiology goes. Please see above listed diagnoses for information on the wound cultures and blood cultures x 2 while here. PERTINENT IMAGING AND OTHER TESTING DONE WHILE HERE EKG done on 02/26/2017 was generally unchanged from the patient's usual baseline. Dr. Banks followed on this. Bilateral lower extremity venous Doppler done the day of admission was negative for any blood clot. Bilateral lower extremity artery ultrasound done on the day of admission showed 50-75% stenosis in the left common femoral and superficial femoral arteries with decreased flow in the calf arteries. There was no complete occlusion. There was also mild, less than 50% stenosis in the right mid superficial femoral artery with slightly diminished flow in the right calf arteries. Echocardiogram done 02/26/2017 showed an ejection fraction of 67%. There was concentric left ventricular hypertrophy. There was mild mitral regurgitation as well as mild tricuspid regurgitation. There was moderate pulmonary hypertension with an estimated pulmonary artery systolic pressure of 45. There was trace pulmonary insufficiency as well. Arteriography of the lower extremities done on 02/27/2017 showed bilateral anterior tibial artery occlusion with what appears to be good collateralization and alternate vascularization. They recommended medical management. There was no evidence of threatened limbs. HISTORY OF PRESENT ILLNESS AND HOSPITAL COURSE This is a pleasant 56-year-old female known to our clinic. She has chronic known history of venous insufficiency and stasis. She has known coronary and peripheral vascular disease as well and follows with Dr. Banks for that. Her acute issues started about 2 weeks previous to her admission. Her right lower extremity didn't change much, but her left lower extremity became increasingly swollen and red. There was increased pain there as well. Review of systems and physical exam were unremarkable for compartment syndrome as well as threatened limb. The patient was seen as an outpatient and put on Keflex and this did not work. She continued to eat a great deal of sodium every day and was not compliant with her diet. She was generally not keeping her legs elevated. She was admitted to [facility] for the above. A wound culture and gram stain grew out methicillin-sensitive Staph aureus as an outpatient the week previous to admission. Based on this, the patient was started on an Ancef IV. Her legs were also elevated. Wound Care started her on A&D ointment daily with Kerlix bandages changed daily. We provided [place] as needed for pain. Infectious Disease was consulted for the culture results from this stay as noted above and these were considered to be contaminants. The patient improved markedly by discharge and the pain, swelling as well as redness had improved greatly. She was getting around well on discharge. Extensive vascular workup was undertaken as noted above and we will continue medical management based on Dr. Banks's consultation. The patient's inflammatory markers continue to improve. Please see above for the extensive imaging and laboratory evaluation undertaken on behalf of this issue for the patient. The patient was seen by Nutrition while here and was consulted on appropriate diabetic and low sodium diets. In speaking with Infectious Disease, we did decide to restart Keflex as an outpatient as she had done so well on the Ancef. It is likely the MSSA in the culture as an outpatient was the true causative organism and at that the above- listed culture results were likely contaminants and not pathologic. Infectious Disease agreed with this. Wound care and Dr. Montgomery were consulted, but the patient did not require any significant debridement. We will follow this as an outpatient as noted above. In regard to the patient's infiltrated IV at the back of the right hand. This healed up quite nicely and there was no evidence of compartment syndrome or neurovascular compromise. Her IV site was moved to the right AC area and this did fine. In regard to the patient's one episode of asymptomatic hypoglycemia on the day of admission. Her blood sugars were actually great while here on 18 units of Levemir. She was otherwise continued on her home insulin. Her metformin was held given her hospitalization and the administration of the contrast dye, but was restarted as noted above as an outpatient. She was ordered to check blood sugars as noted above. It is likely her blood sugars will go up when she goes home and starts eating a less controlled diet, so will have to monitor this closely. Please see above for these instructions. The patient was mildly anemic on admission but this resolved. Will follow this as an outpatient. In regard to the patient's type 2 diabetes. Please see above for this, and we will follow this further as an outpatient. In regard to the patient's history of atopic dermatitis. She follows with Dr. Clay of Dermatology as an outpatient for this. We are currently holding her clobetasol cream. This did not play into her admission in any great length. The patient was on subcutaneous Lovenox while here for DVT prophylaxis. For GI prophylaxis the patient was on an oral diet. The patient was a FULL CODE while here. DISPOSITION Disposition is to home in stable and good condition. MTDD
== END 2017-03-01 19:15 | disposition home or self-care (01) | DRG 603 ==
LOC: MED 13:46 → SRG 02-27 15:55
PROVIDERS: ADMIT Internal Medicine; ATTEND Internal Medicine